=== PATIENT | male | born 1935 | race Caucasian/White ===

== ENCOUNTER 2023-01-04 14:23 | Observation (INO) | payer MEDICARE, SELFPAY ==
[2022-12-30 14:35] VITALS: BMI 26.1
--- NOTE | 2022-12-30 14:56 | PC.NURSE ---
Report to the Outpatient Waiting Room, entrance under the green pavilion located off [facility], at time _8:15AM on date __01/03/23 . Planned Procedure Time: __10:15AM . Time changes happen often and if your time is changed the preop area will call you the afternoon before. - You and your visitor will be asked to self-screen and do not enter if you have any COVID symptoms. - A mask is optional within the hospital at this time. Patients may have clear liquids (water, carbonated beverages, clear teas, apple juice) until 3 hours prior to surgery with a maximum of 20 ounces. - No food from midnight until time of surgery Take the following medications with a SIP of water the morning of surgery: ___AMLODIPINE, LEVETIRACETAM, SERTRALINE, NITROFURANTOIN DO NOT STOP ANY OF YOUR OTHER PRESCRIPTION MEDICATIONS PRIOR TO SURGERY ?EXCEPT THE FOLLOWING Medications to discontinue per physician ___HOLD ASPIRIN & PLAVIX STARTING NOW (12/30/22)PER DR DAWSON/TRICIA. HOLD ALL VITAMINS/SUPPLEMENTS 3 DAYS PRE-OP- LAST DOSE 12/30/22 Please no make-up, nail spanish, hairspray, perfume, deodorant, or body powder the day of surgery. No jewelry (including any body piercings) or valuables the day of surgery, leave them at home. Please take a shower or bath the night before, or the morning of, surgery with an antibacterial soap. Wear comfortable, loose fitting clothing. Children are encouraged to wear pajamas. - Jewelry must be removed prior to entering the operating room. Rings and piercings that are not removed may be cut off. - The hospital will not accept responsibility for valuables. - Please leave all valuables, including medications, at home the day of surgery. If you are going home after surgery, a licensed pack train driver must drive you home. - NO public transportation without another adult if you receive anesthesia. - We recommend that an adult stay with you for 24 hours following discharge. - We also recommend that you do not drive, make important decision, drink alcoholic beverages, or take any drugs that were not prescribed by your health care provider for at least 24 hours after your discharge time. Follow any additional instructions given to you from your surgeon. If you or anyone in your household have experienced Covid symptoms in the past week, please notify your surgeon or the nurse liaison at the phone number below for possible testing. Telephone instructions given to __PT'S (GEENA) and asked if any additional questions and then verbalized understanding. Patient advised to call surgeon office or pre surgery nurse liaison [phone] if any additional questions.
--- NOTE | 2023-01-02 14:29 | WPDANESEPPF ---
Anes - Initial Pre Proc Eval Procedure: Operation Date: 01/03/23 10:15 Proposed Procedures p Cystoscopy, Retrograde Urethrogram, Possible Urethral Dilation, - Ricki Leyva MD s Possible Insertion of Suprapubic Catheter - Ricki Leyva MD Date/Time: 01/02/23 14:29 Surgeon: Ricki Leyva MD Pre Op Diagnosis: gross hematuria abnormal psa Patient Data Age: 87 Gender: M Height: 1.73 m Weight: 78 kg Allergies Allergy/AdvReac Type Severity Reaction Status Date / Time tetanus and diphtheria Allergy Unknown rash Verified 01/03/23 10:09 toxoids Home Medications Medication Instructions Recorded Confirmed Type magnesium oxide 400 mg (241.3 mg 400 mg PO DAILY 02/12/20 12/30/22 History magnesium) tablet (MagOx) aspirin 81 mg tablet,delayed 81 mg PO DAILY 04/13/22 12/30/22 History release (Adult Aspirin Regimen) pantoprazole 40 mg tablet,delayed 40 mg PO QAM #90 tabs 06/08/22 12/30/22 Rx release clopidogrel 75 mg tablet See Rx Instructions .Route 09/13/22 12/30/22 Rx .COMPLEX #90 tabs albuterol sulfate 90 mcg/actuation See Rx Instructions .Route 10/03/22 12/30/22 Rx aerosol inhaler .COMPLEX #9 grams flash glucose scanning reader #1 ea 10/03/22 10/03/22 Rx (FreeStyle Shanae 2 [place]) tamsulosin 0.4 mg capsule (Flomax) 0.4 mg PO DAILY #90 caps 11/01/22 12/30/22 Rx metformin 500 mg tablet 1,000 mg PO BID #360 tabs 12/21/22 12/30/22 Rx amlodipine 10 mg tablet 10 mg PO HS 12/30/22 12/30/22 History atorvastatin 80 mg tablet (Lipitor) 80 mg PO HS 12/30/22 12/30/22 History levetiracetam 750 mg tablet 750 mg PO BID 12/30/22 12/30/22 History nitrofurantoin 100 mg PO BID 12/30/22 12/30/22 History monohydrate/macrocrystals 100 mg capsule sertraline 100 mg tablet 150 mg PO QAM 12/30/22 12/30/22 History sitagliptin phosphate 100 mg 1 mg PO QAM 12/30/22 12/30/22 History tablet (Januvia) Patient hx anesthesia problems: none Family hx anesthesia problems: none Results Review: All pre-operative results and documents have been reviewed as part of the pre-operative evaluation. [facility] Past Medical History Medical History (Updated 12/13/22 @ 10:52 by Ramin Luke MD) Arthritis Bilateral knee pain CAD (coronary artery disease) Diabetes Frequent falls GERD (gastroesophageal reflux disease) Hearing problem Hypertension Parkinson disease Seizure disorder TIA (transient ischemic attack) Surgical History Surgical History S/P TURP Family History Family History Mother Family history of malignant neoplasm Mother Colon cancer Breast cancer Sibling Cancer CAD (coronary artery disease) Hypertension Social History Social History Smoking packs per day: 1 Smoking cigarettes per day: 20.0 Years smoked: 30 Smoking pack-years: 30.00 Smoking status: Former smoker Tobacco type: cigarettes Smoking end date: 01/28/75 Alcohol intake: never Substance use: never Substance use type: does not use Living arrangements: with family Additional living arrangements comments: Occupation/Education: retired Gender identity (if verbalized by the patient): Male Spiritual care concerns: No Agree to blood products: Yes Anes - Eval Final PreProcedure Day of Procedure 01/02/23 14:29 Patient weight: overweight Heart: regular rate and rhythm Lungs: clear to auscultation and normal air movement Airway: Mallampati scale class II Neurological: alert and oriented Last oral intake: >/= 8 hours ASA classification: III Emergent: no Anesthetic plan: proceed Anesthesia type and monitoring: general LMA Results Review: All pre-operative results and documents have been reviewed as part of the pre-operative evaluation. Informed Consent: The patient's anesthetic plan and its att
[2023-01-03] VITALS (21 sets, daily range): BP systolic 132–173; BP diastolic 79–99; PULSE 69–77; RESP 10–19; TEMP 36.2–36.7; O2SAT 96–100
[2023-01-03 09:17] LABS: Glucose Point of Care 187 mg/dl (65-105)
[2023-01-03] MEDS: LACTATED RINGERS 1,000 ML 30 ML IV CONT (10:08)
--- NOTE | 2023-01-03 10:10 | WPDHPUPDATE1 ---
History and Physical Update Update Date/Time: 01/03/23 10:10 History and Physical has been reviewed, including an updated exam of the patient. There are NO changes in the patient's condition. Risks, benefits, and alternatives have been discussed and questions answered. Patient agrees to proceed with procedure. Proceed with retrograde urethrogram, cystoscopy, possible suprapubic tube
[2023-01-03] MEDS: ceFAZolin 2 GM/D5W 50 ML 2 GM/50 ML BAG IVPB (10:27)
[2023-01-03] MEDS: LIDOCAINE HCL 2% GEL UROJET 10 ML PKG MUCOUS MEM (10:43)
--- NOTE | 2023-01-03 11:03 | W.PM.PROC2 ---
Procedure Note - Detailed Date of Procedure 01/03/23 Pre-op Diagnosis gross hematuria abnormal psa , urethral stricture Post-op Diagnosis Same Procedure Performed Retrograde urethrogram, cystoscopy, urethral dilatation, complex Mcclain catheter placement Surgeon Ricki Leyva MD Anesthesia General Description of Procedure Patient is taken the operative suite correctly identified. Once anesthesia was obtained he was placed in the dorsal lithotomy position prepped and draped usual sterile fashion. Nineteen Polish scope inserted into the urethra. Once we got to the prostatic urethra though the pathway into the bladder was not apparent. He has several false passages. This may have been from fusion of the tissue together after his laser TURP many years ago. At this point time a 16 Polish red rubber catheter was inserted in the meatus and retrograde is performed. Contrast did make its way into the bladder. At this point a flexible ureteral scope was then used. I was able to find my way into the bladder the using this manner. A superstiff wire was then inserted into the bladder through the scope. I dilated the urethra using Amplantz dilators up to 22 fr. Nineteen Polish scope was then inserted following the pathway of the guidewire. There was no apparent tumors noted in the bladder. It did appear somewhat capacious in nature. I then placed a [address] Mcclain 20 Polish by incising the end of it and passed over the guidewire. 20 cc were placed in balloon. This was done as there was some oozing from the prostatic urethra. This was connected to the continuous bladder irrigation. Patient is taken recovery stable condition. If his urine clears to be discharged home the Mcclain catheter and have it removed next Monday or Monday for voiding trial. If this becomes a recurring problem he may need a formal transurethral resection of his prostate. This compares to take a lebron please send a copy to my office Drains Yes Packing No Pathology None sent Complications No immediate complications Condition Stable Disposition PACU
[2023-01-03 11:21] LABS: Glucose Point of Care 155 mg/dl (65-105)
--- NOTE | 2023-01-03 12:10 | SUR.PHASEI ---
Dr. Leyva at bedside to assess urine. CBI off for 25 minutes with urine getting darker in color. Dr. Leyva stated to resume CBI for a bit longer and will reassess patient.
--- NOTE | 2023-01-03 13:52 | SUR.PHASEI ---
1352 - MD Leyva notified of pt. catheter showing pink tinged urine output despite CBI. Pt. is to be admitted overnight per MD Leyva.
--- NOTE | 2023-01-03 15:12 | ADMGEN ---
This patient, Fabien Tanner, was admitted to Medical Room 243-01. Patient/family oriented to hospital policies and general routines including ID bracelet, bed and alarms, visiting hours, pain management, procedures, bathroom and other care routines, personal items, smoking policy, room service/diet, and visiting hours. Information on how to activate the Rapid Response Team has been discussed. Patient/Family are encouraged to report perceived risks to care and to ask questions if they do not understand what they are told or what they should do.
[2023-01-03] MEDS: metFORMIN HCL 500 MG TABLET 1000 MG PO (17:13)
[2023-01-03] MEDS: ceFAZolin 1 GM/NS 50 ML 1 GM/50 ML BAG IVPB (17:13)
[2023-01-03] MEDS: DOCUSATE SODIUM 100 MG CAPSULE PO (17:13)
[2023-01-03] MEDS: ATORVASTATIN 40 MG TABLET 80 MG PO (20:01)
[2023-01-03] MEDS: levETIRAcetam 250 MG TABLET 750 MG PO (20:01)
[2023-01-03] MEDS: amLODIPine BESYLATE 5 MG TABLET 10 MG PO (20:01)
[2023-01-03 21:20] LABS: Glucose Point of Care 230 mg/dl (65-105)
--- NOTE | ~2023-01-04 | XR_ITS ---
EXAMINATION: XR urethrocystogram DATE: 01/03/2023 12:05 INDICATION: Urethral stricture. TECHNIQUE: 34 intraoperative fluoroscopic views of the pelvis were obtained. I was not present. Fluor oscopy exposure time was 30 seconds. COMPARISON: None. FINDINGS: There is a stricture of the prosthetic urethra. Images demonstrate a dilator in the urethra . IMPRESSION: 1. 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 Reviewed, dictated and finalized at location A.
[2023-01-04 00:45] VITALS: BP 144/68; PULSE 72; RESP 18; TEMP 36.7; O2SAT 99
[2023-01-04] MEDS: ceFAZolin 1 GM/NS 50 ML 1 GM/50 ML BAG IVPB (01:34)
[2023-01-04 04:45] VITALS: BP 168/85; PULSE 72; RESP 18; TEMP 36.7; O2SAT 98
[2023-01-04 05:13] LABS: Hematocrit 35.8 % (42.0-52.0); Hemoglobin 12.4 g/dL (14.0-18.0)
[2023-01-04 05:22] LABS: Anion Gap 4 mmol/L (8-16); Blood Urea Nitrogen 19 mg/dL (9-20); Calcium 8.8 mg/dL (8.4-10.2); Carbon Dioxide 31 mmol/L (22-30); Chloride 98 mmol/L (98-107); Estimated CRCL calculation 32 ml/min; Estimated Glomerular Filt Rate 48; Glucose 184 mg/dL (65-110); Potassium 4.7 mmol/L (3.4-5.0); Sodium 133 mmol/L (137-145)
[2023-01-04 08:00] VITALS: O2SAT 98
[2023-01-04] MEDS: CEPHALEXIN 500 MG CAPSULE PO ×4 (08:08→20:11)
[2023-01-04] MEDS: metFORMIN HCL 500 MG TABLET 1000 MG PO ×2 (08:08→16:36)
[2023-01-04] MEDS: TAMSULOSIN HCL 0.4 MG CAPSULE PO (08:09)
[2023-01-04] MEDS: DOCUSATE SODIUM 100 MG CAPSULE PO ×2 (08:09→16:36)
[2023-01-04] MEDS: levETIRAcetam 250 MG TABLET 750 MG PO ×2 (08:09→20:10)
[2023-01-04] MEDS: SERTRALINE HCL 50 MG TABLET 150 MG PO (08:09)
[2023-01-04] MEDS: PANTOPRAZOLE 40 MG TABLET PO (08:09)
--- NOTE | 2023-01-04 09:39 | WPDANESPN ---
Anes - Prog Note Post-Op Date/Time: 01/04/23 09:39 Cardiovascular status: normal Respiratory status: normal Airway patency: baseline Mental status: baseline Post-Op hydration status: normal Vital Signs: Last Vital Signs Temp 98.0 F 01/04/23 04:45 Pulse 72 01/04/23 04:45 Resp 18 01/04/23 04:45 BP 168/85 H 01/04/23 04:45 Pulse Ox 98 01/04/23 08:00 O2 Del Method Room Air 01/04/23 08:00 O2 Flow Rate 6 01/03/23 11:25 Pain Score (VAS): 0 I/O: Intake & Output 01/03/23 01/04/23 01/04/23 23:59 07:59 15:59 Intake Total 810 50 360 Output Total 6997 6060 Balance -5715 -6019 360 Laboratory Tests 01/04/23 04:39 01/04/23 04:39 01/03/23 01/03/23 01/04/23 11:18 21:17 04:39 Hgb 12.4 L Hct 35.8 L Sodium 133 L Potassium 4.7 Chloride 98 Carbon Dioxide 31 H Anion Gap 4 L BUN 19 Creatinine 1.40 H Estim Creat Clear Calc 32 Estimated GFR 48 L Glucose 184 H POC Capillary Glucose 155 H 230 H Calcium 8.8 Post-procedural complaints: none Patient Feedback: Patient satisfied with anesthetic care.
[2023-01-04 10:15] VITALS: BP 136/71; PULSE 75; RESP 14; TEMP 36.4; O2SAT 99
--- NOTE | 2023-01-04 14:07 | WPDUROPN2 ---
Progress Note: A&P Assessment and Plan (1) Urethral stricture: Code(s): N35.919 - Unspecified urethral stricture, male, unspecified site Status: Acute Assessment and Plan: Keep overnight on CBI, wean to off in the morning to re-assess. If clear tomorrow of CBI ok to discharge home. Subjective Subjective Date/Time Seen: 01/04/23 14:07 Retrograde Urethrogram, Cystoscopy, Complex Mcclain Cath Urethral Dilation. Patient doing well, tolerating diet and activity well. Urine clear on CBI, but got a little bloody with clots after CBI was weaned off. Patient will stay overnight back on CBI. Post Op day: 1 Review of Systems Cardiovascular: Cardiovascular: Denies chest pain Respiratory: Respiratory: Reports no additional respiratory complaints Gastrointestinal: Gastrointestinal: Denies abdominal pain, Denies nausea and Denies vomiting Genitourinary: Genitourinary: Reports hematuria, Denies flank pain, Denies urinary frequency, Denies urinary hesitancy, Denies urinary incontinence and Denies urinary urgency Exam Const: General: cooperative and comfortable Resp: Effort & Inspection: normal respiratory effort Cardio: Rate: regular rate GI: GI Palp: Yes Soft to palpation and No Tenderness to palpation present (GI) : General: No no CVA tenderness Urinary Catheter: Urinary Catheter: patent and draining and urine clear Objective Data Vital Signs Vital Signs: Vital Signs - 24 hr 01/03/23 14:15 01/03/23 14:30 01/03/23 14:45 Temperature Pulse Rate 69 73 73 Respiratory Rate 16 16 13 Blood Pressure 155/96 H 152/82 H 149/90 H Pulse Oximetry 100 100 100 Oxygen Delivery Room Air Room Air Room Air 01/03/23 15:30 01/03/23 15:00 01/03/23 15:15 Temperature 97.5 F L 97.5 F L Pulse Rate 69 73 Respiratory Rate 14 16 Blood Pressure 173/79 H 154/87 H Pulse Oximetry 98 100 Oxygen Delivery Room Air 01/03/23 15:45 01/03/23 16:45 01/03/23 19:57 Temperature 97.7 F 97.6 F 98.1 F Pulse Rate 73 77 72 Respiratory Rate 14 16 18 Blood Pressure 157/79 H 153/82 H 132/80 Pulse Oximetry 99 100 99 Oxygen Delivery 01/04/23 00:45 01/04/23 04:45 01/04/23 08:00 Temperature 98.0 F 98.0 F Pulse Rate 72 72 Respiratory Rate 18 18 Blood Pressure 144/68 H 168/85 H Pulse Oximetry 99 98 98 Oxygen Delivery Room Air 01/04/23 10:15 Temperature 97.5 F L Pulse Rate 75 Respiratory Rate 14 Blood Pressure 136/71 Pulse Oximetry 99 Oxygen Delivery Intake/Output Intake/Output: Intake & Output 01/01/23 01/02/23 01/03/23 01/04/23 23:59 23:59 23:59 23:59 Intake Total 3860 650 Output Total 60457 1683 [facility] -[id number] -8698 Meds/Results Medications: Active Medications Generic Name Dose Route Start Last Admin Trade Name Freq PRN Reason Stop Dose Admin Hydrocodone Bitart/Acetaminophen 1 tab 01/03/23 14:49 Hydrocodone/Acetaminophen (*Crx) 5-325 Mg Tablet PO Q4H PRN Pain Rated 1-6 Albuterol 2 puff 01/03/23 14:49 Albuterol Sulfate (*Sp) Aerosol 1 Puff INHALATION Q4H PRN SOB OR WHEEZING Amlodipine Besylate 10 mg 01/03/23 21:00 01/03/23 20:01 Amlodipine Besylate 5 Mg Tablet PO 10 mg HS PETE Administration Atorvastatin Calcium 80 mg 01/03/23 21:00 01/03/23 20:01 Atorvastatin 40 Mg Tablet PO 80 mg HS PETE Administration Cephalexin HCl 500 mg 01/04/23 09:00 01/04/23 12:25 Cephalexin 500 Mg Capsule PO 500 mg QID PETE Administration Docusate Sodium 100 mg 01/03/23 17:00 01/04/23 08:09 Docusate Sodium 100 Mg Capsule PO 100 mg BID PETE Administration Hyoscyamine 0.125 mg 01/03/23 14:49 Hyoscyamine Sulfate 0.125 Mg Tablet SUBLINGUAL Q6H PRN Bladder Spasm Levetiracetam 750 mg 01/03/23 21:00 01/04/23 08:09 Levetiracetam 250 Mg Tablet PO 750 mg Q12HR PETE Administration Metformin HCl 1,000 mg 01/03/23 17:00 01/04/23 08:08 Metformin Hcl 500 Mg Tablet PO 1,000 mg BIDWM PETE Admi
[2023-01-04 14:35] VITALS: BP 123/61; PULSE 79; RESP 16; TEMP 36.7; O2SAT 99
[2023-01-04 16:45] LABS: Glucose Point of Care 203 mg/dl (65-105)
[2023-01-04 19:54] VITALS: BP 154/80; PULSE 78; RESP 18; TEMP 36.7; O2SAT 99
[2023-01-04] MEDS: ATORVASTATIN 40 MG TABLET 80 MG PO (20:11)
[2023-01-04] MEDS: amLODIPine BESYLATE 5 MG TABLET 10 MG PO (20:11)
[2023-01-04 20:20] LABS: Glucose Point of Care 284 mg/dl (65-105)
[2023-01-05 06:00] VITALS: BP 147/72; PULSE 85; RESP 18; TEMP 36.4; O2SAT 100
[2023-01-05] MEDS: DOCUSATE SODIUM 100 MG CAPSULE PO (07:59)
[2023-01-05] MEDS: levETIRAcetam 250 MG TABLET 750 MG PO (07:59)
[2023-01-05] MEDS: CEPHALEXIN 500 MG CAPSULE PO (07:59)
[2023-01-05] MEDS: metFORMIN HCL 500 MG TABLET 1000 MG PO (07:59)
[2023-01-05 08:00] VITALS: O2SAT 100
[2023-01-05] MEDS: PANTOPRAZOLE 40 MG TABLET PO (08:00)
[2023-01-05] MEDS: TAMSULOSIN HCL 0.4 MG CAPSULE PO (08:00)
[2023-01-05] MEDS: SERTRALINE HCL 50 MG TABLET 150 MG PO (08:00)
[2023-01-05 08:08] LABS: Glucose Point of Care 251 mg/dl (65-105)
--- NOTE | 2023-01-05 08:52 | WPDUROPN2 ---
Progress Note: A&P Assessment and Plan (1) Urethral stricture: Code(s): N35.919 - Unspecified urethral stricture, male, unspecified site Status: Acute Assessment and Plan: Ok to discharge home with catheter. Subjective Subjective Date/Time Seen: 01/05/23 08:52 POD #2 Retrograde Urethrogram, Cystoscopy, Urethral dilation, Complex Mcclain Cath Placement Patient doing very well today, tolerating diet and pain. Urine is light pink off CBI with activity. Post Op day: 2 Review of Systems Cardiovascular: Cardiovascular: Reports no additional cardiovascular complaints Respiratory: Respiratory: Reports no additional respiratory complaints Gastrointestinal: Gastrointestinal: Denies abdominal pain, Denies nausea and Denies vomiting Genitourinary: Genitourinary: Reports no additional male genitourinary complaints, Reports hematuria, Denies flank pain and Denies scrotal swelling Exam Const: General: cooperative and comfortable Resp: Effort & Inspection: normal respiratory effort Cardio: Rate: regular rate GI: GI Palp: Yes Soft to palpation and No Tenderness to palpation present (GI) : General: Yes no CVA tenderness Urinary Catheter: Urinary Catheter: patent and draining, urine clear and urine pink Extrem: Right lower extremity: no edema Left lower extremity: no edema Objective Data Vital Signs Vital Signs: Vital Signs - 24 hr 01/04/23 10:15 01/04/23 14:35 01/04/23 19:54 Temperature 97.5 F L 98.1 F 98.0 F Pulse Rate 75 79 78 Respiratory Rate 14 16 18 Blood Pressure 136/71 123/61 154/80 H Pulse Oximetry 99 99 99 Oxygen Delivery 01/04/23 20:00 01/05/23 06:00 01/05/23 08:00 Temperature 97.6 F Pulse Rate 85 Respiratory Rate 18 Blood Pressure 147/72 H Pulse Oximetry 100 100 Oxygen Delivery Room Air Room Air Intake/Output Intake/Output: Intake & Output 01/02/23 01/03/23 01/04/23 01/05/23 23:59 23:59 23:59 23:59 Intake Total 3860 1020 240 Output Total 87840 8876 [id number] [facility] -7065 -5870 -5560 Meds/Results Medications: Active Medications Generic Name Dose Route Start Last Admin Trade Name Freq PRN Reason Stop Dose Admin Hydrocodone Bitart/Acetaminophen 1 tab 01/03/23 14:49 Hydrocodone/Acetaminophen (*Crx) 5-325 Mg Tablet PO Q4H PRN Pain Rated 1-6 Albuterol 2 puff 01/03/23 14:49 Albuterol Sulfate (*Sp) Aerosol 1 Puff INHALATION Q4H PRN SOB OR WHEEZING Amlodipine Besylate 10 mg 01/03/23 21:00 01/04/23 20:11 Amlodipine Besylate 5 Mg Tablet PO 10 mg HS PETE Administration Atorvastatin Calcium 80 mg 01/03/23 21:00 01/04/23 20:11 Atorvastatin 40 Mg Tablet PO 80 mg HS PETE Administration Cephalexin HCl 500 mg 01/04/23 09:00 01/05/23 07:59 Cephalexin 500 Mg Capsule PO 500 mg QID PETE Administration Docusate Sodium 100 mg 01/03/23 17:00 01/05/23 07:59 Docusate Sodium 100 Mg Capsule PO 100 mg BID PETE Administration Hyoscyamine 0.125 mg 01/03/23 14:49 Hyoscyamine Sulfate 0.125 Mg Tablet SUBLINGUAL Q6H PRN Bladder Spasm Levetiracetam 750 mg 01/03/23 21:00 01/05/23 07:59 Levetiracetam 250 Mg Tablet PO 750 mg Q12HR PETE Administration Metformin HCl 1,000 mg 01/03/23 17:00 01/05/23 07:59 Metformin Hcl 500 Mg Tablet PO 1,000 mg BIDWM PETE Administration Morphine Sulfate 2 mg 01/03/23 14:49 Morphine Sulfate (*Crx) 2 Mg/Ml Inj IV PUSH Q2H PRN Pain Rated 7-10 Naloxone HCl 0.1 mg 01/03/23 14:49 Naloxone Hcl 0.4 Mg/Ml Vial IV PUSH Q2M PRN Opiate Reversal Ondansetron HCl 4 mg 01/03/23 14:49 Ondansetron Inj 4 Mg/2 Ml Vial IV PUSH Q12H PRN Nausea And Vomiting Pantoprazole Sodium 40 mg 01/04/23 09:00 01/05/23 08:00 Pantoprazole 40 Mg Tablet PO 40 mg QAM PETE Administration Sertraline HCl 150 mg 01/04/23 09:00 01/05/23 08:00 Sertraline Hcl 50 Mg Tablet PO 150 mg QAM PETE Administration
--- NOTE | 2023-01-05 09:02 | PM.DS ---
DS: Admitting Diagnosis Discharge Date 01/05/23 Admitting Diagnosis Urethral Stricture DS: Discharge Diagnosis Discharge Diagnosis Plan Urethral Stricture DS: Summary Hospital Course Hospital Course: The patient underwent a Retrograde Urethrogram, Cystoscopy, Urethral dilation, Complex Mcclain Cath Placement with Dr. Leyva on 01/03/23. He tolerated his procedure well and went to recovery in stable condition then to the floor for further observation. He tolerated diet, activity and pain well. His urine become bloody off CBI with activity, therefore we kept him overnight. His urine is now clear this morning off CBI with activity and he is doing well. He will go home on a diabetic diet, activity as tolerated with catheter to be removed Monday in the office. Time spent discussing smoking cessation with patient: more than 10 minutes Status at Discharge Functional status at discharge: independent ambulation Time Spent with Patient Time attestation: Total time spent providing and/or coordinating discharge services: Time spent: Less than 30 minutes Exam Const: General: cooperative and comfortable Resp: Effort & Inspection: normal respiratory effort Cardio: Rate: regular rate GI: GI Palp: Yes Soft to palpation and No Tenderness to palpation present (GI) : General: Yes no CVA tenderness Urinary Catheter: Urinary Catheter: patent and draining, urine clear and urine pink Extrem: Right lower extremity: no edema Left lower extremity: no edema DS: Data Data Completed and Pending Labs on day of discharge: Labs from last 24 hours 01/05/23 01/04/23 01/04/23 08:05 20:16 16:33 POC Capillary Glucose 251 H 284 H 203 H Discharge Plan Discharge Attending physician on discharge: Ricki Leyva Discharging Clinician: Mervat Casillas Anticipated Discharge Date/Time: 01/05/23 08:57 Patient Disposition: Home Health Service Activity: may shower, no straining and as tolerated Diet: diabetic Discharge Instructions: Per Care Coordination, pt will utilize RN, PT/OT. [facility] can be reached at [phone]. [facility] will contact you to set up visits. RN, please fax discharge instructions to [phone] once complete. thank you. Patient to have Mcclain catheter removed on Monday at 11:15am in the office next week for voiding trial. Call the office or go to the ER if you develop a fever, grossly bloody urine, symptoms of a urinary tract infection, or a catheter that is no longer draining. Patient Instructions: Antibiotic Form Stand Alone Forms: General Discharge Information, General Discharge Instructions Follow-up/Referrals: Ricki Leyva MD [Physician] - Discharge Medications: New docusate sodium 100 mg Capsule 100 mg PO BID Qty: 14 0RF sulfamethoxazole-trimethoprim [Bactrim DS] 800-160 mg tablet 1 tablet PO Q12H Qty: 10 0RF Continued magnesium oxide [MagOx] 400 mg (241.3 mg magnesium) tablet 400 mg PO DAILY albuterol sulfate 90 mcg/actuation HFA aerosol inhaler See Rx Instructions .ROUTE .COMPLEX Qty: 9 1RF Dose Instruction: INHALE 2 PUFFS BY MOUTH EVERY 4 HOURS NEEDED FOR SHORTNESS OF BREATH FOR WHEEZING Rx Instructions: INHALE 2 PUFFS BY MOUTH EVERY 4 HOURS NEEDED FOR SHORTNESS OF BREATH FOR WHEEZING atorvastatin [Lipitor] 80 mg tablet 80 mg PO HS sertraline 100 mg tablet 150 mg PO QAM Rx Instructions: TAKE 1 & 1/2 (ONE & ONE-HALF) TABLETS BY MOUTH ONCE DAILY amlodipine 10 mg tablet 10 mg PO HS levetiracetam 750 mg tablet 750 mg PO BID Rx Instructions: TAKE 1 TABLET BY MOUTH EVERY 12 HOURS nitrofurantoin monohyd/m-cryst 100 mg capsule 100 mg PO BID pantoprazole 40 mg tablet,delayed release (DR/EC) 40 mg PO QAM Qty: 90 1RF tamsulosin [Flomax] 0.4 mg capsule 0.4 mg PO DAILY Qty: 90 0RF metformin 500 mg tablet 1,000 mg PO BI
== END 2023-01-05 11:50 | disposition home or self-care (01) ==
LOC: ANHSURGERY 14:37 → ANH2MED 14:37
PROVIDERS: Admitting Provider Urology; PCP Family Medicine; Visit Provider Urology
PROC: (CPT 52352; principal; 2023-01-03 10:15)
PROC: 0T9B30Z Drainage of Bladder with Drainage Device, Percutaneous Approach (ICD-10-PCS; CPT 51102; 2023-01-03 10:15)
DX: N35.919 Unspecified urethral stricture, male, unspecified site (principal); R31.0 Gross hematuria; R97.20 Elevated prostate specific antigen [PSA]; I25.10 Atherosclerotic heart disease of native coronary artery without angina pectoris; I10 Essential (primary) hypertension; G20 Parkinson's disease; E66.3 Overweight; G40.909 Epilepsy, unspecified, not intractable, without status epilepticus; Z68.24 Body mass index [BMI] 24.0-24.9, adult; Z87.891 Personal history of nicotine dependence; Z86.73 Personal history of transient ischemic attack (TIA), and cerebral infarction without residual deficits; Z79.82 Long term (current) use of aspirin; Z79.02 Long term (current) use of antithrombotics/antiplatelets; Z79.51 Long term (current) use of inhaled steroids; Z79.84 Long term (current) use of oral hypoglycemic drugs; Z79.899 Other long term (current) drug therapy; Z82.49 Family history of ischemic heart disease and other diseases of the circulatory system
CPT/HCPCS: 52001; 36415; 51610; 74450; 80048; 82948; 85014; 85018; A9270; C1726; C1769; G0378; J0690; J2405; J2704; J3010; J7120

== ENCOUNTER 2024-03-20 18:13 | Observation (INO) | payer MEDICARE, SELFPAY ==
--- NOTE | 2024-03-20 17:20 | ADMGEN ---
This patient, Fabien Tanner, was admitted to Medical Room 344-01. Patient/family oriented to hospital policies and general routines including ID bracelet, bed and alarms, visiting hours, pain management, procedures, bathroom and other care routines, personal items, smoking policy, room service/diet, and visiting hours. Information on how to activate the Rapid Response Team has been discussed. Patient/Family are encouraged to report perceived risks to care and to ask questions if they do not understand what they are told or what they should do.
[2024-03-20 17:29] VITALS: BP 136/72; PULSE 66; RESP 20; TEMP 36.1; O2SAT 100
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
[2024-03-20 20:00] VITALS: PULSE 73
[2024-03-20 20:21] LABS: Hematocrit 25.4 % (42.0-52.0); Hemoglobin 8.9 g/dL (14.0-18.0); Mean Corpuscular Hemoglobin 32.6 pg (26-34); Mean Platelet Volume 9.3 fl (7.4-10.4); Platelet Count Result 157 k/mm3 (150-375); Red Blood Count 2.73 M/mm3 (4.6-6.20); Red Cell Distribution Width 13.7 % (11.5-14.5); White Blood Count 6.5 K/mm3 (4.5-10.0)
[2024-03-20 20:26] LABS: Glucose Point of Care 326 mg/dl (65-105)
[2024-03-20] MEDS: AMPICILLIN 1 GM/NS 50 ML 1 GM/50 ML BAG IVPB (20:36)
[2024-03-20] MEDS: ATORVASTATIN 40 MG TABLET 80 MG PO (20:37)
[2024-03-20] MEDS: levETIRAcetam 250 MG TABLET 750 MG PO (20:37)
[2024-03-20] MEDS: amLODIPine BESYLATE 10 MG TABLET PO (20:37)
[2024-03-20] MEDS: INSULIN ASPART (*BKC) 100 UNITS/ML SUB-Q (20:44)
[2024-03-20 21:38] VITALS: BP 144/60; PULSE 70; RESP 20; TEMP 36.6; O2SAT 100
[2024-03-21] VITALS (15 sets, daily range): BP systolic 135–161; BP diastolic 60–90; PULSE 65–81; RESP 14–23; TEMP 36.3–37.1; O2SAT 98–100; BMI 25.0
[2024-03-21] MEDS: AMPICILLIN 1 GM/NS 50 ML 1 GM/50 ML BAG IVPB ×4 (01:33→20:04)
[2024-03-21 05:54] LABS: Basophils Percent Auto 0.6 % (0.2-1.2); Eosinophils Absolute Auto 0.3 K/mm3 (0-0.3); Eosinophils Percent Auto 5.1 % (0-4.4); Hematocrit 25.2 % (42.0-52.0); Hemoglobin 8.9 g/dL (14.0-18.0); Immature Granulocyte Absolute 0.02 K/mm3 (0.00-0.031); Immature Granulocyte Percent A 0.4 % (0-0.5); Lymphocytes Absolute Auto 0.76 K/mm3 (0.9-3.2); Lymphocytes Percent Auto 14.9 % (18.3-44.2); Mean Corpuscular HGB Conc 35.3 g/dl (32-36); Mean Corpuscular Volume 93.3 fl (80-100); Mean Platelet Volume 9.2 fl (7.4-10.4); Monocytes Absolute Auto 0.5 K/mm3 (0.1-0.6); Monocytes Percent Auto 9.2 % (2.6-8.5); Neutrophils Absolute Auto 3.6 K/mm3 (1.3-6.7); Neutrophils Percent Auto 69.8 % (45.5-73.1); Platelet Count Result 148 k/mm3 (150-375); Red Cell Distribution Width 13.5 % (11.5-14.5); White Blood Count 5.1 K/mm3 (4.5-10.0)
[2024-03-21 06:13] LABS: INR 1.1; Prothrombin Time 14.9 Seconds (11.1-14.7)
[2024-03-21 06:20] LABS: Alanine Aminotransferase 11 U/L (6-50); Alkaline Phosphatase 77 U/L (38-126); Anion Gap 6 mmol/L (4-12); Aspartate Amino Transferase 16 U/L (17-59); Bilirubin,Total 0.4 mg/dL (0.2-1.3); Blood Urea Nitrogen 20 mg/dL (9-20); Calcium 8.5 mg/dL (8.4-10.2); Carbon Dioxide 23 mmol/L (22-30); Chloride 105 mmol/L (98-107); Estimated Glomerular Filt Rate 41; Glucose 138 mg/dL (65-110); Sodium 134 mmol/L (137-145)
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
--- NOTE | 2024-03-21 06:41 | WPDHPUPDATE1 ---
History and Physical Update Update Date/Time: 03/21/24 06:41 History and Physical has been reviewed, including an updated exam of the patient. There are NO changes in the patient's condition. Risks, benefits, and alternatives have been discussed and questions answered. Patient agrees to proceed with procedure.
[2024-03-21 07:09] LABS: Hemoglobin A1C 7.5 % (<5.7)
[2024-03-21] MEDS: levETIRAcetam 250 MG TABLET 750 MG PO ×2 (08:20→20:05)
[2024-03-21] MEDS: SERTRALINE HCL 50 MG TABLET 150 MG PO (08:20)
[2024-03-21 08:30] LABS: Glucose Point of Care 136 mg/dl (65-105)
--- NOTE | 2024-03-21 11:32 | WPDPN ---
Progress Note: A&P Assessment and Plan (1) Anemia: Qualifiers: Anemia type: other cause Other causes of anemia: acute posthemorrhagic Qualified Code(s): D62 - Acute posthemorrhagic anemia Code(s): D64.9 - Anemia, unspecified Status: Acute (2) Hematuria: Qualifiers: Hematuria type: gross Qualified Code(s): R31.0 - Gross hematuria Code(s): R31.9 - Hematuria, unspecified Status: Acute (3) Encounter for screening for malignant neoplasm of prostate: Code(s): Z12.5 - Encounter for screening for malignant neoplasm of prostate Status: Acute Plan patient is an elderly man poor historian, with hematuria, found to have a blood clot in his bladder, seen by his urologist patient will have cystoscopy and evacuate the clot. patient is clinically stable, will monitor. will have PT/OT evaluate the patient. Subjective Date/time seen: 03/21/24 11:32 Interval history: Hematuria H&Y-IMO-Bvnxzyitw: 88 y/o M presents here with hematuria with PMH of Parkinson's, seizures, hyperlipidemia, hypertension, CVA, COPD, gastric ulcer, BPH, and diabetes. The patient initially presented to [facility] for further evaluation of hematuria that started on 03/16 or 03/17. Patient was then admitted on 03/17. Patient had recurrence of hematuria yesterday and was started on CBI shortly thereafter. Hematuria has resolved with CBI. However CT at OSH was concerning for hemorrhage/large clot in the bladder. Ada PLUMMER (Urology) reviewed the imaging and recommended patient be transferred for cystoscopy tomorrow (03/21). While admitted, patient was started on Rocephin on 03/18. Initial urine culture was contaminated, OSH obtaining another sample for culture however they noted this may be difficult due to CBI. Per review of OSH labs, since admission hemoglobin has dropped from 14.8 -> 8.7. Plavix has been held. Patient is currently reporting chills. Denying dizziness, abdominal pain, or worsening fatigue. patient is an elderly man poor historian, with hematuria, found to have a blood clot in his bladder, seen by his urologist patient will have cystoscopy and evacuate the clot. patient is clinically stable, will monitor. will have PT/OT evaluate the patient. Review of Systems Cardiovascular: Cardiovascular: Denies chest pain, Denies lightheadedness, Denies palpitations and Denies dyspnea Respiratory: Respiratory: Denies dyspnea Gastrointestinal: Gastrointestinal: Denies diarrhea, Denies nausea and Denies vomiting Genitourinary: Genitourinary: Denies hematuria and Denies dysuria Endocrine: Endocrine: Denies palpitations Exam Narrative: Elderly frail Patient is comfortable, NAD HEENT: eyes are clear and none icteric LUNGS:CTA HEART: RR S1S2 ABD: BS+, Soft and nontender Lower extremities: no edema SKIN: nonjaundiced Neuro: grossly intact. Objective Data Vital Signs Vital Signs: Vital Signs - 24 hr 03/20/24 17:29 03/20/24 18:00 03/20/24 20:00 Temperature 36.1 C L Pulse Rate 66 Respiratory Rate 20 Blood Pressure 136/72 Pulse Oximetry 100 Oxygen Delivery Room Air Room Air 03/20/24 21:38 03/20/24 20:00 03/21/24 00:00 Temperature 36.6 C Pulse Rate 70 73 68 Respiratory Rate 20 Blood Pressure 144/60 H Pulse Oximetry 100 Oxygen Delivery 03/21/24 04:00 03/21/24 06:00 03/21/24 08:24 Temperature 36.3 C L Pulse Rate 69 65 Respiratory Rate 20 Blood Pressure 156/71 H Pulse Oximetry 99 Oxygen Delivery Room Air Intake/Output Intake/Output: Intake & Output 03/18/24 03/19/24 03/20/24 03/21/24 23:59 23:59 23:59 23:59 Intake Total 290 350 Output Total 3700 Balance 290 -3350 Meds/Results Medications: Active Medications Generic Name Dose Route Start Last Admin Trade Name Freq PRN Reason Stop Dose Admin Albuterol 2 puff 03/20/24 18:40 Albuterol Sulfate (*Sp) Aerosol 1 Puff INHALATI
[2024-03-21] MEDS: ALBUTEROL SULFATE (*SP) AEROSOL 1 PUFF 2 PUFF INHALATION (11:59)
[2024-03-21 12:28] LABS: Glucose Point of Care 127 mg/dl (65-105)
[2024-03-21 13:15] LABS: Glucose Point of Care 146 mg/dl (65-105)
--- NOTE | 2024-03-21 13:27 | WPDANESEPPF ---
Anes - Initial Pre Proc Eval Procedure: Operation Date: 03/21/24 13:45 Proposed Procedures p Cystoscopy, Evacuation Bladder Clots - Raza Caballero MD Date/Time: 03/21/24 13:27 Surgeon: Soha Meeks MD Pre Op Diagnosis: Anemia/Hematuria Patient Data Age: 88 Gender: M Height: Weight: Last Vital Signs Temp 98.6 F 03/21/24 13:00 Pulse 74 03/21/24 13:00 Resp 14 03/21/24 13:00 BP 136/64 03/21/24 13:00 Pulse Ox 100 03/21/24 13:00 O2 Del Method Room Air 03/21/24 13:00 Allergies Allergy/AdvReac Type Severity Reaction Status Date / Time tetanus and diphtheria Allergy Unknown rash Verified 09/06/23 08:49 toxoids Home Medications Medication Instructions Recorded Confirmed Type magnesium oxide 400 mg (241.3 mg 400 mg PO QPM 02/12/20 03/21/24 History magnesium) tablet (MagOx) amlodipine 10 mg tablet 10 mg PO HS #90 tabs 07/26/23 03/20/24 Rx pantoprazole 40 mg tablet,delayed See Rx Instructions .Route 07/26/23 03/20/24 Rx release .COMPLEX #90 tabs tamsulosin 0.4 mg capsule See Rx Instructions .Route 09/22/23 03/20/24 Rx .COMPLEX #90 caps clopidogrel 75 mg tablet See Rx Instructions .Route 12/01/23 03/20/24 Rx .COMPLEX #90 tabs levetiracetam 750 mg tablet See Rx Instructions .Route 12/01/23 03/20/24 Rx .COMPLEX #180 tabs metformin 500 mg tablet 1,000 mg PO BID #360 tabs 01/15/24 03/20/24 Rx sitagliptin phosphate 100 mg See Rx Instructions .Route 02/07/24 03/20/24 Rx tablet (Januvia) .COMPLEX #90 tabs empagliflozin 25 mg tablet 25 mg PO DAILY #90 tabs 03/08/24 03/20/24 Rx (Jardiance) albuterol sulfate 90 mcg/actuation 2 puff inhalation Q4H PRN sob 03/20/24 03/20/24 History aerosol inhaler ascorbic acid (vitamin C) 500 mg 500 mg PO DAILY 03/20/24 03/20/24 History tablet atorvastatin 80 mg tablet (Lipitor) 40 mg PO HS 03/20/24 03/21/24 History ondansetron 4 mg disintegrating 4 mg PO Q6H PRN Nausea 03/20/24 03/20/24 History tablet sertraline 100 mg tablet 150 mg PO DAILY 03/20/24 03/20/24 History carbidopa 25 mg-levodopa 100 mg 1 tablet PO TID 03/21/24 03/21/24 History tablet primidone 50 mg tablet 25 mg PO HS 03/21/24 03/21/24 History Laboratory Tests 03/20/24 03/20/24 03/21/24 20:16 20:24 05:39 WBC 6.5 K/mm3 5.1 K/mm3 (4.5-10.0) (4.5-10.0) RBC 2.73 L M/mm3 2.70 L M/mm3 (4.6-6.20) (4.6-6.20) Hgb 8.9 L D g/dL 8.9 L g/dL (14.0-18.0) (14.0-18.0) Hct 25.4 L % 25.2 L % (42.0-52.0) (42.0-52.0) MCV 93.0 fl 93.3 fl (80-100) (80-100) MCH 32.6 pg 33.0 pg (26-34) (26-34) MCHC 35.0 g/dl 35.3 g/dl (32-36) (32-36) RDW 13.7 % 13.5 % (11.5-14.5) (11.5-14.5) Plt Count 157 k/mm3 148 L k/mm3 (150-375) (150-375) MPV 9.3 fl 9.2 fl (7.4-10.4) (7.4-10.4) Immature Gran % (Auto) 0.4 % (0-0.5) Neut % (Auto) 69.8 % (45.5-73.1) Lymph % (Auto) 14.9 L % (18.3-44.2) [place] % (Auto) 9.2 H % (2.6-8.5) Eos % (Auto) 5.1 H % (0-4.4) Baso % (Auto) 0.6 % (0.2-1.2) Lymph # (Auto) 0.76 L K/mm3 (0.9-3.2) [place] # (Auto) 0.5 K/mm3 (0.1-0.6) Eos # (Auto) 0.3 K/mm3 (0-0.3) Baso # (Auto) 0.0 K/mm3 (0.0-0.1) Abs Immat Gran (auto) 0.02 K/mm3 (0.00-0.031) Absolute Neuts (auto) 3.6 K/mm3 (1.3-6.7) Absolute Nucleated RBC 0.000 K/mm3 (0.0-0.012) Nucleated RBC % 0.0 % (0.0-0.2) PT 14.9 H Seconds (11.1-14.7) INR 1.1 APTT 27.0 Seconds (22.3-36.8) Sodium 134 L mmol/L (137-145) Potassium 4.0 mmol/L (3.4-5.0) Chloride 105 mmol/L (98-107) Carbon Dioxide 23 mmol/L (22-30) Anion Gap 6 mmol/L (4-12) BUN 20 mg/dL (9-20) Creatinine 1.60 H mg/dL (0.7-1.3) Estim Creat Clear Calc Not Reportable
[2024-03-21] MEDS: LIDOCAINE HCL 2% GEL UROJET 10 ML PKG MUCOUS MEM (14:00)
--- NOTE | 2024-03-21 14:23 | W.PM.PROC2 ---
Procedure Note - Detailed Date of Procedure 03/21/24 Pre-op Diagnosis Anemia/Hematuria Post-op Diagnosis Same Procedure Performed Cystoscopy, bladder / prostate cauterization Surgeon Raza Caballero MD Anesthesia MAC and Local Description of Procedure Patient is brought to the operative suite was prepped draped in routine sterile fashion while in dorsal lithotomy position. 2% xylocaine jelly was introduced intraurethrally and systemic sedation is administered per the anesthesia department. Cystoscopy was undertaken first with a 19 F rigid cystoscope and then a 24F resectoscope. He has no urethral stricture but marked lateral lobe hyperplasia of the prostate. He has a somewhat high median bar without audi median lobe. Bladder shows dense trabeculation. There was some catheter cystitis in the posterior bladder wall. There is no sizable clot in his bladder as had been identified on CT scan in the recent past at an outside facility. There was ongoing oozing from the lateral lobes of his prostate. Using a rollerball I cauterized that in the area in the posterior bladder wall likely resulting from catheter cystitis. There was no additional areas of hyperemia in the bladder were areas of audi neoplasm. Ureteral orifices were in a normal position bilaterally. The resectoscope was removed and a [address] catheter was placed to continuous irrigation Urine Output 3,700 Drains Yes Packing No Pathology None sent Complications No immediate complications Condition Stable Disposition PACU
[2024-03-21] MEDS: LACTATED RINGERS 1,000 ML 30 ML IV CONT (14:31)
--- NOTE | 2024-03-21 15:15 | PC.NURSE ---
Patient returned from OR per bed.
[2024-03-21] MEDS: TAMSULOSIN HCL 0.4 MG CAPSULE PO (15:19)
[2024-03-21] MEDS: ASCORBIC ACID 500 MG TABLET PO (15:19)
[2024-03-21] MEDS: PANTOPRAZOLE 40 MG TABLET PO (15:19)
[2024-03-21] MEDS: SITagliptin PHOSPHATE 100 MG TABLET PO (15:19)
[2024-03-21 17:23] LABS: Glucose Point of Care 166 mg/dl (65-105)
[2024-03-21] MEDS: CARBIDOPA/LEVODOPA 25/100 MG TABLET 1 TABLET PO ×2 (17:40→20:05)
[2024-03-21] MEDS: MAGNESIUM OXIDE 400 MG TABLET PO (17:40)
[2024-03-21] MEDS: amLODIPine BESYLATE 10 MG TABLET PO (20:05)
[2024-03-21] MEDS: ATORVASTATIN 40 MG TABLET PO (20:05)
[2024-03-21] MEDS: PRIMIDONE 25 MG TABLET PO (20:05)
[2024-03-21 20:29] LABS: Glucose Point of Care 256 mg/dl (65-105)
[2024-03-22] VITALS (7 sets, daily range): BP systolic 117–149; BP diastolic 59–72; PULSE 68–74; RESP 16–20; TEMP 36.1–36.9; O2SAT 99–100
[2024-03-22] MEDS: AMPICILLIN 1 GM/NS 50 ML 1 GM/50 ML BAG IVPB ×4 (00:58→20:24)
[2024-03-22 06:19] LABS: Hematocrit 27.7 % (42.0-52.0); Hemoglobin 9.5 g/dL (14.0-18.0); Mean Corpuscular HGB Conc 34.3 g/dl (32-36); Mean Corpuscular Hemoglobin 32.4 pg (26-34); Mean Corpuscular Volume 94.5 fl (80-100); Mean Platelet Volume 9.5 fl (7.4-10.4); Platelet Count Result 184 k/mm3 (150-375); Red Blood Count 2.93 M/mm3 (4.6-6.20); Red Cell Distribution Width 13.5 % (11.5-14.5); White Blood Count 7.4 K/mm3 (4.5-10.0)
[2024-03-22 06:39] LABS: Anion Gap 7 mmol/L (4-12); Blood Urea Nitrogen 21 mg/dL (9-20); Calcium 8.5 mg/dL (8.4-10.2); Carbon Dioxide 28 mmol/L (22-30); Chloride 97 mmol/L (98-107); Estimated CRCL calculation 32 ml/min; Estimated Glomerular Filt Rate 48; Glucose 227 mg/dL (65-110); Magnesium 1.9 mg/dL (1.6-2.3); Potassium 4.5 mmol/L (3.4-5.0); Sodium 132 mmol/L (137-145)
--- NOTE | 2024-03-22 07:14 | WPDUROPN2 ---
Progress Note: A&P Assessment and Plan (1) Anemia: Qualifiers: Anemia type: other cause Other causes of anemia: acute posthemorrhagic Qualified Code(s): D62 - Acute posthemorrhagic anemia Code(s): D64.9 - Anemia, unspecified Status: Acute (2) Hematuria: Qualifiers: Hematuria type: gross Qualified Code(s): R31.0 - Gross hematuria Code(s): R31.9 - Hematuria, unspecified Status: Acute Assessment and Plan: Hematuria d/t BPH -> urine clear today. Will stop CBI. Catheter out and discharge Monday if urine remains clear off CBI. Subjective Subjective Date/Time Seen: 03/22/24 07:14 Interval history: Comfortable, no complaints Urine clear Review of Systems Cardiovascular: Cardiovascular: Denies chest pain, Denies lightheadedness, Denies palpitations and Denies dyspnea Respiratory: Respiratory: Denies dyspnea Gastrointestinal: Gastrointestinal: Denies diarrhea, Denies nausea and Denies vomiting Genitourinary: Genitourinary: Denies hematuria and Denies dysuria Endocrine: Endocrine: Denies palpitations Exam Const: General: no acute distress Resp: Effort & Inspection: normal respiratory effort GI: Inspection: non-distended GI Palp: No abdominal tenderness and No Guarding due to palpation present (GI) Auscultation: normal bowel sounds Objective Data Vital Signs Vital Signs: Vital Signs - 24 hr 03/21/24 08:24 03/21/24 13:00 03/21/24 08:04 Temperature 98.6 F Pulse Rate 74 66 Respiratory Rate 14 Blood Pressure 136/64 Pulse Oximetry 100 Oxygen Delivery Room Air Room Air Oxygen Flow Rate 03/21/24 12:05 03/21/24 14:31 03/21/24 14:45 Temperature 97.4 F L Pulse Rate 71 74 67 Respiratory Rate 23 H 14 Blood Pressure 151/90 H 161/72 H Pulse Oximetry 100 100 Oxygen Delivery Simple Face Mask Simple Face Mask Oxygen Flow Rate 8 8 03/21/24 15:00 03/21/24 15:23 03/21/24 15:36 Temperature 97.9 F 98.1 F Pulse Rate 72 67 68 Respiratory Rate 16 19 20 Blood Pressure 146/65 H 135/65 148/81 H Pulse Oximetry 98 98 100 Oxygen Delivery Room Air Oxygen Flow Rate 03/21/24 16:04 03/21/24 17:24 03/21/24 20:00 Temperature 98.8 F Pulse Rate 75 81 Respiratory Rate 18 Blood Pressure 143/67 H Pulse Oximetry 100 Oxygen Delivery Room Air Oxygen Flow Rate 03/21/24 21:54 03/21/24 20:00 03/22/24 00:00 Temperature 97.7 F Pulse Rate 72 76 73 Respiratory Rate 20 Blood Pressure 137/60 Pulse Oximetry 100 Oxygen Delivery Oxygen Flow Rate 03/22/24 04:00 03/22/24 06:37 Temperature 97.4 F L Pulse Rate 73 74 Respiratory Rate 16 Blood Pressure 149/72 H Pulse Oximetry 99 Oxygen Delivery Oxygen Flow Rate Intake/Output Intake/Output: Intake & Output 03/19/24 03/20/24 03/21/24 03/22/24 23:59 23:59 23:59 23:59 Intake Total 290 1740 800 Output Total 9400 Balance 290 -7660 800 Meds/Results Medications: Active Medications Generic Name Dose Route Start Last Admin Trade Name Freq PRN Reason Stop Dose Admin Albuterol 2 puff 03/20/24 18:40 Albuterol Sulfate (*Sp) Aerosol 1 Puff INHALATION Q4HRT PRN SOB/WHEEZING Amlodipine Besylate 10 mg 03/20/24 21:00 03/21/24 20:05 Amlodipine Besylate 10 Mg Tablet PO 10 mg HS PETE Administration Ascorbic Acid 500 mg 03/21/24 09:00 03/21/24 15:19 Ascorbic Acid 500 Mg Tablet PO 500 mg DAILY PETE Administration Atorvastatin Calcium 40 mg 03/21/24 21:00 03/21/24 20:05 Atorvastatin 40 Mg Tablet PO 40 mg HS PETE Administration Carbidopa/Levodopa 1 tablet 03/21/24 17:00 03/21/24 20:05 Carbidopa/Levodopa 25/100 Mg Tablet PO 1 tablet TID@0900,1700,2100 PETE Administration Dextrose 12.5 gm 03/20/24 18:15 Dextrose 50% 25 Gm/50 Ml Syringe IV PUSH PRN PRN Hypoglycemia Protocol Glucagon 1 mg 03/20/24 18:15 Glucagon For Inj 1 Mg Vial IM PRN PRN Hyp
--- NOTE | 2024-03-22 07:55 | WPDANESPN ---
Anes - Prog Note Post-Op Date/Time: 03/22/24 07:55 Vital Signs: Last Vital Signs Temp 36.3 C L 03/22/24 06:37 Pulse 74 03/22/24 06:37 Resp 16 03/22/24 06:37 BP 149/72 H 03/22/24 06:37 Pulse Ox 99 03/22/24 06:37 O2 Del Method Room Air 03/21/24 20:00 O2 Flow Rate 8 03/21/24 14:45 Pain Score (VAS): 0 I/O: Intake & Output 03/21/24 03/21/24 03/22/24 15:59 23:59 07:59 Intake Total 950 490 800 Output Total 5500 200 Balance -4550 290 800 Laboratory Tests 03/22/24 05:47 03/22/24 05:47 03/21/24 03/21/24 03/21/24 08:29 12:23 13:11 WBC RBC Hgb Hct MCV MCH MCHC RDW Plt Count MPV Sodium Potassium Chloride Carbon Dioxide Anion Gap BUN Creatinine Estim Creat Clear Calc Estimated GFR Glucose POC Capillary Glucose 136 H 127 H 146 H Calcium Magnesium 03/21/24 03/21/24 03/22/24 17:20 20:09 05:47 WBC 7.4 RBC 2.93 L Hgb 9.5 L Hct 27.7 L MCV 94.5 MCH 32.4 MCHC 34.3 RDW 13.5 Plt Count 184 MPV 9.5 Sodium 132 L Potassium 4.5 Chloride 97 L Carbon Dioxide 28 Anion Gap 7 BUN 21 H Creatinine 1.40 H Estim Creat Clear Calc 32 Estimated GFR 48 L Glucose 227 H POC Capillary Glucose 166 H 256 H Calcium 8.5 Magnesium 1.9 Patient Feedback: Patient satisfied with anesthetic care.
[2024-03-22] MEDS: TAMSULOSIN HCL 0.4 MG CAPSULE PO (08:04)
[2024-03-22] MEDS: SITagliptin PHOSPHATE 100 MG TABLET PO (08:04)
[2024-03-22] MEDS: ASCORBIC ACID 500 MG TABLET PO (08:04)
[2024-03-22] MEDS: levETIRAcetam 250 MG TABLET 750 MG PO ×2 (08:04→20:24)
[2024-03-22] MEDS: CARBIDOPA/LEVODOPA 25/100 MG TABLET 1 TABLET PO ×3 (08:04→20:24)
[2024-03-22] MEDS: SERTRALINE HCL 50 MG TABLET 150 MG PO (08:04)
[2024-03-22] MEDS: PANTOPRAZOLE 40 MG TABLET PO (08:04)
[2024-03-22 08:45] LABS: Glucose Point of Care 201 mg/dl (65-105)
[2024-03-22] MEDS: INSULIN ASPART (*BKC) 100 UNITS/ML SUB-Q ×4 (09:06→21:34)
[2024-03-22 12:20] LABS: Glucose Point of Care 282 mg/dl (65-105)
--- NOTE | 2024-03-22 14:28 | WPDPN ---
Progress Note: A&P Assessment and Plan (1) Anemia: Qualifiers: Anemia type: other cause Other causes of anemia: acute posthemorrhagic Qualified Code(s): D62 - Acute posthemorrhagic anemia Code(s): D64.9 - Anemia, unspecified Status: Acute (2) Hematuria: Qualifiers: Hematuria type: gross Qualified Code(s): R31.0 - Gross hematuria Code(s): R31.9 - Hematuria, unspecified Status: Acute (3) Encounter for screening for malignant neoplasm of prostate: Code(s): Z12.5 - Encounter for screening for malignant neoplasm of prostate Status: Acute Plan patient is an elderly man poor historian, and blind, with hematuria, found to have a blood clot in his bladder, was seen by his urologist patient will have cystoscopy, no clot was found in the bladder as described in the Ct scan, however there was bleeding from prostate which was cauterized, today patient was seen by his urologist, CBI is stopped, will monitor once urine is clear will discharge patient home. patient is clinically stable, will monitor. will have PT/OT evaluate the patient. Subjective Date/time seen: 03/22/24 14:28 Interval history: Hematuria H&P-CYB-Xpjotxhcl: 88 y/o M presents here with hematuria with PMH of Parkinson's, seizures, hyperlipidemia, hypertension, CVA, COPD, gastric ulcer, BPH, and diabetes. The patient initially presented to [facility] for further evaluation of hematuria that started on 03/16 or 03/17. Patient was then admitted on 03/17. Patient had recurrence of hematuria yesterday and was started on CBI shortly thereafter. Hematuria has resolved with CBI. However CT at OSH was concerning for hemorrhage/large clot in the bladder. Ada PLUMMER (Urology) reviewed the imaging and recommended patient be transferred for cystoscopy tomorrow (03/21). While admitted, patient was started on Rocephin on 03/18. Initial urine culture was contaminated, OSH obtaining another sample for culture however they noted this may be difficult due to CBI. Per review of OSH labs, since admission hemoglobin has dropped from 14.8 -> 8.7. Plavix has been held. Patient is currently reporting chills. Denying dizziness, abdominal pain, or worsening fatigue. patient is an elderly man poor historian, and blind, with hematuria, found to have a blood clot in his bladder, was seen by his urologist patient will have cystoscopy, no clot was found in the bladder as described in the Ct scan, however there was bleeding from prostate which was cauterized, today patient was seen by his urologist, CBI is stopped, will monitor once urine is clear will discharge patient home. patient is clinically stable, will monitor. will have PT/OT evaluate the patient. Review of Systems Review of Systems: All systems reviewed & are unremarkable except as noted in HPI and below Exam Narrative: Elderly frail Patient is comfortable, NAD HEENT: eyes are clear and none icteric LUNGS:CTA HEART: RR S1S2 ABD: BS+, Soft and nontender Lower extremities: no edema SKIN: nonjaundiced Neuro: grossly intact. Objective Data Vital Signs Vital Signs: Vital Signs - 24 hr 03/21/24 14:31 03/21/24 14:45 03/21/24 15:00 Temperature 36.3 C L Pulse Rate 74 67 72 Respiratory Rate 23 H 14 16 Blood Pressure 151/90 H 161/72 H 146/65 H Pulse Oximetry 100 100 98 Oxygen Delivery Simple Face Mask Simple Face Mask Room Air Oxygen Flow Rate 8 8 03/21/24 15:23 03/21/24 15:36 03/21/24 16:04 Temperature 36.6 C 36.7 C Pulse Rate 67 68 75 Respiratory Rate 19 20 Blood Pressure 135/65 148/81 H Pulse Oximetry 98 100 Oxygen Delivery Oxygen Flow Rate 03/21/24 17:24 03/21/24 20:00 03/21/24 21:54 Temperature 37.1 C 36.5 C Pulse Rate 81 72 Respiratory Rate 18 20 Blood Pressure 143/67 H 137/60 Pulse Oximetry 100 100 Oxygen Delivery Room Air Oxygen Flow Rate 03/21/24 20:00 03/22/24 00:00 03/22/24 04:00 Temp
--- NOTE | 2024-03-22 15:59 | PCPTNOTE ---
On 03/22/24, the student, [Jo Sloan], provided care and completed [facility] documentation on this patient. I have reviewed the student's documentation and agree with the findings.
[2024-03-22 17:10] LABS: Glucose Point of Care 330 mg/dl (65-105)
[2024-03-22] MEDS: MAGNESIUM OXIDE 400 MG TABLET PO (17:22)
[2024-03-22] MEDS: PRIMIDONE 25 MG TABLET PO (20:24)
[2024-03-22] MEDS: amLODIPine BESYLATE 10 MG TABLET PO (20:24)
[2024-03-22] MEDS: ATORVASTATIN 40 MG TABLET PO (20:24)
[2024-03-23] MEDS: AMPICILLIN 1 GM/NS 50 ML 1 GM/50 ML BAG IVPB ×4 (01:39→20:40)
[2024-03-23 04:23] LABS: Glucose Point of Care 314 mg/dl (65-105)
[2024-03-23 06:00] VITALS: BP 137/72; PULSE 71; RESP 20; TEMP 36.5; O2SAT 100
[2024-03-23 06:05] LABS: Hematocrit 25.9 % (42.0-52.0); Hemoglobin 8.9 g/dL (14.0-18.0); Mean Corpuscular HGB Conc 34.4 g/dl (32-36); Mean Corpuscular Hemoglobin 32.2 pg (26-34); Mean Corpuscular Volume 93.8 fl (80-100); Mean Platelet Volume 9.5 fl (7.4-10.4); Platelet Count Result 178 k/mm3 (150-375); Red Blood Count 2.76 M/mm3 (4.6-6.20); Red Cell Distribution Width 13.7 % (11.5-14.5); White Blood Count 5.9 K/mm3 (4.5-10.0)
[2024-03-23 06:14] LABS: Anion Gap 5 mmol/L (4-12); Blood Urea Nitrogen 21 mg/dL (9-20); Calcium 8.4 mg/dL (8.4-10.2); Carbon Dioxide 28 mmol/L (22-30); Chloride 101 mmol/L (98-107); Estimated CRCL calculation 28 ml/min; Estimated Glomerular Filt Rate 41; Glucose 223 mg/dL (65-110); Potassium 4.2 mmol/L (3.4-5.0); Sodium 134 mmol/L (137-145)
--- NOTE | 2024-03-23 06:55 | ECG_ITS ---
Test Date: 2024-03-23 07:03:49 Measurements Intervals [place] Rate: 66 P: 3 TN: 204 QRS: 2 QRSD: 118 T: 58 QT: 418 QTc: 441 Interpretive Statements SINUS RHYTHM MODERATE INTRAVENTRICULAR CONDUCTION DELAY [110+ ms QRS DURATION] No previous ECG available for comparison Electronically Signed On 03-23-2024 10:36:34 CDT by Violette Bowie M.D.
[2024-03-23 08:49] LABS: Glucose Point of Care 183 mg/dl (65-105)
[2024-03-23] MEDS: PANTOPRAZOLE 40 MG TABLET PO (08:54)
[2024-03-23] MEDS: SERTRALINE HCL 50 MG TABLET 150 MG PO (08:54)
[2024-03-23] MEDS: SITagliptin PHOSPHATE 100 MG TABLET PO (08:54)
[2024-03-23] MEDS: levETIRAcetam 250 MG TABLET 750 MG PO ×2 (08:54→20:40)
[2024-03-23] MEDS: ASCORBIC ACID 500 MG TABLET PO (08:54)
[2024-03-23] MEDS: TAMSULOSIN HCL 0.4 MG CAPSULE PO (08:54)
[2024-03-23] MEDS: CARBIDOPA/LEVODOPA 25/100 MG TABLET 1 TABLET PO ×3 (08:54→20:40)
--- NOTE | 2024-03-23 10:42 | PC.NURSE ---
RN gave update to jonh via telephone on patient status.
[2024-03-23 12:27] LABS: Glucose Point of Care 291 mg/dl (65-105)
[2024-03-23] MEDS: INSULIN ASPART (*BKC) 100 UNITS/ML SUB-Q ×2 (12:35→17:19)
--- NOTE | 2024-03-23 12:37 | WPDPN ---
Progress Note: A&P Assessment and Plan (1) Anemia: Qualifiers: Anemia type: other cause Other causes of anemia: acute posthemorrhagic Qualified Code(s): D62 - Acute posthemorrhagic anemia Code(s): D64.9 - Anemia, unspecified Status: Acute (2) Hematuria: Qualifiers: Hematuria type: gross Qualified Code(s): R31.0 - Gross hematuria Code(s): R31.9 - Hematuria, unspecified Status: Acute (3) Encounter for screening for malignant neoplasm of prostate: Code(s): Z12.5 - Encounter for screening for malignant neoplasm of prostate Status: Acute Plan patient is an elderly man poor historian, and blind, with hematuria, was found to have a blood clot in his bladder, was seen by his urologist patient had cystoscopy, no clot was found in the bladder as described in the Ct scan, however there was bleeding from prostate which was cauterized, on 03/22 patient was seen by his urologist, CBI was stopped, patient urine is clear, plan was to discharge patient today however patient does not wish return home, wish to go to SNF, critical care unit nurse with working with the patient. patient is clinically stable, will monitor. will have PT/OT evaluate the patient. Subjective Date/time seen: 03/23/24 12:37 Interval history: Hematuria H&J-GKV-Oiislgflr: 88 y/o M presents here with hematuria with PMH of Parkinson's, seizures, hyperlipidemia, hypertension, CVA, COPD, gastric ulcer, BPH, and diabetes. The patient initially presented to [facility] for further evaluation of hematuria that started on 03/16 or 03/17. Patient was then admitted on 03/17. Patient had recurrence of hematuria yesterday and was started on CBI shortly thereafter. Hematuria has resolved with CBI. However CT at OSH was concerning for hemorrhage/large clot in the bladder. Ada PLUMMER (Urology) reviewed the imaging and recommended patient be transferred for cystoscopy tomorrow (03/21). While admitted, patient was started on Rocephin on 03/18. Initial urine culture was contaminated, OSH obtaining another sample for culture however they noted this may be difficult due to CBI. Per review of OSH labs, since admission hemoglobin has dropped from 14.8 -> 8.7. Plavix has been held. Patient is currently reporting chills. Denying dizziness, abdominal pain, or worsening fatigue. patient is an elderly man poor historian, and blind, with hematuria, was found to have a blood clot in his bladder, was seen by his urologist patient had cystoscopy, no clot was found in the bladder as described in the Ct scan, however there was bleeding from prostate which was cauterized, on 03/22 patient was seen by his urologist, CBI was stopped, patient urine is clear, plan was to discharge patient today however patient does not wish return home, wish to go to SNF, critical care unit nurse with working with the patient. patient is clinically stable, will monitor. will have PT/OT evaluate the patient. Review of Systems Review of Systems: All systems reviewed & are unremarkable except as noted in HPI and below Exam Narrative: Elderly frail Patient is comfortable, NAD HEENT: eyes are clear and none icteric LUNGS:CTA HEART: RR S1S2 ABD: BS+, Soft and nontender Lower extremities: no edema SKIN: nonjaundiced Neuro: grossly intact. Objective Data Vital Signs Vital Signs: Vital Signs - 24 hr 03/22/24 15:11 03/22/24 14:00 03/22/24 21:34 Temperature 36.1 C L 36.9 C Pulse Rate 72 68 Respiratory Rate 18 20 Blood Pressure 125/59 L 117/61 Pulse Oximetry 100 100 Oxygen Delivery Room Air 03/22/24 20:00 03/23/24 06:00 03/23/24 08:50 Temperature 36.5 C Pulse Rate 68 71 Respiratory Rate 20 20 Blood Pressure 137/72 Pulse Oximetry 100 100 Oxygen Delivery Room Air Room Air Intake/Output Intake/Output: Intake & Output 03/20/24 03/21/24 03/22/24 03/23/24 23:59 23:59 23:59 23:59 Intake Total 290 4650 0520 890 Out
[2024-03-23] MEDS: MAGNESIUM OXIDE 400 MG TABLET PO (17:01)
[2024-03-23 17:18] LABS: Glucose Point of Care 235 mg/dl (65-105)
[2024-03-23 18:52] VITALS: BP 99/54; PULSE 70; RESP 18; TEMP 36.2; O2SAT 99
[2024-03-23 20:00] VITALS: BP 122/56; PULSE 64; RESP 18; TEMP 36.5; O2SAT 100
[2024-03-23] MEDS: ATORVASTATIN 40 MG TABLET PO (20:40)
[2024-03-23] MEDS: PRIMIDONE 25 MG TABLET PO (20:40)
[2024-03-23] MEDS: amLODIPine BESYLATE 10 MG TABLET PO (20:40)
[2024-03-23 21:07] LABS: Glucose Point of Care 234 mg/dl (65-105)
[2024-03-24] MEDS: AMPICILLIN 1 GM/NS 50 ML 1 GM/50 ML BAG IVPB ×4 (02:08→20:34)
[2024-03-24 04:00] VITALS: BP 144/72; PULSE 63; RESP 16; TEMP 36.6; O2SAT 100
[2024-03-24 06:00] LABS: Hemoglobin 9.4 g/dL (14.0-18.0); Mean Corpuscular HGB Conc 34.8 g/dl (32-36); Mean Corpuscular Hemoglobin 32.6 pg (26-34); Mean Corpuscular Volume 93.8 fl (80-100); Mean Platelet Volume 9.5 fl (7.4-10.4); Platelet Count Result 197 k/mm3 (150-375); Red Blood Count 2.88 M/mm3 (4.6-6.20); Red Cell Distribution Width 13.5 % (11.5-14.5)
[2024-03-24 06:10] LABS: Anion Gap 7 mmol/L (4-12); Blood Urea Nitrogen 27 mg/dL (9-20); Calcium 8.4 mg/dL (8.4-10.2); Carbon Dioxide 28 mmol/L (22-30); Chloride 98 mmol/L (98-107); Estimated CRCL calculation 32 ml/min; Estimated Glomerular Filt Rate 48; Glucose 205 mg/dL (65-110); Potassium 4.4 mmol/L (3.4-5.0); Sodium 133 mmol/L (137-145)
[2024-03-24 08:11] LABS: Glucose Point of Care 246 mg/dl (65-105)
[2024-03-24] MEDS: SITagliptin PHOSPHATE 100 MG TABLET PO (08:53)
[2024-03-24] MEDS: ASCORBIC ACID 500 MG TABLET PO (08:53)
[2024-03-24] MEDS: CARBIDOPA/LEVODOPA 25/100 MG TABLET 1 TABLET PO ×3 (08:53→20:35)
[2024-03-24] MEDS: PANTOPRAZOLE 40 MG TABLET PO (08:53)
[2024-03-24] MEDS: levETIRAcetam 250 MG TABLET 750 MG PO ×2 (08:53→20:35)
[2024-03-24] MEDS: TAMSULOSIN HCL 0.4 MG CAPSULE PO (08:53)
[2024-03-24] MEDS: SERTRALINE HCL 50 MG TABLET 150 MG PO (08:53)
[2024-03-24] MEDS: INSULIN ASPART (*BKC) 100 UNITS/ML SUB-Q ×3 (09:16→17:17)
[2024-03-24 12:48] LABS: Glucose Point of Care 321 mg/dl (65-105)
[2024-03-24] MEDS: ACETAMINOPHEN 325 MG TABLET 650 MG PO (13:08)
[2024-03-24 14:00] VITALS: BP 117/63; PULSE 67; RESP 18; TEMP 36.6; O2SAT 99
--- NOTE | 2024-03-24 15:10 | WPDPN ---
Progress Note: A&P Assessment and Plan (1) Anemia: Qualifiers: Anemia type: other cause Other causes of anemia: acute posthemorrhagic Qualified Code(s): D62 - Acute posthemorrhagic anemia Code(s): D64.9 - Anemia, unspecified Status: Acute (2) Hematuria: Qualifiers: Hematuria type: gross Qualified Code(s): R31.0 - Gross hematuria Code(s): R31.9 - Hematuria, unspecified Status: Acute (3) Encounter for screening for malignant neoplasm of prostate: Code(s): Z12.5 - Encounter for screening for malignant neoplasm of prostate Status: Acute Plan patient is an elderly man poor historian, and blind, with hematuria, was found to have a blood clot in his bladder, was seen by his urologist patient had cystoscopy, no clot was found in the bladder as described in the Ct scan, however there was bleeding from prostate which was cauterized, on 03/22 patient was seen by his urologist, CBI was stopped, patient urine is clear, plan was to discharge patient, on 03/23 however patient does not wish return home, wish to go to SNF, critical care unit manager with working with the patient. patient is clinically stable, will monitor. will have PT/OT evaluate the patient. Subjective Date/time seen: 03/24/24 15:10 Interval history: Hematuria H&T-SRF-Nbbzashcz: 88 y/o M presents here with hematuria with PMH of Parkinson's, seizures, hyperlipidemia, hypertension, CVA, COPD, gastric ulcer, BPH, and diabetes. The patient initially presented to [facility] for further evaluation of hematuria that started on 03/16 or 03/17. Patient was then admitted on 03/17. Patient had recurrence of hematuria yesterday and was started on CBI shortly thereafter. Hematuria has resolved with CBI. However CT at OSH was concerning for hemorrhage/large clot in the bladder. Ada PLUMMER (Urology) reviewed the imaging and recommended patient be transferred for cystoscopy tomorrow (03/21). While admitted, patient was started on Rocephin on 03/18. Initial urine culture was contaminated, OSH obtaining another sample for culture however they noted this may be difficult due to CBI. Per review of OSH labs, since admission hemoglobin has dropped from 14.8 -> 8.7. Plavix has been held. Patient is currently reporting chills. Denying dizziness, abdominal pain, or worsening fatigue. patient is an elderly man poor historian, and blind, with hematuria, was found to have a blood clot in his bladder, was seen by his urologist patient had cystoscopy, no clot was found in the bladder as described in the Ct scan, however there was bleeding from prostate which was cauterized, on 03/22 patient was seen by his urologist, CBI was stopped, patient urine is clear, plan was to discharge patient, on 03/23 however patient does not wish return home, wish to go to SNF, critical care unit manager with working with the patient. patient is clinically stable, will monitor. will have PT/OT evaluate the patient. Review of Systems Review of Systems: All systems reviewed & are unremarkable except as noted in HPI and below Exam Narrative: Elderly frail Patient is comfortable, NAD HEENT: eyes are clear and none icteric LUNGS:CTA HEART: RR S1S2 ABD: BS+, Soft and nontender Lower extremities: no edema SKIN: nonjaundiced Neuro: grossly intact. Objective Data Vital Signs Vital Signs: Vital Signs - 24 hr 03/23/24 18:52 03/23/24 20:00 03/23/24 20:00 Temperature 36.2 C L 36.5 C Pulse Rate 70 64 64 Respiratory Rate 18 18 18 Blood Pressure 99/54 L 122/56 L Pulse Oximetry 99 100 100 Oxygen Delivery Room Air 03/24/24 04:00 03/24/24 08:00 03/24/24 14:00 Temperature 36.6 C 36.6 C Pulse Rate 63 67 Respiratory Rate 16 18 Blood Pressure 144/72 H 117/63 Pulse Oximetry 100 99 Oxygen Delivery Room Air Intake/Output Intake/Output: Intake & Output 03/21/24 03/22/24 03/23/24 03/24/24 23:59 23:59 23:59 23:59 Intake Total
[2024-03-24 16:50] LABS: Glucose Point of Care 266 mg/dl (65-105)
[2024-03-24] MEDS: MAGNESIUM OXIDE 400 MG TABLET PO (17:16)
[2024-03-24 20:00] VITALS: PULSE 62; RESP 16; O2SAT 100
[2024-03-24 20:14] VITALS: BP 143/68; PULSE 62; RESP 16; TEMP 36.6; O2SAT 100
[2024-03-24] MEDS: amLODIPine BESYLATE 10 MG TABLET PO (20:35)
[2024-03-24] MEDS: PRIMIDONE 25 MG TABLET PO (20:35)
[2024-03-24] MEDS: ATORVASTATIN 40 MG TABLET PO (20:35)
[2024-03-24 22:55] LABS: Glucose Point of Care 190 mg/dl (65-105)
[2024-03-25] MEDS: AMPICILLIN 1 GM/NS 50 ML 1 GM/50 ML BAG IVPB ×2 (01:19→08:27)
[2024-03-25 04:28] VITALS: BP 141/61; PULSE 65; RESP 16; TEMP 36.7; O2SAT 100
[2024-03-25 07:04] LABS: Hematocrit 26.9 % (42.0-52.0); Hemoglobin 9.2 g/dL (14.0-18.0); Mean Corpuscular HGB Conc 34.2 g/dl (32-36); Mean Corpuscular Hemoglobin 32.3 pg (26-34); Mean Corpuscular Volume 94.4 fl (80-100); Mean Platelet Volume 9.6 fl (7.4-10.4); Platelet Count Result 205 k/mm3 (150-375); Red Blood Count 2.85 M/mm3 (4.6-6.20); Red Cell Distribution Width 13.5 % (11.5-14.5); White Blood Count 5.7 K/mm3 (4.5-10.0)
[2024-03-25 07:25] LABS: Anion Gap 7 mmol/L (4-12); Blood Urea Nitrogen 21 mg/dL (9-20); Calcium 8.5 mg/dL (8.4-10.2); Carbon Dioxide 26 mmol/L (22-30); Chloride 100 mmol/L (98-107); Estimated CRCL calculation 30 ml/min; Estimated Glomerular Filt Rate 44; Glucose 238 mg/dL (65-110); Potassium 4.3 mmol/L (3.4-5.0); Sodium 133 mmol/L (137-145)
[2024-03-25 08:18] LABS: Glucose Point of Care 291 mg/dl (65-105)
[2024-03-25] MEDS: SITagliptin PHOSPHATE 100 MG TABLET PO (08:27)
[2024-03-25] MEDS: SERTRALINE HCL 50 MG TABLET 150 MG PO (08:27)
[2024-03-25] MEDS: CARBIDOPA/LEVODOPA 25/100 MG TABLET 1 TABLET PO (08:27)
[2024-03-25] MEDS: levETIRAcetam 250 MG TABLET 750 MG PO (08:27)
[2024-03-25] MEDS: TAMSULOSIN HCL 0.4 MG CAPSULE PO (08:27)
[2024-03-25] MEDS: ASCORBIC ACID 500 MG TABLET PO (08:27)
[2024-03-25] MEDS: PANTOPRAZOLE 40 MG TABLET PO (08:27)
[2024-03-25] MEDS: INSULIN ASPART (*BKC) 100 UNITS/ML SUB-Q ×2 (08:28→12:45)
[2024-03-25 12:18] LABS: Glucose Point of Care 271 mg/dl (65-105)
--- NOTE | 2024-03-25 13:31 | PM.DS ---
DS: Admitting Diagnosis Discharge Date 03/24/2024 Admitting Diagnosis hematuria DS: Discharge Diagnosis Discharge Diagnosis (1) Hematuria: Qualifiers: Hematuria type: gross Qualified Code(s): R31.0 - Gross hematuria Code(s): R31.9 - Hematuria, unspecified Status: Acute (2) Anemia: Qualifiers: Anemia type: other cause Other causes of anemia: acute posthemorrhagic Qualified Code(s): D62 - Acute posthemorrhagic anemia Code(s): D64.9 - Anemia, unspecified Status: Acute DS: Summary Hospital Course Hospital Course: patient is an elderly man poor historian, and blind, with hematuria, was found to have a blood clot in his bladder, was seen by his urologist patient had cystoscopy, no clot was found in the bladder as described in the Ct scan, however there was bleeding from prostate which was cauterized, on 03/22 patient was seen by his urologist, CBI was stopped, patient urine is clear, plan was to discharge patient however patient does not wish return home, wish to go to SNF, resident care manager with working with the patient. patient is clinically stable, will monitor. will have PT/OT evaluate the patient. today patient is present in the room and patient has agreed to go home, adult protective service will visit patient home and monitor. Time Spent with Patient Time attestation: Total time spent providing and/or coordinating discharge services: Exam Narrative: Elderly frail Patient is comfortable, NAD HEENT: eyes are clear and none icteric LUNGS:CTA HEART: RR S1S2 ABD: BS+, Soft and nontender Lower extremities: no edema SKIN: nonjaundiced Neuro: grossly intact. DS: Data Data Completed and Pending Labs on day of discharge: Labs from last 24 hours 03/25/24 03/25/24 03/25/24 12:11 08:12 06:33 WBC 5.7 RBC 2.85 L Hgb 9.2 L Hct 26.9 L MCV 94.4 MCH 32.3 MCHC 34.2 RDW 13.5 Plt Count 205 MPV 9.6 Sodium 133 L Potassium 4.3 Chloride 100 Carbon Dioxide 26 Anion Gap 7 BUN 21 H Creatinine 1.50 H Estim Creat Clear Calc 30 Estimated GFR 44 L Glucose 238 H POC Capillary Glucose 271 H 291 H Calcium 8.5 Magnesium 2.0 03/24/24 03/24/24 20:19 16:47 WBC RBC Hgb Hct MCV MCH MCHC RDW Plt Count MPV Sodium Potassium Chloride Carbon Dioxide Anion Gap BUN Creatinine Estim Creat Clear Calc Estimated GFR Glucose POC Capillary Glucose 190 H 266 H Calcium Magnesium Discharge Plan Discharge Attending physician on discharge: Soha Meeks Consulting providers: Raza Caballero; Brittnee Davis; Jethro Rivera; Rachel Mantilla; Violette Bowie Discharging Clinician: Soha Meeks Patient Disposition: Home Health Service Activity: as tolerated Diet: heart healthy Discharge Instructions: patient to follow discharge care instruction form his urologist and follow up as scheduled, patient to follow up with his primary care provider as soon as possible, patient is instructed if any symptoms worsen to go to nearest ER. Per Care Coordination Patient is current with [facility], please resume Home Health at discharge. [phone] RN please fax completed discharge instructions to [phone] Patient Instructions: Antibiotic Form Stand Alone Forms: General Discharge Information Follow-up/Referrals: Anne Diaz APN-C [Primary Care Provider] - Raza Caballero MD [Physician] - Discharge Medications: New albuterol sulfate [Proventil HFA] 90 mcg/actuation Hfa Aerosol Inhaler 2 puff inhalation Q4HRT PRN (Reason: SOB/WHEEZING) Qty: 6.7 0RF sertraline [Zoloft] 50 mg Tablet 150 mg PO DAILY Qty: 30 0RF amoxicillin-pot clavulanate [Augmentin] 500-125 mg tablet 1 tablet PO Q8H Qty: 15 0RF Continued magnesium oxide [MagOx] 400 mg (241.3 mg magnesium) table
== END 2024-03-25 14:18 | disposition home health service (06) ==
PROVIDERS: Student in an Organized Health Care Education/Training Program; Urology; Admitting Provider Family Medicine; PCP Nurse Practitioner Family; Visit Provider Family Medicine
PROC: 0TCB8ZZ Extirpation of Matter from Bladder, Via Natural or Artificial Opening Endoscopic (ICD-10-PCS; CPT 52001; principal; 2024-03-21 13:45)
DX: R31.0 Gross hematuria (principal); D62 Acute posthemorrhagic anemia; N32.89 Other specified disorders of bladder; G20.A1 Parkinson's disease without dyskinesia, without mention of fluctuations; R56.9 Unspecified convulsions; E78.5 Hyperlipidemia, unspecified; I10 Essential (primary) hypertension; J44.9 Chronic obstructive pulmonary disease, unspecified; N40.0 Benign prostatic hyperplasia without lower urinary tract symptoms; I25.10 Atherosclerotic heart disease of native coronary artery without angina pectoris; K21.9 Gastro-esophageal reflux disease without esophagitis; Z87.891 Personal history of nicotine dependence; E11.40 Type 2 diabetes mellitus with diabetic neuropathy, unspecified
CPT/HCPCS: 52214; 36415; 80048; 80053; 82948; 83036; 83735; 85025; 85027; 85610; 85730; 87086; 93005; 94640; 97161; 97165; A9270; G0378; J0290; J0696; J1815; J2405; J2704; J7120

== ENCOUNTER 2024-07-04 12:54 | Inpatient (IN) | payer MEDICARE, SELFPAY ==
[2024-07-04] VITALS (9 sets, daily range): BP systolic 135–149; BP diastolic 57–70; PULSE 66–90; RESP 11–19; TEMP 36.3–36.6; O2SAT 99–100; BMI 23.6
--- NOTE | ~2024-07-04 | XR_ITS ---
EXAMINATION: XR chest 1V DATE: 07/06/2024 09:31 INDICATION: Abdominal pain. Weakness. TECHNIQUE: A single frontal view of the chest was obtained. COMPARISON: CT abdomen and pelvis 07/04/2024 FINDINGS: Skinfolds overlie left chest. A calcified right lung nodule is consistent with old granulom atous disease. No pneumonia, pleural effusion, or pneumothorax. The heart size is normal. IMPRESSION: 1. No acute cardiopulmonary disease. Reviewed, dictated and finalized at location A. TEAM MEMBER
--- NOTE | ~2024-07-04 | CT_ITS ---
EXAMINATION: CT abdomen pelvis wo con DATE: 07/04/2024 14:21 INDICATION: Left lower quadrant abdominal pain. TECHNIQUE: Computed tomography (CT) of the abdomen and pelvis was performed without intravenous contr ast. Automated exposure control and iterative reconstruction technique were employed. The dose-length product was 307.43 mGy-cm. COMPARISON: CT abdomen 04/26/2010 FINDINGS: The visualized portions of the lung bases demonstrate mild atelectasis. A calcified left makayla ng nodule is consistent with old granulomatous disease. No pleural effusion. The heart size is normal . There are coronary artery calcifications. No pericardial effusion. There is a small sliding hiatal hernia. Calcifications in the liver and spleen are consistent with old granulomatous disease. The gal lbladder is normal in size. There are calcifications in the pancreas, consistent with chronic pancrea titis. There is a 19 mm cystic lesion in the tail of the pancreas, consistent with a pseudocyst. The adrenal glands are normal. There are cysts in the kidneys measuring up to 3.4 cm on the left. The pro state is severely enlarged. There is diffuse bladder wall thickening, likely secondary to chronic out let obstruction. There are bilateral inguinal hernias containing fat. There are no dilated loops of b owel. The appendix is normal. There is no free intraperitoneal fluid. Calcified pelvic lymph nodes ar e consistent with old granulomatous disease. There is calcified atherosclerosis of the aorta and many of the other arteries. There is severe stenosis of left common femoral artery. There is a chronic co mpression fracture of T12. There is mild thoracic spondylosis and severe lower lumbar spondylosis. IMPRESSION: 1. Bilateral inguinal hernias containing fat. Reviewed, dictated and finalized at location A. ING INSPECTOR
--- NOTE | ~2024-07-04 | MR_ITS ---
EXAMINATION: MR MRCP wo con/w 3D wo ind pp DATE: 07/06/2024 11:04 INDICATION: Pancreatitis. TECHNIQUE: Magnetic resonance imaging (MRI) of the abdomen was performed without intravenous contrast . Sequences included coronal T2-weighted FS FSE, coronal T2-weighted FSE, axial T1-weighted LAVA, cor onal FS FIESTA, axial dual-echo T1-weighted SPGR, coronal lava-FLEX, sagittal T2-weighted FSE, axial T2-weighted FSE, and axial DWI. Thick-slab T2-weighted FSE images were obtained for magnetic resonanc e cholangiopancreatography (MRCP). Maximum intensity projection 3-D reconstructions of the volumetric data were created by the technologist. COMPARISON: CT abdomen and pelvis 07/04/2024 FINDINGS: ABDOMEN MRI: There are trace pleural effusions. The liver is normal. The gallbladder is normal in siz e. The spleen is normal. There is edema around the pancreas, consistent with acute pancreatitis. Ther e are 3 cystic lesions in the pancreas measuring up to 2.3 cm, consistent with pseudocysts. There is wall thickening of the proximal duodenum, consistent with inflammation. The adrenal glands are normal . There are cysts in the kidneys measuring up to 3.8 cm on the left. There are no dilated loops of martin wel. ABDOMEN MRCP: The common duct is normal and measures 5 mm. No choledocholithiasis. IMPRESSION: 1. Worsened acute on chronic pancreatitis. 2. No choledocholithiasis. Reviewed, dictated and finalized at location A. TAL MEDIA PRODUCER
[2024-07-04 13:28] LABS: Basophils Percent Auto 0.2 % (0.2-1.2); Hematocrit 42.6 % (42.0-52.0); Hemoglobin 13.1 g/dL (14.0-18.0); Immature Granulocyte Absolute 0.14 K/mm3 (0.00-0.031); Immature Granulocyte Percent A 1.2 % (0-0.5); Lymphocytes Absolute Auto 0.47 K/mm3 (0.9-3.2); Mean Corpuscular HGB Conc 30.8 g/dl (32-36); Mean Corpuscular Hemoglobin 25.4 pg (26-34); Mean Corpuscular Volume 82.7 fl (80-100); Mean Platelet Volume 9.1 fl (7.4-10.4); Monocytes Absolute Auto 0.9 K/mm3 (0.1-0.6); Monocytes Percent Auto 7.2 % (2.6-8.5); Neutrophils Absolute Auto 10.4 K/mm3 (1.3-6.7); Neutrophils Percent Auto 87.4 % (45.5-73.1); Platelet Count Result 373 k/mm3 (150-375); Red Blood Count 5.15 M/mm3 (4.6-6.20); Red Cell Distribution Width 15.3 % (11.5-14.5); White Blood Count 11.8 K/mm3 (4.5-10.0)
[2024-07-04 13:55] LABS: Platelet Estimate Adequate (Adequate)
[2024-07-04 13:57] LABS: Crenated RBC 1+
[2024-07-04 13:58] LABS: Lactic Acid Reflex 0.7 mmol/L (0.7-2.0); Schistocytes None Seen
[2024-07-04 13:59] LABS: Alanine Aminotransferase 14 U/L (6-50); Albumin Level 4.6 g/dL (3.5-5.1); Alkaline Phosphatase 144 U/L (38-126); Anion Gap 30 mmol/L (4-12); Aspartate Amino Transferase 34 U/L (17-59); Bilirubin,Total 0.5 mg/dL (0.2-1.3); Blood Urea Nitrogen 38 mg/dL (9-20); Calcium 9.1 mg/dL (8.4-10.2); Carbon Dioxide 7 mmol/L (22-30); Chloride 98 mmol/L (98-107); Estimated CRCL calculation 21 ml/min; Estimated Glomerular Filt Rate 28; Glucose 177 mg/dL (65-110); Lipase 1874 U/L (23-300); Sodium 135 mmol/L (137-145)
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
[2024-07-04] MEDS: SODIUM CHLORIDE 0.9% IV 500 ML 999 ML IV CONT (14:43)
[2024-07-04 15:28] LABS: Add Urine Microscopic? YES; Appearance Urine Cloudy (Clear); Bacteria Urine 4+ /hpf; Bilirubin Urine Negative (Negative); Blood Urine 3+ (Negative); Color Urine Yellow (Yellow); Glucose Urine UA 3+ mg/dL (Negative); Ketones Urine 3+ mg/dL (Negative); Leukocyte Esterase Ur 1+ LEU/UL (Negative); Nitrate Urine Negative (Negative); Protein Urine 2+ mg/dL (Negative); RBC Urine >100 /hpf (0-2); Specific Grav Ur 1.016 (1.001-1.035); Squamous Epithelial Cell Urine Occasional /hpf (Few)
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
[2024-07-04 15:46] LABS: Fractional Inspired Oxygen 21 %; HCO3 VBG 7.5 mEq/l (24.0-30.0); PO2 VBG 60.7 mmHg (35.0-45.0)
[2024-07-04 15:49] LABS: pH VBG 7.081 (7.300-7.400)
[2024-07-04 15:50] LABS: Device ROOM AIR; PCO2 VBG 25.8 mmHg (42.0-48.0)
[2024-07-04 16:16] LABS: Acetaminophen < 10 ug/mL (10-30); Salicylate < 1.0 mg/dL (2-20)
[2024-07-04] MEDS: INSULIN HUMAN REGULAR (*BKC) 100 UNITS/ML IV PUSH (16:27)
[2024-07-04] MEDS: CEFEPIME 1 GM/NS 50 ML 1 GM/50 ML BAG IVPB (17:00)
[2024-07-04] MEDS: INSULIN HUMAN REGULAR (*BKC) 100 UNITS in SODIUM CHLORIDE 0.9% IV 99 ML 7.22 UNITS IV CONT (17:00)
[2024-07-04 17:20] LABS: Anion Gap 29 mmol/L (4-12); Blood Urea Nitrogen 41 mg/dL (9-20); Calcium 9.2 mg/dL (8.4-10.2); Carbon Dioxide 7 mmol/L (22-30); Chloride 99 mmol/L (98-107); Estimated CRCL calculation 21 ml/min; Estimated Glomerular Filt Rate 28; Glucose 138 mg/dL (65-110); Magnesium 2.2 mg/dL (1.6-2.3); Phosphorus 7.5 mg/dL (2.5-4.5); Potassium 4.1 mmol/L (3.4-5.0); Sodium 135 mmol/L (137-145)
[2024-07-04 17:24] LABS: Hemoglobin A1C 7.7 % (<5.7)
[2024-07-04 17:25] LABS: Magnesium 2.2 mg/dL (1.6-2.3)
--- NOTE | 2024-07-04 18:00 | PC.NURSE ---
This patient, Fabien Tanner, was admitted to Intensive Care Unit-7. Patient/family oriented to hospital policies and general routines including ID bracelet, bed and alarms, visiting hours, pain management, procedures, bathroom and other care routines, personal items, smoking policy, room service/diet, and visiting hours. Information on how to activate the Rapid Response Team has been discussed. Patient/Family are encouraged to report perceived risks to care and to ask questions if they do not understand what they are told or what they should do.
[2024-07-04] MEDS: DEXTROSE 50% 25 GM/50 ML SYRINGE IV PUSH (18:16)
[2024-07-04] MEDS: KCL 20 MEQ/D5/0.45% SOD CHL 1,000 ML 150 ML IV CONT (18:16)
[2024-07-04 18:20] LABS: Glucose Point of Care 62 mg/dl (65-105)
[2024-07-04 18:44] LABS: Glucose Point of Care 120 mg/dl (65-105)
[2024-07-04 20:06] LABS: MRSA (PCR) DETECTED (NOT DETECTE)
[2024-07-04 20:11] LABS: Anion Gap 24 mmol/L (4-12); Blood Urea Nitrogen 42 mg/dL (9-20); Carbon Dioxide 8 mmol/L (22-30); Chloride 102 mmol/L (98-107); Estimated CRCL calculation 21 ml/min; Estimated Glomerular Filt Rate 28; Glucose 99 mg/dL (65-110); Potassium 4.1 mmol/L (3.4-5.0); Sodium 134 mmol/L (137-145)
[2024-07-04 20:14] LABS: Glucose Point of Care 109 mg/dl (65-105)
[2024-07-04] MEDS: levETIRAcetam IV 750 MG in DEXTROSE 5% 100 ML 430 MG IVPB (20:21)
[2024-07-04] MEDS: HEPARIN SODIUM 5,000 UNITS/ML VIAL 5000 UNITS SUB-Q (20:31)
[2024-07-04 21:27] LABS: Glucose Point of Care 164 mg/dl (65-105)
[2024-07-04] MEDS: INSULIN HUMAN REGULAR (*BKC) 100 UNITS in SODIUM CHLORIDE 0.9% IV 99 ML 7 UNITS IV CONT (22:00)
[2024-07-04] MEDS: SODIUM CHLORIDE IV CONT (22:20)
[2024-07-04] MEDS: POTASSIUM CHLORIDE IV CONT (22:20)
[2024-07-04] MEDS: [UNRECOGNIZED DRUG - OTHER] IV CONT (22:20)
[2024-07-04 22:51] LABS: Glucose Point of Care 175 mg/dl (65-105)
[2024-07-05] VITALS (21 sets, daily range): BP systolic 134–178; BP diastolic 69–98; PULSE 69–101; RESP 11–18; TEMP 36.3–36.9; O2SAT 97–100; BMI 23.5
[2024-07-05 00:23] LABS: Glucose Point of Care 164 mg/dl (65-105)
[2024-07-05 01:46] LABS: Anion Gap 18 mmol/L (4-12); Blood Urea Nitrogen 42 mg/dL (9-20); Calcium 8.4 mg/dL (8.4-10.2); Carbon Dioxide 11 mmol/L (22-30); Chloride 102 mmol/L (98-107); Estimated CRCL calculation 22 ml/min; Estimated Glomerular Filt Rate 32; Glucose 157 mg/dL (65-110); Potassium 4.3 mmol/L (3.4-5.0); Sodium 131 mmol/L (137-145)
[2024-07-05 02:30] LABS: Glucose Point of Care 172 mg/dl (65-105)
[2024-07-05 03:43] LABS: Glucose Point of Care 186 mg/dl (65-105)
[2024-07-05] MEDS: [UNRECOGNIZED DRUG - OTHER] IV CONT (04:37)
[2024-07-05] MEDS: SODIUM CHLORIDE IV CONT (04:37)
[2024-07-05] MEDS: POTASSIUM CHLORIDE IV CONT (04:37)
[2024-07-05 05:27] LABS: Basophils Percent Auto 0.1 % (0.2-1.2); Hematocrit 34.7 % (42.0-52.0); Hemoglobin 11.4 g/dL (14.0-18.0); Immature Granulocyte Absolute 0.07 K/mm3 (0.00-0.031); Immature Granulocyte Percent A 0.8 % (0-0.5); Lymphocytes Absolute Auto 0.39 K/mm3 (0.9-3.2); Lymphocytes Percent Auto 4.7 % (18.3-44.2); Mean Corpuscular HGB Conc 32.9 g/dl (32-36); Mean Corpuscular Hemoglobin 25.8 pg (26-34); Mean Corpuscular Volume 78.5 fl (80-100); Mean Platelet Volume 8.7 fl (7.4-10.4); Monocytes Absolute Auto 0.7 K/mm3 (0.1-0.6); Monocytes Percent Auto 8.4 % (2.6-8.5); Neutrophils Absolute Auto 7.2 K/mm3 (1.3-6.7); Platelet Count Result 228 k/mm3 (150-375); Red Blood Count 4.42 M/mm3 (4.6-6.20); Red Cell Distribution Width 15.4 % (11.5-14.5); White Blood Count 8.3 K/mm3 (4.5-10.0)
[2024-07-05 05:42] LABS: Alanine Aminotransferase 14 U/L (6-50); Albumin Level 3.6 g/dL (3.5-5.1); Alkaline Phosphatase 104 U/L (38-126); Anion Gap 11 mmol/L (4-12); Aspartate Amino Transferase 24 U/L (17-59); Bilirubin,Total 0.5 mg/dL (0.2-1.3); Blood Urea Nitrogen 41 mg/dL (9-20); Calcium 8.5 mg/dL (8.4-10.2); Carbon Dioxide 18 mmol/L (22-30); Chloride 104 mmol/L (98-107); Estimated CRCL calculation 22 ml/min; Estimated Glomerular Filt Rate 32; Glucose 205 mg/dL (65-110); Lipase 1229 U/L (23-300); Potassium 4.6 mmol/L (3.4-5.0); Sodium 133 mmol/L (137-145)
[2024-07-05 05:44] LABS: Anisocytosis 1+; Burr Cells 1+; Ovalocytes 1+; Platelet Estimate Adequate (Adequate)
[2024-07-05 05:45] LABS: Schistocytes None Seen
[2024-07-05 06:18] LABS: Glucose Point of Care 222 mg/dl (65-105)
[2024-07-05 07:32] LABS: Glucose Point of Care 266 mg/dl (65-105)
[2024-07-05] MEDS: levETIRAcetam IV 750 MG in DEXTROSE 5% 100 ML 430 MG IVPB ×2 (08:36→20:38)
[2024-07-05] MEDS: PANTOPRAZOLE SODIUM IV 40 MG VIAL IV PUSH (08:36)
[2024-07-05] MEDS: HEPARIN SODIUM 5,000 UNITS/ML VIAL 5000 UNITS SUB-Q (08:36)
[2024-07-05 08:46] LABS: Glucose Point of Care 242 mg/dl (65-105)
[2024-07-05] MEDS: INSULIN GLARGINE (*BKC) 100 UNITS/ML 10 UNITS SUB-Q (09:08)
[2024-07-05 09:31] LABS: Glucose Point of Care 275 mg/dl (65-105)
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
[2024-07-05] MEDS: LACTATED RINGERS 1,000 ML 75 ML IV CONT ×2 (09:53→23:43)
[2024-07-05] MEDS: CARBIDOPA/LEVODOPA 25/100 MG TABLET 1 TABLET PO ×3 (09:53→20:39)
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
[2024-07-05 10:10] LABS: Anion Gap 5 mmol/L (4-12); Blood Urea Nitrogen 38 mg/dL (9-20); Calcium 8.4 mg/dL (8.4-10.2); Carbon Dioxide 21 mmol/L (22-30); Chloride 106 mmol/L (98-107); Estimated CRCL calculation 26 ml/min; Estimated Glomerular Filt Rate 38; Glucose 251 mg/dL (65-110); Potassium 4.1 mmol/L (3.4-5.0); Sodium 132 mmol/L (137-145)
--- NOTE | 2024-07-05 11:07 | PCSTNOTE ---
Please refer to the Bedside Swallow Evaluation in the EMR. Please note, silent aspiration cannot be ruled out at bedside. The above pt, admitted with a dx of DKA and nausea and vomiting, was seen for a swallow evaluation at bedside. Medical history includes a CVA and Parkinson's. Re swallowing: pt denied difficulty with swallowing and stated he can chew without dentition. Pt was able to dry swallow on command but struggled slightly felt r/t to dry oral mucosa; he exhibited a clear vocal quality prior to oral trials. Oral mucosa is dry; pt is edentulous and stated he does not have dentures and can masticate solids. Oral peripheral exam revealed lingual and labial structures to be functional; slightly weak. Pt was positioned upright in the bed for an optimal feeding position. He was tested with thin liquids, pudding, applesauce, and a small piece of cracker in controlled amounts; thin liquids were also tested in uncontrolled amounts via a cup and a straw. The oral stages appeared WFL with all trials but the solid trial was masticated very slowly. No oral leakage or pocketing was noted. During the pharyngeal stage, swallow reflex appeared prompt & laryngeal elevation adequate. First trial, questionable laryngeal elevation but eventually improved through trials. No overt s/s of aspiration were exhibited; however, silent aspiration cannot be ruled out at bedside. If any overt s/s of aspiration are observed, not oral intake and refer back to ST for a Modified Barium Swallow. General impression: appears to exhibit functional swallow ability. Recommendation: level 5 minced and moist diet; and thin liquids. Thank you for this referral.
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
[2024-07-05 11:51] LABS: Glucose Point of Care 195 mg/dl (65-105)
[2024-07-05] MEDS: CEFEPIME 0.5 GM in SODIUM CHLORIDE 0.9% IV 50 ML IVPB (12:11)
--- NOTE | 2024-07-05 15:52 | PCCDE ---
~11:45 am Spoke with RN, patient with reduced cognition. Not appropriate for education. N/A. (home) Staff without DM needs. FJ
[2024-07-05 16:00] LABS: Glucose Point of Care 154 mg/dl (65-105)
[2024-07-05] MEDS: hydrALAZINE HCL 20 MG/ML VIAL 10 MG IV PUSH (16:04)
[2024-07-05 18:42] LABS: Anion Gap 10 mmol/L (4-12); Blood Urea Nitrogen 32 mg/dL (9-20); Carbon Dioxide 18 mmol/L (22-30); Chloride 106 mmol/L (98-107); Estimated CRCL calculation 30 ml/min; Estimated Glomerular Filt Rate 44; Glucose 158 mg/dL (65-110); Potassium 4.3 mmol/L (3.4-5.0); Sodium 134 mmol/L (137-145)
[2024-07-05 19:54] LABS: Glucose Point of Care 168 mg/dl (65-105)
[2024-07-05] MEDS: PRIMIDONE 25 MG TABLET PO (20:39)
[2024-07-05] MEDS: amLODIPine BESYLATE 5 MG TABLET PO (20:39)
[2024-07-06] VITALS (17 sets, daily range): BP systolic 135–170; BP diastolic 69–94; PULSE 70–85; RESP 18; TEMP 36.6–36.8; O2SAT 97
[2024-07-06 06:23] LABS: Basophils Percent Auto 0.2 % (0.2-1.2); Eosinophils Percent Auto 0.2 % (0-4.4); Hematocrit 32.9 % (42.0-52.0); Hemoglobin 10.9 g/dL (14.0-18.0); Immature Granulocyte Absolute 0.03 K/mm3 (0.00-0.031); Immature Granulocyte Percent A 0.5 % (0-0.5); Lymphocytes Absolute Auto 0.52 K/mm3 (0.9-3.2); Mean Corpuscular HGB Conc 33.1 g/dl (32-36); Mean Corpuscular Hemoglobin 25.6 pg (26-34); Mean Corpuscular Volume 77.4 fl (80-100); Monocytes Absolute Auto 0.6 K/mm3 (0.1-0.6); Monocytes Percent Auto 8.7 % (2.6-8.5); Neutrophils Absolute Auto 5.3 K/mm3 (1.3-6.7); Neutrophils Percent Auto 82.4 % (45.5-73.1); Platelet Count Result 209 k/mm3 (150-375); Red Blood Count 4.25 M/mm3 (4.6-6.20); Red Cell Distribution Width 15.8 % (11.5-14.5); White Blood Count 6.5 K/mm3 (4.5-10.0)
[2024-07-06 06:32] LABS: Albumin Level 3.2 g/dL (3.5-5.1); Alkaline Phosphatase 104 U/L (38-126); Anion Gap 6 mmol/L (4-12); Aspartate Amino Transferase 19 U/L (17-59); Bilirubin,Total 0.4 mg/dL (0.2-1.3); Blood Urea Nitrogen 25 mg/dL (9-20); Calcium 8.6 mg/dL (8.4-10.2); Carbon Dioxide 21 mmol/L (22-30); Chloride 106 mmol/L (98-107); Estimated CRCL calculation 34 ml/min; Estimated Glomerular Filt Rate 52; Glucose 137 mg/dL (65-110); Lipase 855 U/L (23-300); Potassium 3.7 mmol/L (3.4-5.0); Sodium 133 mmol/L (137-145)
[2024-07-06 06:36] LABS: Alanine Aminotransferase < 6 U/L (6-50)
[2024-07-06 08:17] LABS: Glucose Point of Care 131 mg/dl (65-105)
--- NOTE | 2024-07-06 09:15 | P.PNNP_ITS ---
Progress Note: A&P Assessment and Plan (1) SCARLETT (acute kidney injury): Code(s): N17.9 - Acute kidney failure, unspecified Status: Resolved Assessment and Plan: * resolved * as noted on admission with a creatinine of 2.2mg/dl * given history, likely due to volume depletion/dehydration in the context of DKA * renal function/creatinine has already improve with supportive therapy * no critical electrolytes and making good urine output * hold off on further testing given noted improvement in renal function * follow trend of repeat labs and UOP (2) Chronic kidney disease, stage 3: Code(s): N18.30 - Chronic kidney disease, stage 3 unspecified Status: Acute Assessment and Plan: * baseline creatinine runs around 1.4 - 1.6mg/dl * this causes him to fluctuate between CKD stage 3A and stage 3B * presumably secondary to hypertension, diabetes, significant vascular disease (coronary artery disease, CVA/TIAs, and hyperlipidemia) in association with his known history of urethral strictures and chronic outlet obstruction as well as age-related change (3) DKA (diabetic ketoacidosis): Qualifiers: Diabetes mellitus complication detail: without coma Diabetes mellitus type: type 2 Qualified Code(s): E11.10 - Type 2 diabetes mellitus with ketoacidosis without coma Code(s): E11.10 - Type 2 diabetes mellitus with ketoacidosis without coma Status: Acute Assessment and Plan: * resolved * as noted on admission * s/p IVFs and insulin gtt * transition ot SQ insulin once off insulin gtt * wean of IVFs given #1 has improved * advance diet as tolerated (4) Acute on chronic pancreatitis: Code(s): K85.90 - Acute pancreatitis without necrosis or infection, unspecified; K86.1 - Other chronic pancreatitis Status: Acute Assessment and Plan: * as noted by admission imaging and history * previous MRCP has shown multiple cystic lesions in the pancreas * GI consulted with recommendations noted (5) UTI (urinary tract infection): Code(s): N39.0 - Urinary tract infection, site not specified Status: Acute Assessment and Plan: * admission UA suggestive * on antibiotics * follow culture data - negative to date (6) COPD (chronic obstructive pulmonary disease): Code(s): J44.9 - Chronic obstructive pulmonary disease, unspecified Status: Chronic Assessment and Plan: * chronic issue * no evidence of exacerbation * continue bronchodilators PRN (7) BPH (benign prostatic hyperplasia): Code(s): N40.0 - Benign prostatic hyperplasia without lower urinary tract symptoms Status: Acute Assessment and Plan: * as noted by history and imaging * s/p rodriguez catheter placement * complicated by hematuria -- due to trauma(?) * resumed on tamsulosin (8) Parkinson disease: Qualifiers: Dyskinesia presence: unspecified whether dyskinesia Fluctuating manifestations: unspecified whether manifestations fluctuate Qualified Code(s): G20.A1 - Parkinson's disease without dyskinesia, without mention of fluctuations Code(s): G20 - Parkinson's disease Status: Acute Assessment and Plan: * continue Sinemet and primidone Not much else to add -- will continue to follow from a distance. Subjective Date/time seen: 07/06/24 09:15 Interval history: Follow-up for acute kidney injury/acute renal failure on chronic kidney disease. Transferred out of ICU after successful treatment with of DKA with insulin gtt and supportive therapy; renal function/creatinine has improved back to baseline if not better; no acute issues/events overnight or earlier this morning. Exam Narrative: General: elderly and frail male in NAD Heart: normal S1 and S2; no rub Lungs: clear to auscultation Abdomen: soft, nontender, nondistended, positive bowel sounds Extremities: no cyanosis or clubbing; no edema Skin: warm and dry Objective Data Vital Signs Vital Signs: Vital Signs Temp Pulse Resp BP Pulse Ox O2 Del Method 07/06/24 08:25 77 07/06/24 08:25 77 97 Room Air 07/06/24 07:40 97.8 F 72 18 170/94 H 97 07/06/24 06:00 78 07/06/24 04:00 79 07/06/24 03:53 97.8 F 82 18 165/81 H 97 07/06/24 02:00 82 07/06/24 00:00 82 07/05/24 23:31 97.8 F 81 18 148/98 H 100 07/05/24 22:00 82 07/05/24 20:00 77 07/05/24 22:42 155/87 H 07/05/24 20:15 97.7 F 74 18 162/77 H 99 07/05/24 17:56 97.3 F L 72 18 178/81 H 98 07/05/24 17:38 74 07/05/24 16:17 98.3 F 74 13 147/76 H 98 07/05/24 16:00 71 07/05/24 16:00 98.2 F 73 13 177/92 H 99 07/05/24 15:07 79 11 L 99 Room Air 07/05/24 14:00 74 07/05/24 14:00 98.4 F 72 14 157/79 H 99 07/05/24 14:05 100 Room Air Intake/Output Intake/Output: Intake & Output 07/03/24 07/04/24 07/05/24 07/06/24 23:59 23:59 23:59 23:59 Intake Total 1233.3 3013.7 1410.0 Output Total 2650 1700 Balance 1233.3 363.7 -290.0 Meds/Results Medications: Active Medications Generic Name Dose Route Start Last Admin Trade Name Freq PRN Reason Stop Dose Admin Acetaminophen 650 mg 07/04/24 15:46 Acetaminophen 325 Mg Tablet PO Q4H PRN Mild Pain (1-3) or Fever Hydrocodone Bitart/Acetaminophen 1 tab 07/04/24 15:46 Hydrocodone/Acetaminophen (*Crx) 5-325 Mg Tablet PO Q4H PRN Moderate Pain (4-6) Albuterol/Ipratropium 3 ml 07/05/24 09:53 Ipratropium 0.5 Mg/Albuterol Sulfate 2.5 Mg Ampul.Neb 3 Ml INHALATION Q6HRT PRN Shortness of breath or wheezing Amlodipine Besylate 5 mg 07/05/24 21:00 07/06/24 09:37 Amlodipine Besylate 5 Mg Tablet PO 5 mg DAILY PETE Administration Carbidopa/Levodopa 1 tablet 07/05/24 09:00 07/06/24 09:37 Carbidopa/Levodopa 25/100 Mg Tablet PO 1 tablet TID@0900,1700,2100 PETE Administration Clopidogrel Bisulfate 75 mg 07/06/24 09:00 07/06/24 09:37 Clopidogrel Bisulfate 75 Mg Tablet PO 75 mg DAILY PETE Administration Dextrose 12.5 gm 07/04/24 16:08 07/04/24 18:16 Dextrose 50% 25 Gm/50 Ml Syringe IV PUSH 12.5 gm PRN PRN Administration Hypoglycemia Protocol Glucagon 1 mg 07/04/24 16:08 Glucagon For Inj 1 Mg Vial IM PRN PRN Hypoglycemia Protocol Glucose 15 gm 07/04/24 16:08 Glucose Oral Gel 15 Gm Of Glucse In 37.5 Gm Tube PO PRN PRN Hypoglycemia Protocol Heparin Sodium (Porcine) 5,000 units 07/04/24 21:00 07/05/24 08:36 Heparin Sodium 5,000 Units/Ml Vial SUB-Q 5,000 units Q12HR PETE Administration Hydralazine HCl 10 mg 07/04/24 16:40 07/06/24 11:17 Hydralazine Hcl 20 Mg/Ml Vial IV PUSH 10 mg Q8H PRN Administration Blood Pressure - High Hydromorphone HCl 0.5 mg 07/04/24 16:44 Hydromorphone Hcl Inj (*Crx) 1 Mg/Ml Syr IV PUSH Q6HR PRN Pain Rated 7-10 Dextrose 1,000 mls @ 100 mls/hr 07/04/24 16:08 Dextrose 5% 1,000 Ml IVPB PRN PRN Hypoglycemia Protocol Levetiracetam 750 mg/ Dextrose 107.5 mls @ 430 mls/hr 07/04/24 21:00 07/06/24 10:10 IVPB Infused Q12HR PETE Infusion Cefepime HCl 0.5 gm/ Sodium 50 mls @ 100 mls/hr 07/05/24 13:00 07/06/24 12:42 Chloride IVPB 100 mls/hr Q24H PETE Administration Lactated Ringer's 1,000 mls @ 75 mls/hr 07/05/24 10:00 07/06/24 12:41 Lr - Lactated Ringers Iv IV CONT 75 mls/hr .[id number] PETE Administration Insulin Aspart 1 - 2 units 07/05/24 21:00 07/05/24 20:39 Insulin Aspart (*Bkc) 100 Units/Ml SUB-Q Not Given HS PETE Protocol Insulin Aspart 2 - 5 units 07/05/24 17:00 07/06/24 12:04 Insulin Aspart (*Bkc) 100 Units/Ml SUB-Q Not Given TIDWM PETE Protocol Insulin Glargine 10 units 07/05/24 08:50 07/06/24 09:38 Insulin Glargine (*Bkc) 100 Units/Ml SUB-Q 10 units QAM PETE Administration Ondansetron HCl 4 mg 07/04/24 15:46 Ondansetron Inj 4 Mg/2 Ml Vial IV PUSH Q6H PRN Nausea And Vomiting Pantoprazole Sodium 40 mg 07/05/24 09:00 07/06/24 09:36 Pantoprazole Sodium Iv 40 Mg Vial IV PUSH 40 mg DAILY PETE Administration Primidone 25 mg 07/05/24 21:00 07/05/24 20:39 Primidone 25 Mg Tablet PO 25 mg HS PETE Administration Tamsulosin HCl 0.4 mg 07/06/24 09:00 07/06/24 09:37 Tamsulosin Hcl 0.4 Mg Capsule PO 0.4 mg DAILY PETE Administration Radiology Results: ITS Impressions Abdomen/Pelvis CT 07/04/24 14:33 IMPRESSION: 1. Bilateral inguinal hernias containing fat. Labs Labs: Laboratory Tests 07/06/24 06:07 07/06/24 06:07 Calcium 8.6 Total Bilirubin 0.4 AST 19 ALT < 6 L Alkaline Phosphatase 104 Total Protein 5.0 L Albumin 3.2 L Lipase 855 H Microbiology 07/04/24 15:08 Urine Catheterized Urine Culture - Final 07/04/24 16:52 Blood Blood Culture - Preliminary 07/04/24 16:52 Blood Blood Culture - Preliminary
[2024-07-06] MEDS: PANTOPRAZOLE SODIUM IV 40 MG VIAL IV PUSH (09:36)
[2024-07-06] MEDS: TAMSULOSIN HCL 0.4 MG CAPSULE PO (09:37)
[2024-07-06] MEDS: CARBIDOPA/LEVODOPA 25/100 MG TABLET 1 TABLET PO ×3 (09:37→20:29)
[2024-07-06] MEDS: CLOPIDOGREL BISULFATE 75 MG TABLET PO (09:37)
[2024-07-06] MEDS: amLODIPine BESYLATE 5 MG TABLET PO (09:37)
[2024-07-06] MEDS: INSULIN GLARGINE (*BKC) 100 UNITS/ML 10 UNITS SUB-Q (09:38)
[2024-07-06] MEDS: levETIRAcetam IV 750 MG in DEXTROSE 5% 100 ML 430 MG IVPB (09:41)
[2024-07-06] MEDS: hydrALAZINE HCL 20 MG/ML VIAL 10 MG IV PUSH (11:17)
[2024-07-06 11:50] LABS: Glucose Point of Care 157 mg/dl (65-105)
[2024-07-06] MEDS: LACTATED RINGERS 1,000 ML 75 ML IV CONT (12:41)
[2024-07-06] MEDS: CEFEPIME 0.5 GM in SODIUM CHLORIDE 0.9% IV 50 ML IVPB (12:42)
--- NOTE | 2024-07-06 15:46 | PM.IMPN ---
Progress Note: A&P Assessment and Plan (1) DKA (diabetic ketoacidosis): Qualifiers: Diabetes mellitus complication detail: without coma Diabetes mellitus type: type 2 Qualified Code(s): E11.10 - Type 2 diabetes mellitus with ketoacidosis without coma Code(s): E11.10 - Type 2 diabetes mellitus with ketoacidosis without coma Status: Acute Assessment and Plan: Patient presents with nausea and found to have DKA. Glucose was 177 but serum bicarb 7, AG 30 and BHOB 11. He had SCARLETT. Pt was given IVF bolus and started on Insulin infusion through the DKA protocol. Serial labs performed and his anion gap closed. He was transitioned to subcutaneous insulin and weaned off insulin drip and IV fluids breastfeeding educator and dietitian were consulted ST with bedside evaluation recommended minced and moist Level 5 with thin liquids. Diet started. Continue Lantus. Stop IV fluids (2) Acute on chronic pancreatitis: Code(s): K85.90 - Acute pancreatitis without necrosis or infection, unspecified; K86.1 - Other chronic pancreatitis Status: Acute Assessment and Plan: Patient has acute on chronic pancreatitis. He has been evaluated in the past and his MRCP that has shown multiple cystic lesions in the pancreas. His lipase was elevated at 1874 but he denies any abdominal pain. CT scan of the abdomen shows cystic pancreatic lesions and calcifications suggestive of chronic pancreatitis GI consulted Lipase trending down. Tolerating oral intake (3) SCARLETT (acute kidney injury): Code(s): N17.9 - Acute kidney failure, unspecified Status: Resolved Assessment and Plan: Patient has CKD with baseline Cr 1.4-1.5. Cr on admission was 2.2 likely secondary to DKA, hypovolemia and dehydration Treated with IV fluids as mentioned above. CT Abd showing renal cysts, severely enlarged prostate with diffuse bladder wall thickening. No evidence of stones. Mcclain placed. Cr trending down to baseline. Cr 1.3 today. Nephrology consulted and appreciate their input. Good urine output. Continue Flomax. Add proscar. Stop IV fluids (4) UTI (urinary tract infection): Code(s): N39.0 - Urinary tract infection, site not specified Status: Acute Assessment and Plan: UA is consistent with UTI. UCx collected. Abx started. UCx mixed genital rajani. BCx NGTD. CXR clear and CT A/P showing no acute findings. No indiction for abx so will stop UTI ruled out (5) Seizure disorder: Code(s): G40.909 - Epilepsy, unspecified, not intractable, without status epilepticus Status: Acute Assessment and Plan: Stable. Continue Keppra and change to oral route (6) COPD (chronic obstructive pulmonary disease): Code(s): J44.9 - Chronic obstructive pulmonary disease, unspecified Status: Chronic Assessment and Plan: Lungs clear. No COPD exacerbation. P.r.n. bronchodilators. (7) BPH (benign prostatic hyperplasia): Code(s): N40.0 - Benign prostatic hyperplasia without lower urinary tract symptoms Status: Acute Assessment and Plan: Patient had a Mcclain placed due to urinary retention. He has some hematuria felt to be traumatic Tamsulosin resumed Mcclain trial in 1-2 days but may need to be home with Mcclain (8) Parkinson disease: Qualifiers: Dyskinesia presence: unspecified whether dyskinesia Fluctuating manifestations: unspecified whether manifestations fluctuate Qualified Code(s): G20.A1 - Parkinson's disease without dyskinesia, without mention of fluctuations Code(s): G20 - Parkinson's disease Status: Acute Assessment and Plan: Stable. Sinemet and primidone resumed Order PT/OT (9) CAD (coronary artery disease): Code(s): I25.10 - Atherosclerotic heart disease of [place] coronary artery without angina pectoris Status: Acute Assessment and Plan: Patient with hx of CAD. Not on statin,ASA or beta-servando. Plavix resumed Plan DVT prophylaxis - Heparin Code Status - patient is DNR Subjective Date/time seen: 07/06/24 15:46 Interval history: 88yo male with TIAs, asthma, blindness, DM and Parkinson's, brought in by EMS from home for nausea and vomiting for the past 2 days. Assuming care. Chart reviewed. Patient slept well but feels tired. No n/v. No abd pain. No CP. Exam Narrative: AF 97.8 135/69 76 18 97% ra Gen - NARD Chest - lungs clear anteriorly, nml RR CV - RRR S1/S2. Tele showing PVCs Abd - Soft, NT/ND, Positive BS - Mcclain secured draining clear yellow urine Ext - No pedal edema Neuro - Alert and oriented x4. Psych - speech/cognition is slow but clear. Skin - Warm and dry Objective Data Vital Signs Vital Signs: Vital Signs - 24 hr 07/05/24 16:00 07/05/24 16:00 07/05/24 16:17 Temperature 98.2 F 98.3 F Pulse Rate 73 71 74 Respiratory Rate 13 13 Blood Pressure 177/92 H 147/76 H Pulse Oximetry 99 98 Oxygen Delivery 07/05/24 17:38 07/05/24 17:56 07/05/24 20:15 Temperature 97.3 F L 97.7 F Pulse Rate 74 72 74 Respiratory Rate 18 18 Blood Pressure 178/81 H 162/77 H Pulse Oximetry 98 99 Oxygen Delivery 07/05/24 22:42 07/05/24 20:00 07/05/24 22:00 Temperature Pulse Rate 77 82 Respiratory Rate Blood Pressure 155/87 H Pulse Oximetry Oxygen Delivery 07/05/24 23:31 07/06/24 00:00 07/06/24 02:00 Temperature 97.8 F Pulse Rate 81 82 82 Respiratory Rate 18 Blood Pressure 148/98 H Pulse Oximetry 100 Oxygen Delivery 07/06/24 03:53 07/06/24 04:00 07/06/24 06:00 Temperature 97.8 F Pulse Rate 82 79 78 Respiratory Rate 18 Blood Pressure 165/81 H Pulse Oximetry 97 Oxygen Delivery 07/06/24 07:40 07/06/24 08:25 07/06/24 08:25 Temperature 97.8 F Pulse Rate 72 77 77 Respiratory Rate 18 Blood Pressure 170/94 H Pulse Oximetry 97 97 Oxygen Delivery Room Air 07/06/24 10:00 07/06/24 11:23 07/06/24 12:36 Temperature 97.8 F Pulse Rate 70 76 76 Respiratory Rate 18 Blood Pressure 167/86 H 135/69 Pulse Oximetry 97 Oxygen Delivery 07/06/24 12:00 07/06/24 12:00 Temperature Pulse Rate 76 76 Respiratory Rate Blood Pressure Pulse Oximetry 97 Oxygen Delivery Room Air Intake/Output Intake/Output: Intake & Output 07/03/24 07/04/24 07/05/24 07/06/24 23:59 23:59 23:59 23:59 Intake Total 1233.3 3013.7 1410.0 Output Total 2650 1700 Balance 1233.3 363.7 -290.0 Meds/Results Medications: Active Medications Generic Name Dose Route Start Last Admin Trade Name Freq PRN Reason Stop Dose Admin Acetaminophen 650 mg 07/04/24 15:46 Acetaminophen 325 Mg Tablet PO Q4H PRN Mild Pain (1-3) or Fever Hydrocodone Bitart/Acetaminophen 1 tab 07/04/24 15:46 Hydrocodone/Acetaminophen (*Crx) 5-325 Mg Tablet PO Q4H PRN Moderate Pain (4-6) Albuterol/Ipratropium 3 ml 07/05/24 09:53 Ipratropium 0.5 Mg/Albuterol Sulfate 2.5 Mg Ampul.Neb 3 Ml INHALATION Q6HRT PRN Shortness of breath or wheezing Amlodipine Besylate 5 mg 07/05/24 21:00 07/06/24 09:37 Amlodipine Besylate 5 Mg Tablet PO 5 mg DAILY PETE Administration Carbidopa/Levodopa 1 tablet 07/05/24 09:00 07/06/24 09:37 Carbidopa/Levodopa 25/100 Mg Tablet PO 1 tablet TID@0900,1700,2100 PETE Administration Clopidogrel Bisulfate 75 mg 07/06/24 09:00 07/06/24 09:37 Clopidogrel Bisulfate 75 Mg Tablet PO 75 mg DAILY PETE Administration Dextrose 12.5 gm 07/04/24 16:08 07/04/24 18:16 Dextrose 50% 25 Gm/50 Ml Syringe IV PUSH 12.5 gm PRN PRN Administration Hypoglycemia Protocol Glucagon 1 mg 07/04/24 16:08 Glucagon For Inj 1 Mg Vial IM PRN PRN Hypoglycemia Protocol Glucose 15 gm 07/04/24 16:08 Glucose Oral Gel 15 Gm Of Glucse In 37.5 Gm Tube PO PRN PRN Hypoglycemia Protocol Heparin Sodium (Porcine) 5,000 units 07/04/24 21:00 07/05/24 08:36 Heparin Sodium 5,000 Units/Ml Vial SUB-Q 5,000 units Q12HR PETE Administration Hydralazine HCl 10 mg 07/04/24 16:40 07/06/24 11:17 Hydralazine Hcl 20 Mg/Ml Vial IV PUSH 10 mg Q8H PRN Administration Blood Pressure - High Hydromorphone HCl 0.5 mg 07/04/24 16:44 Hydromorphone Hcl Inj (*Crx) 1 Mg/Ml Syr IV PUSH Q6HR PRN Pain Rated 7-10 Dextrose 1,000 mls @ 100 mls/hr 07/04/24 16:08 Dextrose 5% 1,000 Ml IVPB PRN PRN Hypoglycemia Protocol Levetiracetam 750 mg/ Dextrose 107.5 mls @ 430 mls/hr 07/04/24 21:00 07/06/24 10:10 IVPB Infused Q12HR PETE Infusion Cefepime HCl 0.5 gm/ Sodium 50 mls @ 100 mls/hr 07/05/24 13:00 07/06/24 12:42 Chloride IVPB 100 mls/hr Q24H PETE Administration Insulin Aspart 1 - 2 units 07/05/24 21:00 07/05/24 20:39 Insulin Aspart (*Bkc) 100 Units/Ml SUB-Q Not Given HS PETE Protocol Insulin Aspart 2 - 5 units 07/05/24 17:00 07/06/24 12:04 Insulin Aspart (*Bkc) 100 Units/Ml SUB-Q Not Given TIDWM [facility] Protocol Insulin Glargine 10 units 07/05/24 08:50 07/06/24 09:38 Insulin Glargine (*Bkc) 100 Units/Ml SUB-Q 10 units QAM PETE Administration Ondansetron HCl 4 mg 07/04/24 15:46 Ondansetron Inj 4 Mg/2 Ml Vial IV PUSH Q6H PRN Nausea And Vomiting Pantoprazole Sodium 40 mg 07/05/24 09:00 07/06/24 09:36 Pantoprazole Sodium Iv 40 Mg Vial IV PUSH 40 mg DAILY PETE Administration Primidone 25 mg 07/05/24 21:00 07/05/24 20:39 Primidone 25 Mg Tablet PO 25 mg HS PETE Administration Tamsulosin HCl 0.4 mg 07/06/24 09:00 07/06/24 09:37 Tamsulosin Hcl 0.4 Mg Capsule PO 0.4 mg DAILY PETE Administration Radiology Results: ITS Impressions Abdomen/Pelvis CT 07/04/24 14:33 IMPRESSION: 1. Bilateral inguinal hernias containing fat. Chest X-Ray 07/06/24 09:40 IMPRESSION: 1. No acute cardiopulmonary disease. MRCP 07/06/24 11:23 IMPRESSION: 1. Worsened acute on chronic pancreatitis. 2. No choledocholithiasis. Labs Labs: Laboratory Results - last 24 hr 07/05/24 07/05/24 07/05/24 15:58 18:17 19:43 WBC RBC Hgb Hct MCV MCH MCHC RDW Plt Count MPV Immature Gran % (Auto) Neut % (Auto) Lymph % (Auto) [place] % (Auto) Eos % (Auto) Baso % (Auto) Lymph # (Auto) [place] # (Auto) Eos # (Auto) Baso # (Auto) Abs Immat Gran (auto) Absolute Neuts (auto) Absolute Nucleated RBC Nucleated RBC % Sodium 134 L Potassium 4.3 Chloride 106 Carbon Dioxide 18 L Anion Gap 10 BUN 32 H Creatinine 1.50 H Estim Creat Clear Calc 30 Estimated GFR 44 L Glucose 158 H POC Capillary Glucose 154 H 168 H Calcium 9.0 Total Bilirubin AST ALT Alkaline Phosphatase Total Protein Albumin Lipase 07/06/24 07/06/24 07/06/24 06:07 07:27 11:04 WBC 6.5 RBC 4.25 L Hgb 10.9 L Hct 32.9 L MCV 77.4 L MCH 25.6 L MCHC 33.1 RDW 15.8 H Plt Count 209 MPV 9.0 Immature Gran % (Auto) 0.5 Neut % (Auto) 82.4 H Lymph % (Auto) 8.0 L [place] % (Auto) 8.7 H Eos % (Auto) 0.2 Baso % (Auto) 0.2 Lymph # (Auto) 0.52 L [place] # (Auto) 0.6 Eos # (Auto) 0.0 Baso # (Auto) 0.0 Abs Immat Gran (auto) 0.03 Absolute Neuts (auto) 5.3 Absolute Nucleated RBC 0.000 Nucleated RBC % 0.0 Sodium 133 L Potassium 3.7 Chloride 106 Carbon Dioxide 21 L Anion Gap 6 BUN 25 H Creatinine 1.30 Estim Creat Clear Calc 34 Estimated GFR 52 L Glucose 137 H POC Capillary Glucose 131 H 157 H Calcium 8.6 Total Bilirubin 0.4 AST 19 ALT < 6 L Alkaline Phosphatase 104 Total Protein 5.0 L Albumin 3.2 L Lipase 855 H
[2024-07-06 16:03] LABS: Glucose Point of Care 157 mg/dl (65-105)
[2024-07-06] MEDS: PRIMIDONE 25 MG TABLET PO (20:29)
[2024-07-06] MEDS: levETIRAcetam Tablet 250 MG, levETIRAcetam Tablet 500 MG 750 MG PO (20:29)
[2024-07-06] MEDS: HEPARIN SODIUM 5,000 UNITS/ML VIAL 5000 UNITS SUB-Q (20:30)
[2024-07-06 21:37] LABS: Glucose Point of Care 181 mg/dl (65-105)
[2024-07-07] VITALS (14 sets, daily range): BP systolic 130–152; BP diastolic 68–113; PULSE 70–88; RESP 16–19; TEMP 36.4–37.3; O2SAT 97–100
[2024-07-07 04:55] LABS: Basophils Percent Auto 0.3 % (0.2-1.2); Eosinophils Absolute Auto 0.1 K/mm3 (0-0.3); Eosinophils Percent Auto 1.2 % (0-4.4); Hematocrit 33.6 % (42.0-52.0); Hemoglobin 10.9 g/dL (14.0-18.0); Immature Granulocyte Absolute 0.01 K/mm3 (0.00-0.031); Immature Granulocyte Percent A 0.2 % (0-0.5); Lymphocytes Absolute Auto 0.74 K/mm3 (0.9-3.2); Lymphocytes Percent Auto 12.8 % (18.3-44.2); Mean Corpuscular HGB Conc 32.4 g/dl (32-36); Mean Corpuscular Hemoglobin 25.4 pg (26-34); Mean Corpuscular Volume 78.3 fl (80-100); Mean Platelet Volume 8.7 fl (7.4-10.4); Monocytes Absolute Auto 0.5 K/mm3 (0.1-0.6); Neutrophils Absolute Auto 4.4 K/mm3 (1.3-6.7); Neutrophils Percent Auto 76.5 % (45.5-73.1); Platelet Count Result 179 k/mm3 (150-375); Red Blood Count 4.29 M/mm3 (4.6-6.20); White Blood Count 5.8 K/mm3 (4.5-10.0)
[2024-07-07 05:08] LABS: Albumin Level 3.1 g/dL (3.5-5.1); Alkaline Phosphatase 98 U/L (38-126); Anion Gap 4 mmol/L (4-12); Aspartate Amino Transferase 18 U/L (17-59); Bilirubin,Total 0.5 mg/dL (0.2-1.3); Blood Urea Nitrogen 20 mg/dL (9-20); Calcium 8.8 mg/dL (8.4-10.2); Carbon Dioxide 24 mmol/L (22-30); Chloride 105 mmol/L (98-107); Estimated CRCL calculation 40 ml/min; Estimated Glomerular Filt Rate > 60; Glucose 113 mg/dL (65-110); Lipase 716 U/L (23-300); Magnesium 1.9 mg/dL (1.6-2.3); Phosphorus 3.1 mg/dL (2.5-4.5); Potassium 3.4 mmol/L (3.4-5.0); Sodium 133 mmol/L (137-145)
[2024-07-07 05:09] LABS: Alanine Aminotransferase < 6 U/L (6-50)
[2024-07-07 06:57] LABS: Glucose Point of Care 111 mg/dl (65-105)
[2024-07-07] MEDS: amLODIPine BESYLATE 5 MG TABLET PO (09:16)
[2024-07-07] MEDS: CARBIDOPA/LEVODOPA 25/100 MG TABLET 1 TABLET PO ×3 (09:16→20:43)
[2024-07-07] MEDS: levETIRAcetam Tablet 250 MG, levETIRAcetam Tablet 500 MG 750 MG PO ×2 (09:16→20:43)
[2024-07-07] MEDS: FINASTERIDE 5 MG TABLET PO (09:17)
[2024-07-07] MEDS: TAMSULOSIN HCL 0.4 MG CAPSULE PO (09:17)
[2024-07-07] MEDS: CLOPIDOGREL BISULFATE 75 MG TABLET PO (09:17)
[2024-07-07] MEDS: INSULIN GLARGINE (*BKC) 100 UNITS/ML 10 UNITS SUB-Q (09:17)
[2024-07-07] MEDS: PANTOPRAZOLE 40 MG TABLET PO (09:17)
[2024-07-07] MEDS: HEPARIN SODIUM 5,000 UNITS/ML VIAL 5000 UNITS SUB-Q ×2 (09:17→20:47)
--- NOTE | 2024-07-07 11:29 | PM.IMPN ---
Progress Note: A&P Assessment and Plan (1) DKA (diabetic ketoacidosis): Qualifiers: Diabetes mellitus complication detail: without coma Diabetes mellitus type: type 2 Qualified Code(s): E11.10 - Type 2 diabetes mellitus with ketoacidosis without coma Code(s): E11.10 - Type 2 diabetes mellitus with ketoacidosis without coma Status: Acute Assessment and Plan: Patient presents with nausea and found to have DKA. Glucose was 177 but serum bicarb 7, AG 30 and BHOB 11. He had SCARLETT. Pt was given IVF bolus and started on Insulin infusion through the DKA protocol. Serial labs performed and his anion gap closed. He was transitioned to subcutaneous insulin and weaned off insulin drip and IV fluids refrigeration plant cork insulator and dietitian were consulted ST with bedside evaluation recommended minced and moist Level 5 with thin liquids. Diet started. Continue Lantus. Continue to hold empagliflozin and sitagliptin. (2) Acute on chronic pancreatitis: Code(s): K85.90 - Acute pancreatitis without necrosis or infection, unspecified; K86.1 - Other chronic pancreatitis Status: Acute Assessment and Plan: Patient has acute on chronic pancreatitis. He has been evaluated in the past and his MRCP that has shown multiple cystic lesions in the pancreas. His lipase was elevated at 1874 but he denies any abdominal pain. CT scan of the abdomen shows cystic pancreatic lesions and calcifications suggestive of chronic pancreatitis MRCP showing worsened acute on chronic pancreatitis. No choledocholithiasis. GI consulted Lipase trending down. Tolerating oral intake. Follow (3) SCARLETT (acute kidney injury): Code(s): N17.9 - Acute kidney failure, unspecified Status: Resolved Assessment and Plan: Patient has CKD with baseline Cr 1.4-1.5. Cr on admission was 2.2 likely secondary to DKA, hypovolemia and dehydration Treated with IV fluids CT Abd showing renal cysts, severely enlarged prostate with diffuse bladder wall thickening. No evidence of stones. Mcclain placed. Cr trending down to baseline. Cr 1.1 today. Nephrology consulted and appreciate their input. Good urine output. Continue Flomax. Proscar added. Off IV fluids now (4) Seizure disorder: Code(s): G40.909 - Epilepsy, unspecified, not intractable, without status epilepticus Status: Acute Assessment and Plan: Stable. Continue Keppra and change to oral route (5) COPD (chronic obstructive pulmonary disease): Code(s): J44.9 - Chronic obstructive pulmonary disease, unspecified Status: Chronic Assessment and Plan: Lungs clear. No COPD exacerbation. Continue bronchodilators prn. (6) BPH (benign prostatic hyperplasia): Code(s): N40.0 - Benign prostatic hyperplasia without lower urinary tract symptoms Status: Acute Assessment and Plan: Patient had a Mcclain placed due to urinary retention. He has some hematuria felt to be traumatic Tamsulosin resumed and Proscar added Mcclain trial in 1-2 days but may need to be home with Mcclain. (7) Parkinson disease: Qualifiers: Dyskinesia presence: unspecified whether dyskinesia Fluctuating manifestations: unspecified whether manifestations fluctuate Qualified Code(s): G20.A1 - Parkinson's disease without dyskinesia, without mention of fluctuations Code(s): G20 - Parkinson's disease Status: Acute Assessment and Plan: Stable. Sinemet and primidone resumed PT/OT ordered (8) CAD (coronary artery disease): Code(s): I25.10 - Atherosclerotic heart disease of [place] coronary artery without angina pectoris Status: Acute Assessment and Plan: Patient with hx of CAD. Not on statin, ASA or beta-servando. Plavix resumed (9) Diabetes: Qualifiers: Diabetes mellitus type: type 2 Diabetes mellitus watermelon inspector insulin use: without fci use Diabetes mellitus complication status: with neurologic complications Diabetes mellitus complication detail: with unspecified neuropathy Qualified Code(s): E11.40 - Type 2 diabetes mellitus with diabetic neuropathy, unspecified Code(s): E11.9 - Type 2 diabetes mellitus without complications Status: Acute Assessment and Plan: As above (10) UTI (urinary tract infection): Code(s): N39.0 - Urinary tract infection, site not specified Status: Acute Assessment and Plan: UA is consistent with UTI. UCx collected. Abx started. UCx mixed genital rajani. BCx NGTD. CXR clear and CT A/P showing no acute findings. No indiction for abx so will stop UTI ruled out Plan DVT prophylaxis - Heparin Code Status - patient is DNR Subjective Date/time seen: 07/07/24 11:29 Interval history: 88yo male with TIAs, asthma, blindness, DM and Parkinson's, brought in by EMS from home for nausea and vomiting for the past 2 days. Feeling better. No abd pain. No n/v. No CP. No SOB. Exam Narrative: AF 98.1 132/72 70 18 98% ra Gen - NARD Chest - few biabsilar crackles. CV - RRR S1/S2. Tele showing PACs Abd - Soft, NT/ND, Positive BS - Mcclian secured draining dark yellow urine Ext - No pedal edema Neuro - Alert and oriented x4. Psych - normal mood and affect Skin - Warm and dry. dried round raised eschars noted tip on nose, top of head and bilateral pre-auricular area. Left forearm bruising Objective Data Vital Signs Vital Signs: Vital Signs - 24 hr 07/06/24 12:36 07/06/24 12:00 07/06/24 12:00 Temperature Pulse Rate 76 76 76 Respiratory Rate Blood Pressure 135/69 Pulse Oximetry 97 Oxygen Delivery Room Air 07/06/24 16:02 07/06/24 14:00 07/06/24 16:00 Temperature 97.8 F Pulse Rate 74 85 82 Respiratory Rate 18 Blood Pressure 158/88 H Pulse Oximetry 97 Oxygen Delivery 07/06/24 16:00 07/06/24 18:54 07/06/24 20:00 Temperature 98.2 F Pulse Rate 82 83 Respiratory Rate 18 Blood Pressure 148/82 H Pulse Oximetry 97 Oxygen Delivery Room Air 07/06/24 22:00 07/06/24 20:30 07/07/24 00:00 Temperature 98.1 F Pulse Rate 84 79 Respiratory Rate 19 Blood Pressure 136/76 Pulse Oximetry 97 Oxygen Delivery Room Air 07/07/24 00:00 07/07/24 02:00 07/07/24 00:00 Temperature Pulse Rate 79 76 Respiratory Rate Blood Pressure Pulse Oximetry Oxygen Delivery Room Air 07/07/24 04:05 07/07/24 04:00 07/07/24 06:21 Temperature 98.1 F Pulse Rate 73 74 Respiratory Rate 18 Blood Pressure 130/74 Pulse Oximetry 98 Oxygen Delivery Room Air 07/07/24 07:30 07/07/24 08:00 07/07/24 09:52 Temperature 98.1 F Pulse Rate 71 74 70 Respiratory Rate 18 Blood Pressure 132/72 Pulse Oximetry 98 Oxygen Delivery Intake/Output Intake/Output: Intake & Output 07/04/24 07/05/24 07/06/24 07/07/24 23:59 23:59 23:59 23:59 Intake Total 1233.3 3013.7 1680.0 100 Output Total 2650 2100 1100 Balance 1233.3 363.7 -420.0 -1000 Meds/Results Medications: Active Medications Generic Name Dose Route Start Last Admin Trade Name Freq PRN Reason Stop Dose Admin Acetaminophen 650 mg 07/04/24 15:46 Acetaminophen 325 Mg Tablet PO Q4H PRN Mild Pain (1-3) or Fever Hydrocodone Bitart/Acetaminophen 1 tab 07/04/24 15:46 Hydrocodone/Acetaminophen (*Crx) 5-325 Mg Tablet PO Q4H PRN Moderate Pain (4-6) Albuterol/Ipratropium 3 ml 07/05/24 09:53 Ipratropium 0.5 Mg/Albuterol Sulfate 2.5 Mg Ampul.Neb 3 Ml INHALATION Q6HRT PRN Shortness of breath or wheezing Amlodipine Besylate 5 mg 07/05/24 21:00 07/07/24 09:16 Amlodipine Besylate 5 Mg Tablet PO 5 mg DAILY PETE Administration Carbidopa/Levodopa 1 tablet 07/05/24 09:00 07/07/24 09:16 Carbidopa/Levodopa 25/100 Mg Tablet PO 1 tablet TID@0900,1700,2100 PETE Administration Clopidogrel Bisulfate 75 mg 07/06/24 09:00 07/07/24 09:17 Clopidogrel Bisulfate 75 Mg Tablet PO 75 mg DAILY PETE Administration Dextrose 12.5 gm 07/04/24 16:08 07/04/24 18:16 Dextrose 50% 25 Gm/50 Ml Syringe IV PUSH 12.5 gm PRN PRN Administration Hypoglycemia Protocol Finasteride 5 mg 07/07/24 09:00 07/07/24 09:17 Finasteride 5 Mg Tablet PO 5 mg QAM PETE Administration Glucagon 1 mg 07/04/24 16:08 Glucagon For Inj 1 Mg Vial IM PRN PRN Hypoglycemia Protocol Glucose 15 gm 07/04/24 16:08 Glucose Oral Gel 15 Gm Of Glucse In 37.5 Gm Tube PO PRN PRN Hypoglycemia Protocol Heparin Sodium (Porcine) 5,000 units 07/04/24 21:00 07/07/24 09:17 Heparin Sodium 5,000 Units/Ml Vial SUB-Q 5,000 units Q12HR PETE Administration Hydralazine HCl 10 mg 07/04/24 16:40 07/06/24 11:17 Hydralazine Hcl 20 Mg/Ml Vial IV PUSH 10 mg Q8H PRN Administration Blood Pressure - High Hydromorphone HCl 0.5 mg 07/04/24 16:44 Hydromorphone Hcl Inj (*Crx) 1 Mg/Ml Syr IV PUSH Q6HR PRN Pain Rated 7-10 Dextrose 1,000 mls @ 100 mls/hr 07/04/24 16:08 Dextrose 5% 1,000 Ml IVPB PRN PRN Hypoglycemia Protocol Insulin Aspart 1 - 2 units 07/05/24 21:00 07/06/24 21:39 Insulin Aspart (*Bkc) 100 Units/Ml SUB-Q Not Given HS PETE Protocol Insulin Aspart 2 - 5 units 07/05/24 17:00 07/07/24 08:45 Insulin Aspart (*Bkc) 100 Units/Ml SUB-Q Not Given TIDWM PETE Protocol Insulin Glargine 10 units 07/05/24 08:50 07/07/24 09:17 Insulin Glargine (*Bkc) 100 Units/Ml SUB-Q 10 units QAM PETE Administration Levetiracetam 250 mg/ 750 mg 07/06/24 21:00 07/07/24 09:16 Levetiracetam 500 mg PO 750 mg Q12HR PETE Administration Ondansetron HCl 4 mg 07/04/24 15:46 Ondansetron Inj 4 Mg/2 Ml Vial IV PUSH Q6H PRN Nausea And Vomiting Pantoprazole Sodium 40 mg 07/07/24 09:00 07/07/24 09:17 Pantoprazole 40 Mg Tablet PO 40 mg QAM PETE Administration Primidone 25 mg 07/05/24 21:00 07/06/24 20:29 Primidone 25 Mg Tablet PO 25 mg HS PETE Administration Tamsulosin HCl 0.4 mg 07/06/24 09:00 07/07/24 09:17 Tamsulosin Hcl 0.4 Mg Capsule PO 0.4 mg DAILY PETE Administration Radiology Results: ITS Impressions Abdomen/Pelvis CT 07/04/24 14:33 IMPRESSION: 1. Bilateral inguinal hernias containing fat. Chest X-Ray 07/06/24 09:40 IMPRESSION: 1. No acute cardiopulmonary disease. MRCP 07/06/24 11:23 IMPRESSION: 1. Worsened acute on chronic pancreatitis. 2. No choledocholithiasis. Labs Labs: Laboratory Results - last 24 hr 07/06/24 07/06/24 07/06/24 11:04 16:00 21:15 WBC RBC Hgb Hct MCV MCH MCHC RDW Plt Count MPV Immature Gran % (Auto) Neut % (Auto) Lymph % (Auto) [place] % (Auto) Eos % (Auto) Baso % (Auto) Lymph # (Auto) [place] # (Auto) Eos # (Auto) Baso # (Auto) Abs Immat Gran (auto) Absolute Neuts (auto) Absolute Nucleated RBC Nucleated RBC % Sodium Potassium Chloride Carbon Dioxide Anion Gap BUN Creatinine Estim Creat Clear Calc Estimated GFR Glucose POC Capillary Glucose 157 H 157 H 181 H Calcium Phosphorus Magnesium Total Bilirubin AST ALT Alkaline Phosphatase Total Protein Albumin Lipase 07/07/24 07/07/24 04:50 06:55 WBC 5.8 RBC 4.29 L Hgb 10.9 L Hct 33.6 L MCV 78.3 L MCH 25.4 L MCHC 32.4 RDW 16.0 H Plt Count 179 MPV 8.7 Immature Gran % (Auto) 0.2 Neut % (Auto) 76.5 H Lymph % (Auto) 12.8 L [place] % (Auto) 9.0 H Eos % (Auto) 1.2 Baso % (Auto) 0.3 Lymph # (Auto) 0.74 L [place] # (Auto) 0.5 Eos # (Auto) 0.1 Baso # (Auto) 0.0 Abs Immat Gran (auto) 0.01 Absolute Neuts (auto) 4.4 Absolute Nucleated RBC 0.000 Nucleated RBC % 0.0 Sodium 133 L Potassium 3.4 Chloride 105 Carbon Dioxide 24 Anion Gap 4 BUN 20 Creatinine 1.10 Estim Creat Clear Calc 40 Estimated GFR > 60 Glucose 113 H POC Capillary Glucose 111 H Calcium 8.8 Phosphorus 3.1 Magnesium 1.9 Total Bilirubin 0.5 AST 18 ALT < 6 L Alkaline Phosphatase 98 Total Protein 6.0 L Albumin 3.1 L Lipase 716 H
[2024-07-07 11:33] LABS: Glucose Point of Care 143 mg/dl (65-105)
[2024-07-07] MEDS: POTASSIUM CHLORIDE 20 MEQ PACKET (FOR LIQUID) PO (11:53)
--- NOTE | 2024-07-07 15:34 | WPDGIPROGNO ---
Progress Note: A&P Assessment and Plan (1) Acute on chronic pancreatitis: Code(s): K85.90 - Acute pancreatitis without necrosis or infection, unspecified; K86.1 - Other chronic pancreatitis Status: Acute Assessment and Plan: symptomatically better, still poor appetite (2) DKA (diabetic ketoacidosis): Code(s): E11.10 - Type 2 diabetes mellitus with ketoacidosis without coma Status: Acute Assessment and Plan: AG closed, on medical treatment (3) Chronic kidney disease, stage 3: Code(s): N18.30 - Chronic kidney disease, stage 3 unspecified Status: Acute (4) Abdominal pain: Code(s): R10.9 - Unspecified abdominal pain Status: Acute Assessment and Plan: improved Subjective Date/time seen: 07/07/24 15:34 Interval history: no changes Review of Systems Review of Systems: All systems reviewed & are unremarkable except as noted in HPI and below Exam Narrative: Gen - NARD neck supple Chest - lungs clear anteriorly, nml RR CV - RRR S1/S2. Tele showing PVCs Abd - Soft, NT/ND, Positive BS - Mcclain secured draining clear yellow urine Ext - No pedal edema Neuro - Alert and oriented. Psych - speech/cognition is slow but clear. Skin - Warm and dry Objective Data Vital Signs Vital Signs: Vital Signs - 24 hr 07/06/24 16:02 07/06/24 16:00 07/06/24 16:00 Temperature 97.8 F Pulse Rate 74 82 Respiratory Rate 18 Blood Pressure 158/88 H Pulse Oximetry 97 Oxygen Delivery Room Air 07/06/24 18:54 07/06/24 20:00 07/06/24 22:00 Temperature 98.2 F Pulse Rate 82 83 84 Respiratory Rate 18 Blood Pressure 148/82 H Pulse Oximetry 97 Oxygen Delivery 07/06/24 20:30 07/07/24 00:00 07/07/24 00:00 Temperature 98.1 F Pulse Rate 79 79 Respiratory Rate 19 Blood Pressure 136/76 Pulse Oximetry 97 Oxygen Delivery Room Air 07/07/24 02:00 07/07/24 00:00 07/07/24 04:05 Temperature Pulse Rate 76 Respiratory Rate Blood Pressure Pulse Oximetry Oxygen Delivery Room Air Room Air 07/07/24 04:00 07/07/24 06:21 07/07/24 07:30 Temperature 98.1 F 98.1 F Pulse Rate 73 74 71 Respiratory Rate 18 18 Blood Pressure 130/74 132/72 Pulse Oximetry 98 98 Oxygen Delivery 07/07/24 08:00 07/07/24 09:52 07/07/24 12:00 Temperature 98.2 F Pulse Rate 74 70 88 Respiratory Rate 16 Blood Pressure 152/113 H Pulse Oximetry 100 Oxygen Delivery 07/07/24 13:21 07/07/24 12:00 07/07/24 13:02 Temperature Pulse Rate 77 Respiratory Rate Blood Pressure Pulse Oximetry Oxygen Delivery Room Air Room Air Intake/Output Intake/Output: Intake & Output 07/04/24 07/05/24 07/06/24 07/07/24 23:59 23:59 23:59 23:59 Intake Total 1233.3 3013.7 1680.0 460 Output Total 2650 2100 1100 Balance 1233.3 363.7 -420.0 -640 Meds/Results Medications: Active Medications Generic Name Dose Route Start Last Admin Trade Name Freq PRN Reason Stop Dose Admin Acetaminophen 650 mg 07/04/24 15:46 Acetaminophen 325 Mg Tablet PO Q4H PRN Mild Pain (1-3) or Fever Hydrocodone Bitart/Acetaminophen 1 tab 07/04/24 15:46 Hydrocodone/Acetaminophen (*Crx) 5-325 Mg Tablet PO Q4H PRN Moderate Pain (4-6) Albuterol/Ipratropium 3 ml 07/05/24 09:53 Ipratropium 0.5 Mg/Albuterol Sulfate 2.5 Mg Ampul.Neb 3 Ml INHALATION Q6HRT PRN Shortness of breath or wheezing Amlodipine Besylate 5 mg 07/05/24 21:00 07/07/24 09:16 Amlodipine Besylate 5 Mg Tablet PO 5 mg DAILY PETE Administration Carbidopa/Levodopa 1 tablet 07/05/24 09:00 07/07/24 09:16 Carbidopa/Levodopa 25/100 Mg Tablet PO 1 tablet TID@0900,1700,2100 PETE Administration Clopidogrel Bisulfate 75 mg 07/06/24 09:00 07/07/24 09:17 Clopidogrel Bisulfate 75 Mg Tablet PO 75 mg DAILY PETE Administration Dextrose 12.5 gm 07/04/24 16:08 07/04/24 18:16 Dextrose 50% 25 Gm/50 Ml Syringe IV PUSH 12.5 gm PRN PRN Administration Hypoglycemia Protocol Finasteride 5 mg 07/07/24 09:00 07/07/24 09:17 Finasteride 5 Mg Tablet PO 5 mg QAM PETE Administration Glucagon 1 mg 07/04/24 16:08 Glucagon For Inj 1 Mg Vial IM PRN PRN Hypoglycemia Protocol Glucose 15 gm 07/04/24 16:08 Glucose Oral Gel 15 Gm Of Glucse In 37.5 Gm Tube PO PRN PRN Hypoglycemia Protocol Heparin Sodium (Porcine) 5,000 units 07/04/24 21:00 07/07/24 09:17 Heparin Sodium 5,000 Units/Ml Vial SUB-Q 5,000 units Q12HR PETE Administration Hydralazine HCl 10 mg 07/04/24 16:40 07/06/24 11:17 Hydralazine Hcl 20 Mg/Ml Vial IV PUSH 10 mg Q8H PRN Administration Blood Pressure - High Hydromorphone HCl 0.5 mg 07/04/24 16:44 Hydromorphone Hcl Inj (*Crx) 1 Mg/Ml Syr IV PUSH Q6HR PRN Pain Rated 7-10 Dextrose 1,000 mls @ 100 mls/hr 07/04/24 16:08 Dextrose 5% 1,000 Ml IVPB PRN PRN Hypoglycemia Protocol Insulin Aspart 1 - 2 units 07/05/24 21:00 07/06/24 21:39 Insulin Aspart (*Bkc) 100 Units/Ml SUB-Q Not Given HS PETE Protocol Insulin Aspart 2 - 5 units 07/05/24 17:00 07/07/24 11:36 Insulin Aspart (*Bkc) 100 Units/Ml SUB-Q Not Given TIDWM [facility] Protocol Insulin Glargine 10 units 07/05/24 08:50 07/07/24 09:17 Insulin Glargine (*Bkc) 100 Units/Ml SUB-Q 10 units QAM PETE Administration Levetiracetam 250 mg/ 750 mg 07/06/24 21:00 07/07/24 09:16 Levetiracetam 500 mg PO 750 mg Q12HR PETE Administration Ondansetron HCl 4 mg 07/04/24 15:46 Ondansetron Inj 4 Mg/2 Ml Vial IV PUSH Q6H PRN Nausea And Vomiting Pantoprazole Sodium 40 mg 07/07/24 09:00 07/07/24 09:17 Pantoprazole 40 Mg Tablet PO 40 mg QAM PETE Administration Primidone 25 mg 07/05/24 21:00 07/06/24 20:29 Primidone 25 Mg Tablet PO 25 mg HS PETE Administration Tamsulosin HCl 0.4 mg 07/06/24 09:00 07/07/24 09:17 Tamsulosin Hcl 0.4 Mg Capsule PO 0.4 mg DAILY PETE Administration Radiology Results: ITS Impressions Abdomen/Pelvis CT 07/04/24 14:33 IMPRESSION: 1. Bilateral inguinal hernias containing fat. Chest X-Ray 07/06/24 09:40 IMPRESSION: 1. No acute cardiopulmonary disease. MRCP 07/06/24 11:23 IMPRESSION: 1. Worsened acute on chronic pancreatitis. 2. No choledocholithiasis. Labs Labs: Laboratory Results - last 24 hr 07/06/24 07/06/24 07/07/24 16:00 21:15 04:50 WBC 5.8 RBC 4.29 L Hgb 10.9 L Hct 33.6 L MCV 78.3 L MCH 25.4 L MCHC 32.4 RDW 16.0 H Plt Count 179 MPV 8.7 Immature Gran % (Auto) 0.2 Neut % (Auto) 76.5 H Lymph % (Auto) 12.8 L [place] % (Auto) 9.0 H Eos % (Auto) 1.2 Baso % (Auto) 0.3 Lymph # (Auto) 0.74 L [place] # (Auto) 0.5 Eos # (Auto) 0.1 Baso # (Auto) 0.0 Abs Immat Gran (auto) 0.01 Absolute Neuts (auto) 4.4 Absolute Nucleated RBC 0.000 Nucleated RBC % 0.0 Sodium 133 L Potassium 3.4 Chloride 105 Carbon Dioxide 24 Anion Gap 4 BUN 20 Creatinine 1.10 Estim Creat Clear Calc 40 Estimated GFR > 60 Glucose 113 H POC Capillary Glucose 157 H 181 H Calcium 8.8 Phosphorus 3.1 Magnesium 1.9 Total Bilirubin 0.5 AST 18 ALT < 6 L Alkaline Phosphatase 98 Total Protein 6.0 L Albumin 3.1 L Lipase 716 H 07/07/24 07/07/24 06:55 11:17 WBC RBC Hgb Hct MCV MCH MCHC RDW Plt Count MPV Immature Gran % (Auto) Neut % (Auto) Lymph % (Auto) [place] % (Auto) Eos % (Auto) Baso % (Auto) Lymph # (Auto) [place] # (Auto) Eos # (Auto) Baso # (Auto) Abs Immat Gran (auto) Absolute Neuts (auto) Absolute Nucleated RBC Nucleated RBC % Sodium Potassium Chloride Carbon Dioxide Anion Gap BUN Creatinine Estim Creat Clear Calc Estimated GFR Glucose POC Capillary Glucose 111 H 143 H Calcium Phosphorus Magnesium Total Bilirubin AST ALT Alkaline Phosphatase Total Protein Albumin Lipase
--- NOTE | 2024-07-07 15:37 | P.PNGI_ITS ---
Progress Note: A&P Assessment and Plan (1) Acute on chronic pancreatitis: Code(s): K85.90 - Acute pancreatitis without necrosis or infection, unspecified; K86.1 - Other chronic pancreatitis Status: Acute Assessment and Plan: liquid diet, will advance as tolerated still poor appetite family member at bedside (2) DKA (diabetic ketoacidosis): Code(s): E11.10 - Type 2 diabetes mellitus with ketoacidosis without coma Status: Acute Assessment and Plan: on insulin, resolved (3) Chronic kidney disease, stage 3: Code(s): N18.30 - Chronic kidney disease, stage 3 unspecified Status: Acute (4) Abdominal pain: Code(s): R10.9 - Unspecified abdominal pain Status: Acute Assessment and Plan: improved Subjective Date/time seen: 07/06/24 11:28 Interval history: moved from icu to floor (this note should be from 07/06/24) Review of Systems Review of Systems: All systems reviewed & are unremarkable except as noted in HPI and below Exam Narrative: Gen - NARD neck supple Chest - lungs clear anteriorly, nml RR CV - RRR S1/S2. Tele showing PVCs Abd - Soft, NT/ND, Positive BS - Mcclain secured draining clear yellow urine Ext - No pedal edema Neuro - Alert and oriented. Psych - speech/cognition is slow but clear. Skin - Warm and dry Objective Data Vital Signs Vital Signs: Vital Signs - 24 hr 07/06/24 16:02 07/06/24 16:00 07/06/24 16:00 Temperature 97.8 F Pulse Rate 74 82 Respiratory Rate 18 Blood Pressure 158/88 H Pulse Oximetry 97 Oxygen Delivery Room Air 07/06/24 18:54 07/06/24 20:00 07/06/24 22:00 Temperature 98.2 F Pulse Rate 82 83 84 Respiratory Rate 18 Blood Pressure 148/82 H Pulse Oximetry 97 Oxygen Delivery 07/06/24 20:30 07/07/24 00:00 07/07/24 00:00 Temperature 98.1 F Pulse Rate 79 79 Respiratory Rate 19 Blood Pressure 136/76 Pulse Oximetry 97 Oxygen Delivery Room Air 07/07/24 02:00 07/07/24 00:00 07/07/24 04:05 Temperature Pulse Rate 76 Respiratory Rate Blood Pressure Pulse Oximetry Oxygen Delivery Room Air Room Air 07/07/24 04:00 07/07/24 06:21 07/07/24 07:30 Temperature 98.1 F 98.1 F Pulse Rate 73 74 71 Respiratory Rate 18 18 Blood Pressure 130/74 132/72 Pulse Oximetry 98 98 Oxygen Delivery 07/07/24 08:00 07/07/24 09:52 07/07/24 12:00 Temperature 98.2 F Pulse Rate 74 70 88 Respiratory Rate 16 Blood Pressure 152/113 H Pulse Oximetry 100 Oxygen Delivery 07/07/24 13:21 07/07/24 12:00 07/07/24 13:02 Temperature Pulse Rate 77 Respiratory Rate Blood Pressure Pulse Oximetry Oxygen Delivery Room Air Room Air Intake/Output Intake/Output: Intake & Output 07/04/24 07/05/24 07/06/24 07/07/24 23:59 23:59 23:59 23:59 Intake Total 1233.3 3013.7 1680.0 460 Output Total 2650 2100 1100 Balance 1233.3 363.7 -420.0 -640 Meds/Results Medications: Active Medications Generic Name Dose Route Start Last Admin Trade Name Freq PRN Reason Stop Dose Admin Acetaminophen 650 mg 07/04/24 15:46 Acetaminophen 325 Mg Tablet PO Q4H PRN Mild Pain (1-3) or Fever Hydrocodone Bitart/Acetaminophen 1 tab 07/04/24 15:46 Hydrocodone/Acetaminophen (*Crx) 5-325 Mg Tablet PO Q4H PRN Moderate Pain (4-6) Albuterol/Ipratropium 3 ml 07/05/24 09:53 Ipratropium 0.5 Mg/Albuterol Sulfate 2.5 Mg Ampul.Neb 3 Ml INHALATION Q6HRT PRN Shortness of breath or wheezing Amlodipine Besylate 5 mg 07/05/24 21:00 07/07/24 09:16 Amlodipine Besylate 5 Mg Tablet PO 5 mg DAILY PETE Administration Carbidopa/Levodopa 1 tablet 07/05/24 09:00 07/07/24 09:16 Carbidopa/Levodopa 25/100 Mg Tablet PO 1 tablet TID@0900,1700,2100 PETE Administration Clopidogrel Bisulfate 75 mg 07/06/24 09:00 07/07/24 09:17 Clopidogrel Bisulfate 75 Mg Tablet PO 75 mg DAILY PETE Administration Dextrose 12.5 gm 07/04/24 16:08 07/04/24 18:16 Dextrose 50% 25 Gm/50 Ml Syringe IV PUSH 12.5 gm PRN PRN Administration Hypoglycemia Protocol Finasteride 5 mg 07/07/24 09:00 07/07/24 09:17 Finasteride 5 Mg Tablet PO 5 mg QAM PETE Administration Glucagon 1 mg 07/04/24 16:08 Glucagon For Inj 1 Mg Vial IM PRN PRN Hypoglycemia Protocol Glucose 15 gm 07/04/24 16:08 Glucose Oral Gel 15 Gm Of Glucse In 37.5 Gm Tube PO PRN PRN Hypoglycemia Protocol Heparin Sodium (Porcine) 5,000 units 07/04/24 21:00 07/07/24 09:17 Heparin Sodium 5,000 Units/Ml Vial SUB-Q 5,000 units Q12HR PETE Administration Hydralazine HCl 10 mg 07/04/24 16:40 07/06/24 11:17 Hydralazine Hcl 20 Mg/Ml Vial IV PUSH 10 mg Q8H PRN Administration Blood Pressure - High Hydromorphone HCl 0.5 mg 07/04/24 16:44 Hydromorphone Hcl Inj (*Crx) 1 Mg/Ml Syr IV PUSH Q6HR PRN Pain Rated 7-10 Dextrose 1,000 mls @ 100 mls/hr 07/04/24 16:08 Dextrose 5% 1,000 Ml IVPB PRN PRN Hypoglycemia Protocol Insulin Aspart 1 - 2 units 07/05/24 21:00 07/06/24 21:39 Insulin Aspart (*Bkc) 100 Units/Ml SUB-Q Not Given HS [facility] Protocol Insulin Aspart 2 - 5 units 07/05/24 17:00 07/07/24 11:36 Insulin Aspart (*Bkc) 100 Units/Ml SUB-Q Not Given TIDWM [facility] Protocol Insulin Glargine 10 units 07/05/24 08:50 07/07/24 09:17 Insulin Glargine (*Bkc) 100 Units/Ml SUB-Q 10 units QAM PETE Administration Levetiracetam 250 mg/ 750 mg 07/06/24 21:00 07/07/24 09:16 Levetiracetam 500 mg PO 750 mg Q12HR PETE Administration Ondansetron HCl 4 mg 07/04/24 15:46 Ondansetron Inj 4 Mg/2 Ml Vial IV PUSH Q6H PRN Nausea And Vomiting Pantoprazole Sodium 40 mg 07/07/24 09:00 07/07/24 09:17 Pantoprazole 40 Mg Tablet PO 40 mg QAM PETE Administration Primidone 25 mg 07/05/24 21:00 07/06/24 20:29 Primidone 25 Mg Tablet PO 25 mg HS PETE Administration Tamsulosin HCl 0.4 mg 07/06/24 09:00 07/07/24 09:17 Tamsulosin Hcl 0.4 Mg Capsule PO 0.4 mg DAILY PETE Administration Radiology Results: ITS Impressions Abdomen/Pelvis CT 07/04/24 14:33 IMPRESSION: 1. Bilateral inguinal hernias containing fat. Chest X-Ray 07/06/24 09:40 IMPRESSION: 1. No acute cardiopulmonary disease. MRCP 07/06/24 11:23 IMPRESSION: 1. Worsened acute on chronic pancreatitis. 2. No choledocholithiasis. Labs Labs: Laboratory Results - last 24 hr 07/06/24 07/06/24 07/07/24 16:00 21:15 04:50 WBC 5.8 RBC 4.29 L Hgb 10.9 L Hct 33.6 L MCV 78.3 L MCH 25.4 L MCHC 32.4 RDW 16.0 H Plt Count 179 MPV 8.7 Immature Gran % (Auto) 0.2 Neut % (Auto) 76.5 H Lymph % (Auto) 12.8 L [place] % (Auto) 9.0 H Eos % (Auto) 1.2 Baso % (Auto) 0.3 Lymph # (Auto) 0.74 L [place] # (Auto) 0.5 Eos # (Auto) 0.1 Baso # (Auto) 0.0 Abs Immat Gran (auto) 0.01 Absolute Neuts (auto) 4.4 Absolute Nucleated RBC 0.000 Nucleated RBC % 0.0 Sodium 133 L Potassium 3.4 Chloride 105 Carbon Dioxide 24 Anion Gap 4 BUN 20 Creatinine 1.10 Estim Creat Clear Calc 40 Estimated GFR > 60 Glucose 113 H POC Capillary Glucose 157 H 181 H Calcium 8.8 Phosphorus 3.1 Magnesium 1.9 Total Bilirubin 0.5 AST 18 ALT < 6 L Alkaline Phosphatase 98 Total Protein 6.0 L Albumin 3.1 L Lipase 716 H 07/07/24 07/07/24 06:55 11:17 WBC RBC Hgb Hct MCV MCH MCHC RDW Plt Count MPV Immature Gran % (Auto) Neut % (Auto) Lymph % (Auto) [place] % (Auto) Eos % (Auto) Baso % (Auto) Lymph # (Auto) [place] # (Auto) Eos # (Auto) Baso # (Auto) Abs Immat Gran (auto) Absolute Neuts (auto) Absolute Nucleated RBC Nucleated RBC % Sodium Potassium Chloride Carbon Dioxide Anion Gap BUN Creatinine Estim Creat Clear Calc Estimated GFR Glucose POC Capillary Glucose 111 H 143 H Calcium Phosphorus Magnesium Total Bilirubin AST ALT Alkaline Phosphatase Total Protein Albumin Lipase
[2024-07-07] MEDS: ONDANSETRON INJ 4 MG/2 ML VIAL IV PUSH (16:25)
[2024-07-07 16:53] LABS: Glucose Point of Care 122 mg/dl (65-105)
[2024-07-07] MEDS: PRIMIDONE 25 MG TABLET PO (20:42)
[2024-07-07 20:53] LABS: Glucose Point of Care 153 mg/dl (65-105)
[2024-07-08] VITALS (16 sets, daily range): BP systolic 133–172; BP diastolic 66–91; PULSE 65–106; RESP 18–20; TEMP 36.6–37.3; O2SAT 98–100
[2024-07-08 04:46] LABS: Basophils Percent Auto 0.6 % (0.2-1.2); Eosinophils Percent Auto 0.8 % (0-4.4); Hematocrit 34.1 % (42.0-52.0); Hemoglobin 10.9 g/dL (14.0-18.0); Immature Granulocyte Absolute 0.03 K/mm3 (0.00-0.031); Immature Granulocyte Percent A 0.6 % (0-0.5); Lymphocytes Absolute Auto 0.58 K/mm3 (0.9-3.2); Lymphocytes Percent Auto 11.6 % (18.3-44.2); Mean Corpuscular Hemoglobin 25.4 pg (26-34); Mean Corpuscular Volume 79.5 fl (80-100); Mean Platelet Volume 9.4 fl (7.4-10.4); Monocytes Absolute Auto 0.5 K/mm3 (0.1-0.6); Neutrophils Absolute Auto 3.9 K/mm3 (1.3-6.7); Neutrophils Percent Auto 77.4 % (45.5-73.1); Platelet Count Result 161 k/mm3 (150-375); Red Blood Count 4.29 M/mm3 (4.6-6.20)
[2024-07-08 05:04] LABS: Albumin Level 3.1 g/dL (3.5-5.1); Alkaline Phosphatase 98 U/L (38-126); Anion Gap 5 mmol/L (4-12); Aspartate Amino Transferase 18 U/L (17-59); Bilirubin,Total 0.5 mg/dL (0.2-1.3); Blood Urea Nitrogen 16 mg/dL (9-20); Calcium 8.4 mg/dL (8.4-10.2); Carbon Dioxide 23 mmol/L (22-30); Chloride 103 mmol/L (98-107); Estimated CRCL calculation 40 ml/min; Estimated Glomerular Filt Rate > 60; Glucose 108 mg/dL (65-110); Potassium 3.5 mmol/L (3.4-5.0); Sodium 131 mmol/L (137-145)
[2024-07-08 05:05] LABS: Lipase 472 U/L (23-300)
[2024-07-08 05:30] LABS: Alanine Aminotransferase < 6 U/L (6-50)
[2024-07-08 08:12] LABS: Glucose Point of Care 99 mg/dl (65-105)
[2024-07-08] MEDS: FINASTERIDE 5 MG TABLET PO (09:59)
[2024-07-08] MEDS: PANTOPRAZOLE 40 MG TABLET PO (09:59)
[2024-07-08] MEDS: CARBIDOPA/LEVODOPA 25/100 MG TABLET 1 TABLET PO ×3 (09:59→20:01)
[2024-07-08] MEDS: TAMSULOSIN HCL 0.4 MG CAPSULE PO (09:59)
[2024-07-08] MEDS: CLOPIDOGREL BISULFATE 75 MG TABLET PO (09:59)
[2024-07-08] MEDS: amLODIPine BESYLATE 5 MG TABLET PO (09:59)
[2024-07-08] MEDS: levETIRAcetam Tablet 250 MG, levETIRAcetam Tablet 500 MG 750 MG PO ×2 (09:59→20:01)
[2024-07-08] MEDS: INSULIN GLARGINE (*BKC) 100 UNITS/ML 10 UNITS SUB-Q (10:00)
[2024-07-08] MEDS: HEPARIN SODIUM 5,000 UNITS/ML VIAL 5000 UNITS SUB-Q ×2 (10:00→20:06)
--- NOTE | 2024-07-08 11:25 | PCNFU ---
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 Meet estimated nutritional needs. - progressing toward goal. Intakes 10-30% last 48 h, with improvement to 75% breakfast Goal: Pt current nutrition is Diabetic consistent carb, Minced & moist L5. Glucerna TID for additional 220 kcal and 10 g protein each. Nutrition recommendation: No new nutrition recommendations. Continue with current nutrition care plan and orders. Agree with orders Last recorded weight is 70 kg. Bowel Motility: +3 BMs 07/05/24 Labs Reviewed: Hgb 10.9,, Hct 34.1, Alb 3.1, Na 131 Meds Noted: insulin, zofran, protonix Skin: No pressure injuries Additional Notes: Intakes are progressing. Continue current care plan. Will monitor weight, labs, skin, oral intake, meds every 3 days.
[2024-07-08 12:01] LABS: Glucose Point of Care 217 mg/dl (65-105)
[2024-07-08] MEDS: INSULIN ASPART (*BKC) 100 UNITS/ML SUB-Q ×2 (12:27→20:18)
--- NOTE | 2024-07-08 14:15 | P.PNGI_ITS ---
Progress Note: A&P Assessment and Plan (1) Acute on chronic pancreatitis: Code(s): K85.90 - Acute pancreatitis without necrosis or infection, unspecified; K86.1 - Other chronic pancreatitis Status: Acute Assessment and Plan: he is eating more, denies pain will follow as needed (2) DKA (diabetic ketoacidosis): Code(s): E11.10 - Type 2 diabetes mellitus with ketoacidosis without coma Status: Acute Assessment and Plan: resolved on medical management now (3) Chronic kidney disease, stage 3: Code(s): N18.30 - Chronic kidney disease, stage 3 unspecified Status: Acute (4) Abdominal pain: Code(s): R10.9 - Unspecified abdominal pain Status: Acute Assessment and Plan: resolved Subjective Date/time seen: 07/08/24 14:15 Interval history: he is in better spirits and up to chair Review of Systems Review of Systems: All systems reviewed & are unremarkable except as noted in HPI and below Exam Narrative: Gen - NARD neck supple Chest - lungs clear anteriorly, nml RR CV - RRR S1/S2. Tele showing PVCs Abd - Soft, NT/ND, Positive BS - Mcclain secured draining clear yellow urine Ext - No pedal edema Neuro - Alert and oriented. Psych - speech/cognition is slow but clear. Skin - Warm and dry Objective Data Vital Signs Vital Signs: Vital Signs - 24 hr 07/07/24 16:00 07/07/24 16:00 07/07/24 18:00 Temperature 99.1 F Pulse Rate 75 80 80 Respiratory Rate 16 Blood Pressure 147/68 H Pulse Oximetry 100 Oxygen Delivery 07/07/24 20:00 07/07/24 20:00 07/07/24 20:00 Temperature 97.6 F Pulse Rate 78 78 73 Respiratory Rate 18 18 Blood Pressure 148/76 H Pulse Oximetry 100 100 Oxygen Delivery Room Air 07/07/24 22:21 07/07/24 23:55 07/08/24 00:00 Temperature 97.7 F Pulse Rate 75 70 70 Respiratory Rate 18 18 Blood Pressure 131/72 Pulse Oximetry 100 100 Oxygen Delivery Room Air 07/08/24 00:00 07/08/24 02:14 07/08/24 04:00 Temperature Pulse Rate 70 67 67 Respiratory Rate 18 Blood Pressure Pulse Oximetry 100 Oxygen Delivery Room Air 07/08/24 04:00 07/08/24 05:35 07/08/24 06:00 Temperature 97.8 F Pulse Rate 68 65 68 Respiratory Rate 18 Blood Pressure 145/66 H Pulse Oximetry 98 Oxygen Delivery 07/08/24 08:00 07/08/24 12:00 07/08/24 08:00 Temperature 98.5 F 98.1 F Pulse Rate 65 69 71 Respiratory Rate 20 18 Blood Pressure 172/78 H 169/91 H Pulse Oximetry 100 100 Oxygen Delivery 07/08/24 10:00 07/08/24 12:00 07/08/24 13:57 Temperature Pulse Rate 74 85 Respiratory Rate Blood Pressure 133/78 Pulse Oximetry Oxygen Delivery Intake/Output Intake/Output: Intake & Output 07/05/24 07/06/24 07/07/24 07/08/24 23:59 23:59 23:59 23:59 Intake Total 3013.7 1680.0 1050 590 Output Total 2650 2100 1775 400 Balance 363.7 -420.0 -725 190 Meds/Results Medications: Active Medications Generic Name Dose Route Start Last Admin Trade Name Freq PRN Reason Stop Dose Admin Acetaminophen 650 mg 07/04/24 15:46 Acetaminophen 325 Mg Tablet PO Q4H PRN Mild Pain (1-3) or Fever Hydrocodone Bitart/Acetaminophen 1 tab 07/04/24 15:46 Hydrocodone/Acetaminophen (*Crx) 5-325 Mg Tablet PO Q4H PRN Moderate Pain (4-6) Albuterol/Ipratropium 3 ml 07/05/24 09:53 Ipratropium 0.5 Mg/Albuterol Sulfate 2.5 Mg Ampul.Neb 3 Ml INHALATION Q6HRT PRN Shortness of breath or wheezing Amlodipine Besylate 5 mg 07/05/24 21:00 07/08/24 09:59 Amlodipine Besylate 5 Mg Tablet PO 5 mg DAILY PETE Administration Carbidopa/Levodopa 1 tablet 07/05/24 09:00 07/08/24 09:59 Carbidopa/Levodopa 25/100 Mg Tablet PO 1 tablet TID@0900,1700,2100 PETE Administration Clopidogrel Bisulfate 75 mg 07/06/24 09:00 07/08/24 09:59 Clopidogrel Bisulfate 75 Mg Tablet PO 75 mg DAILY PETE Administration Dextrose 12.5 gm 07/04/24 16:08 07/04/24 18:16 Dextrose 50% 25 Gm/50 Ml Syringe IV PUSH 12.5 gm PRN PRN Administration Hypoglycemia Protocol Finasteride 5 mg 07/07/24 09:00 07/08/24 09:59 Finasteride 5 Mg Tablet PO 5 mg QAM PETE Administration Glucagon 1 mg 07/04/24 16:08 Glucagon For Inj 1 Mg Vial IM PRN PRN Hypoglycemia Protocol Glucose 15 gm 07/04/24 16:08 Glucose Oral Gel 15 Gm Of Glucse In 37.5 Gm Tube PO PRN PRN Hypoglycemia Protocol Heparin Sodium (Porcine) 5,000 units 07/04/24 21:00 07/08/24 10:00 Heparin Sodium 5,000 Units/Ml Vial SUB-Q 5,000 units Q12HR PETE Administration Hydralazine HCl 10 mg 07/04/24 16:40 07/06/24 11:17 Hydralazine Hcl 20 Mg/Ml Vial IV PUSH 10 mg Q8H PRN Administration Blood Pressure - High Hydromorphone HCl 0.5 mg 07/04/24 16:44 Hydromorphone Hcl Inj (*Crx) 1 Mg/Ml Syr IV PUSH Q6HR PRN Pain Rated 7-10 Dextrose 1,000 mls @ 100 mls/hr 07/04/24 16:08 Dextrose 5% 1,000 Ml IVPB PRN PRN Hypoglycemia Protocol Insulin Aspart 1 - 2 units 07/05/24 21:00 07/08/24 00:06 Insulin Aspart (*Bkc) 100 Units/Ml SUB-Q Not Given HS PETE Protocol Insulin Aspart 2 - 5 units 07/05/24 17:00 07/08/24 12:27 Insulin Aspart (*Bkc) 100 Units/Ml SUB-Q 2 units TIDWM PETE Administration Protocol Insulin Glargine 10 units 07/05/24 08:50 07/08/24 10:00 Insulin Glargine (*Bkc) 100 Units/Ml SUB-Q 10 units QAM PETE Administration Levetiracetam 250 mg/ 750 mg 07/06/24 21:00 07/08/24 09:59 Levetiracetam 500 mg PO 750 mg Q12HR PETE Administration Ondansetron HCl 4 mg 07/04/24 15:46 07/07/24 16:25 Ondansetron Inj 4 Mg/2 Ml Vial IV PUSH 4 mg Q6H PRN Administration Nausea And Vomiting Pantoprazole Sodium 40 mg 07/07/24 09:00 07/08/24 09:59 Pantoprazole 40 Mg Tablet PO 40 mg QAM PETE Administration Primidone 25 mg 07/05/24 21:00 07/07/24 20:42 Primidone 25 Mg Tablet PO 25 mg HS PETE Administration Tamsulosin HCl 0.4 mg 07/06/24 09:00 07/08/24 09:59 Tamsulosin Hcl 0.4 Mg Capsule PO 0.4 mg DAILY PETE Administration Radiology Results: ITS Impressions Abdomen/Pelvis CT 07/04/24 14:33 IMPRESSION: 1. Bilateral inguinal hernias containing fat. Chest X-Ray 07/06/24 09:40 IMPRESSION: 1. No acute cardiopulmonary disease. MRCP 07/06/24 11:23 IMPRESSION: 1. Worsened acute on chronic pancreatitis. 2. No choledocholithiasis. Labs Labs: Laboratory Results - last 24 hr 07/07/24 07/07/24 07/08/24 16:43 20:49 04:14 WBC 5.0 RBC 4.29 L Hgb 10.9 L Hct 34.1 L MCV 79.5 L MCH 25.4 L MCHC 32.0 RDW 16.0 H Plt Count 161 MPV 9.4 Immature Gran % (Auto) 0.6 H Neut % (Auto) 77.4 H Lymph % (Auto) 11.6 L [place] % (Auto) 9.0 H Eos % (Auto) 0.8 Baso % (Auto) 0.6 Lymph # (Auto) 0.58 L [place] # (Auto) 0.5 Eos # (Auto) 0.0 Baso # (Auto) 0.0 Abs Immat Gran (auto) 0.03 Absolute Neuts (auto) 3.9 Absolute Nucleated RBC 0.000 Nucleated RBC % 0.0 Sodium 131 L Potassium 3.5 Chloride 103 Carbon Dioxide 23 Anion Gap 5 BUN 16 Creatinine 1.10 Estim Creat Clear Calc 40 Estimated GFR > 60 Glucose 108 POC Capillary Glucose 122 H 153 H Calcium 8.4 Total Bilirubin 0.5 AST 18 ALT < 6 L Alkaline Phosphatase 98 Total Protein 6.0 L Albumin 3.1 L Lipase 472 H 07/08/24 07/08/24 07:25 11:28 WBC RBC Hgb Hct MCV MCH MCHC RDW Plt Count MPV Immature Gran % (Auto) Neut % (Auto) Lymph % (Auto) [place] % (Auto) Eos % (Auto) Baso % (Auto) Lymph # (Auto) [place] # (Auto) Eos # (Auto) Baso # (Auto) Abs Immat Gran (auto) Absolute Neuts (auto) Absolute Nucleated RBC Nucleated RBC % Sodium Potassium Chloride Carbon Dioxide Anion Gap BUN Creatinine Estim Creat Clear Calc Estimated GFR Glucose POC Capillary Glucose 99 217 H Calcium Total Bilirubin AST ALT Alkaline Phosphatase Total Protein Albumin Lipase
--- NOTE | 2024-07-08 15:04 | PM.IMPN ---
Progress Note: A&P Assessment and Plan (1) DKA (diabetic ketoacidosis): Qualifiers: Diabetes mellitus complication detail: without coma Diabetes mellitus type: type 2 Qualified Code(s): E11.10 - Type 2 diabetes mellitus with ketoacidosis without coma Code(s): E11.10 - Type 2 diabetes mellitus with ketoacidosis without coma Status: Acute Assessment and Plan: Patient presents with nausea and found to have DKA. Glucose was 177 but serum bicarb 7, AG 30 and BHOB 11. He had SCARLETT. Pt was given IVF bolus and started on insulin infusion through the DKA protocol. Serial labs performed and his anion gap closed. He was transitioned to subcutaneous insulin and weaned off insulin drip and IV fluids early childhood educator aide and dietitian were consulted ST with bedside evaluation recommended minced and moist Level 5 with thin liquids. Diet started. Continue Lantus. Continue to hold empagliflozin and sitagliptin. (2) Acute on chronic pancreatitis: Code(s): K85.90 - Acute pancreatitis without necrosis or infection, unspecified; K86.1 - Other chronic pancreatitis Status: Acute Assessment and Plan: Patient has acute on chronic pancreatitis. He has been evaluated in the past and his MRCP that has shown multiple cystic lesions in the pancreas. His lipase was elevated at 1874 but he denies any abdominal pain. CT scan of the abdomen shows cystic pancreatic lesions and calcifications suggestive of chronic pancreatitis MRCP showing worsened acute on chronic pancreatitis. No choledocholithiasis or cholelithiasis. GI consulted Lipase trending down. Tolerating oral intake. Check TG Follow (3) SCARLETT (acute kidney injury): Code(s): N17.9 - Acute kidney failure, unspecified Status: Resolved Assessment and Plan: Patient has CKD with baseline Cr 1.4-1.5. Cr on admission was 2.2 likely secondary to DKA, hypovolemia and dehydration Treated with IV fluids CT Abd showing renal cysts, severely enlarged prostate with diffuse bladder wall thickening. No evidence of renal stones. Mcclain placed for retention Cr trending down to baseline. Cr 1.1 today. Nephrology consulted and appreciate their input. Good urine output. Continue Flomax. Proscar added. Off IV fluids now. voiding trial (4) Seizure disorder: Code(s): G40.909 - Epilepsy, unspecified, not intractable, without status epilepticus Status: Acute Assessment and Plan: Stable. Continue Keppra (5) COPD (chronic obstructive pulmonary disease): Code(s): J44.9 - Chronic obstructive pulmonary disease, unspecified Status: Chronic Assessment and Plan: Lungs clear. No COPD exacerbation. Continue bronchodilators prn. (6) BPH (benign prostatic hyperplasia): Code(s): N40.0 - Benign prostatic hyperplasia without lower urinary tract symptoms Status: Acute Assessment and Plan: Patient had a Mcclain placed due to urinary retention. He has some hematuria felt to be traumatic Tamsulosin resumed and Proscar added Mcclain trial today but may need to be home with Mcclain. (7) Parkinson disease: Qualifiers: Dyskinesia presence: unspecified whether dyskinesia Fluctuating manifestations: unspecified whether manifestations fluctuate Qualified Code(s): G20.A1 - Parkinson's disease without dyskinesia, without mention of fluctuations Code(s): G20 - Parkinson's disease Status: Acute Assessment and Plan: Stable. Sinemet and primidone resumed. PT/OT ordered (8) CAD (coronary artery disease): Code(s): I25.10 - Atherosclerotic heart disease of [place] coronary artery without angina pectoris Status: Acute Assessment and Plan: Patient with hx of CAD. Not on statin, ASA or beta-servando. Plavix resumed. (9) Diabetes: Qualifiers: Diabetes mellitus type: type 2 Diabetes mellitus manager wound insulin use: without manager wound use Diabetes mellitus complication status: with neurologic complications Diabetes mellitus complication detail: with unspecified neuropathy Qualified Code(s): E11.40 - Type 2 diabetes mellitus with diabetic neuropathy, unspecified Code(s): E11.9 - Type 2 diabetes mellitus without complications Status: Acute Assessment and Plan: As above (10) UTI (urinary tract infection): Code(s): N39.0 - Urinary tract infection, site not specified Status: Acute Assessment and Plan: UA is consistent with UTI. UCx collected. Abx started. UCx mixed genital rajani. BCx NGTD. CXR clear and CT A/P showing no acute findings. No indiction for abx so will stop UTI ruled out Plan DVT prophylaxis - Heparin Code Status - patient is DNR Subjective Date/time seen: 07/08/24 15:04 Interval history: 88yo male with TIAs, asthma, blindness, DM and Parkinson's, brought in by EMS from home for nausea and vomiting for the past 2 days. Slept poorly. Was restless overnight. Eating okay. No CP or SOB. No abd pain. Exam Narrative: AF 98.1 133/78 90 18 100% ra Gen - NARD sitting up in chair Chest - bibasilar crackles q/w clear. CV - RRR S1/S2. Tele showing PACs Abd - Soft, NT/ND, Positive BS - Mcclain secured draining clear yellow urine Ext - No pedal edema Psych - normal mood and affect Skin - Warm and dry. multiple raised, dried eschars noted head and upper extremities. Objective Data Vital Signs Vital Signs: Vital Signs - 24 hr 07/07/24 16:00 07/07/24 16:00 07/07/24 18:00 Temperature 99.1 F Pulse Rate 75 80 80 Respiratory Rate 16 Blood Pressure 147/68 H Pulse Oximetry 100 Oxygen Delivery 07/07/24 20:00 07/07/24 20:00 07/07/24 20:00 Temperature 97.6 F Pulse Rate 78 78 73 Respiratory Rate 18 18 Blood Pressure 148/76 H Pulse Oximetry 100 100 Oxygen Delivery Room Air 07/07/24 22:21 07/07/24 23:55 07/08/24 00:00 Temperature 97.7 F Pulse Rate 75 70 70 Respiratory Rate 18 18 Blood Pressure 131/72 Pulse Oximetry 100 100 Oxygen Delivery Room Air 07/08/24 00:00 07/08/24 02:14 07/08/24 04:00 Temperature Pulse Rate 70 67 67 Respiratory Rate 18 Blood Pressure Pulse Oximetry 100 Oxygen Delivery Room Air 07/08/24 04:00 07/08/24 05:35 07/08/24 06:00 Temperature 97.8 F Pulse Rate 68 65 68 Respiratory Rate 18 Blood Pressure 145/66 H Pulse Oximetry 98 Oxygen Delivery 07/08/24 08:00 07/08/24 12:00 07/08/24 08:00 Temperature 98.5 F 98.1 F Pulse Rate 65 69 71 Respiratory Rate 20 18 Blood Pressure 172/78 H 169/91 H Pulse Oximetry 100 100 Oxygen Delivery 07/08/24 10:00 07/08/24 12:00 07/08/24 13:57 Temperature Pulse Rate 74 85 Respiratory Rate Blood Pressure 133/78 Pulse Oximetry Oxygen Delivery 07/08/24 14:00 Temperature Pulse Rate 90 Respiratory Rate Blood Pressure Pulse Oximetry Oxygen Delivery Intake/Output Intake/Output: Intake & Output 07/05/24 07/06/24 07/07/24 07/08/24 23:59 23:59 23:59 23:59 Intake Total 3013.7 1680.0 1050 590 Output Total 2650 2100 1775 400 Balance 363.7 -420.0 -725 190 Meds/Results Medications: Active Medications Generic Name Dose Route Start Last Admin Trade Name Freq PRN Reason Stop Dose Admin Acetaminophen 650 mg 07/04/24 15:46 Acetaminophen 325 Mg Tablet PO Q4H PRN Mild Pain (1-3) or Fever Hydrocodone Bitart/Acetaminophen 1 tab 07/04/24 15:46 Hydrocodone/Acetaminophen (*Crx) 5-325 Mg Tablet PO Q4H PRN Moderate Pain (4-6) Albuterol/Ipratropium 3 ml 07/05/24 09:53 Ipratropium 0.5 Mg/Albuterol Sulfate 2.5 Mg Ampul.Neb 3 Ml INHALATION Q6HRT PRN Shortness of breath or wheezing Amlodipine Besylate 5 mg 07/05/24 21:00 07/08/24 09:59 Amlodipine Besylate 5 Mg Tablet PO 5 mg DAILY PETE Administration Carbidopa/Levodopa 1 tablet 07/05/24 09:00 07/08/24 09:59 Carbidopa/Levodopa 25/100 Mg Tablet PO 1 tablet TID@0900,1700,2100 PETE Administration Clopidogrel Bisulfate 75 mg 07/06/24 09:00 07/08/24 09:59 Clopidogrel Bisulfate 75 Mg Tablet PO 75 mg DAILY PETE Administration Dextrose 12.5 gm 07/04/24 16:08 07/04/24 18:16 Dextrose 50% 25 Gm/50 Ml Syringe IV PUSH 12.5 gm PRN PRN Administration Hypoglycemia Protocol Finasteride 5 mg 07/07/24 09:00 07/08/24 09:59 Finasteride 5 Mg Tablet PO 5 mg QAM PETE Administration Glucagon 1 mg 07/04/24 16:08 Glucagon For Inj 1 Mg Vial IM PRN PRN Hypoglycemia Protocol Glucose 15 gm 07/04/24 16:08 Glucose Oral Gel 15 Gm Of Glucse In 37.5 Gm Tube PO PRN PRN Hypoglycemia Protocol Heparin Sodium (Porcine) 5,000 units 07/04/24 21:00 07/08/24 10:00 Heparin Sodium 5,000 Units/Ml Vial SUB-Q 5,000 units Q12HR PETE Administration Hydralazine HCl 10 mg 07/04/24 16:40 07/06/24 11:17 Hydralazine Hcl 20 Mg/Ml Vial IV PUSH 10 mg Q8H PRN Administration Blood Pressure - High Hydromorphone HCl 0.5 mg 07/04/24 16:44 Hydromorphone Hcl Inj (*Crx) 1 Mg/Ml Syr IV PUSH Q6HR PRN Pain Rated 7-10 Dextrose 1,000 mls @ 100 mls/hr 07/04/24 16:08 Dextrose 5% 1,000 Ml IVPB PRN PRN Hypoglycemia Protocol Insulin Aspart 1 - 2 units 07/05/24 21:00 07/08/24 00:06 Insulin Aspart (*Bkc) 100 Units/Ml SUB-Q Not Given HS PETE Protocol Insulin Aspart 2 - 5 units 07/05/24 17:00 07/08/24 12:27 Insulin Aspart (*Bkc) 100 Units/Ml SUB-Q 2 units TIDWM PETE Administration Protocol Insulin Glargine 10 units 07/05/24 08:50 07/08/24 10:00 Insulin Glargine (*Bkc) 100 Units/Ml SUB-Q 10 units QAM PETE Administration Levetiracetam 250 mg/ 750 mg 07/06/24 21:00 07/08/24 09:59 Levetiracetam 500 mg PO 750 mg Q12HR PETE Administration Ondansetron HCl 4 mg 07/04/24 15:46 07/07/24 16:25 Ondansetron Inj 4 Mg/2 Ml Vial IV PUSH 4 mg Q6H PRN Administration Nausea And Vomiting Pantoprazole Sodium 40 mg 07/07/24 09:00 07/08/24 09:59 Pantoprazole 40 Mg Tablet PO 40 mg QAM PETE Administration Primidone 25 mg 07/05/24 21:00 07/07/24 20:42 Primidone 25 Mg Tablet PO 25 mg HS PETE Administration Tamsulosin HCl 0.4 mg 07/06/24 09:00 07/08/24 09:59 Tamsulosin Hcl 0.4 Mg Capsule PO 0.4 mg DAILY PETE Administration Radiology Results: ITS Impressions Abdomen/Pelvis CT 07/04/24 14:33 IMPRESSION: 1. Bilateral inguinal hernias containing fat. Chest X-Ray 07/06/24 09:40 IMPRESSION: 1. No acute cardiopulmonary disease. MRCP 07/06/24 11:23 IMPRESSION: 1. Worsened acute on chronic pancreatitis. 2. No choledocholithiasis. Labs Labs: Laboratory Results - last 24 hr 07/07/24 07/07/24 07/08/24 16:43 20:49 04:14 WBC 5.0 RBC 4.29 L Hgb 10.9 L Hct 34.1 L MCV 79.5 L MCH 25.4 L MCHC 32.0 RDW 16.0 H Plt Count 161 MPV 9.4 Immature Gran % (Auto) 0.6 H Neut % (Auto) 77.4 H Lymph % (Auto) 11.6 L [place] % (Auto) 9.0 H Eos % (Auto) 0.8 Baso % (Auto) 0.6 Lymph # (Auto) 0.58 L [place] # (Auto) 0.5 Eos # (Auto) 0.0 Baso # (Auto) 0.0 Abs Immat Gran (auto) 0.03 Absolute Neuts (auto) 3.9 Absolute Nucleated RBC 0.000 Nucleated RBC % 0.0 Sodium 131 L Potassium 3.5 Chloride 103 Carbon Dioxide 23 Anion Gap 5 BUN 16 Creatinine 1.10 Estim Creat Clear Calc 40 Estimated GFR > 60 Glucose 108 POC Capillary Glucose 122 H 153 H Calcium 8.4 Total Bilirubin 0.5 AST 18 ALT < 6 L Alkaline Phosphatase 98 Total Protein 6.0 L Albumin 3.1 L Lipase 472 H 07/08/24 07/08/24 07:25 11:28 WBC RBC Hgb Hct MCV MCH MCHC RDW Plt Count MPV Immature Gran % (Auto) Neut % (Auto) Lymph % (Auto) [place] % (Auto) Eos % (Auto) Baso % (Auto) Lymph # (Auto) [place] # (Auto) Eos # (Auto) Baso # (Auto) Abs Immat Gran (auto) Absolute Neuts (auto) Absolute Nucleated RBC Nucleated RBC % Sodium Potassium Chloride Carbon Dioxide Anion Gap BUN Creatinine Estim Creat Clear Calc Estimated GFR Glucose POC Capillary Glucose 99 217 H Calcium Total Bilirubin AST ALT Alkaline Phosphatase Total Protein Albumin Lipase
[2024-07-08 16:18] LABS: Glucose Point of Care 181 mg/dl (65-105)
[2024-07-08] MEDS: PRIMIDONE 25 MG TABLET PO (20:01)
[2024-07-08 20:20] LABS: Glucose Point of Care 208 mg/dl (65-105)
[2024-07-09] VITALS (10 sets, daily range): BP systolic 131–168; BP diastolic 71–79; PULSE 70–100; RESP 16–20; TEMP 35.7–37.7; O2SAT 95–100
[2024-07-09 07:39] LABS: Glucose Point of Care 142 mg/dl (65-105)
[2024-07-09 08:09] LABS: Alanine Aminotransferase 6 U/L (6-50); Albumin Level 3.3 g/dL (3.5-5.1); Alkaline Phosphatase 104 U/L (38-126); Anion Gap 4 mmol/L (4-12); Aspartate Amino Transferase 22 U/L (17-59); Bilirubin,Total 0.5 mg/dL (0.2-1.3); Blood Urea Nitrogen 20 mg/dL (9-20); Carbon Dioxide 27 mmol/L (22-30); Chloride 100 mmol/L (98-107); Estimated CRCL calculation 37 ml/min; Estimated Glomerular Filt Rate 57; Glucose 138 mg/dL (65-110); Lipase 402 U/L (23-300); Potassium 3.9 mmol/L (3.4-5.0); Sodium 131 mmol/L (137-145); Triglycerides 118 mg/dL (<150)
[2024-07-09 09:21] LABS: Basophils Percent Auto 0.3 % (0.2-1.2); Eosinophils Absolute Auto 0.1 K/mm3 (0-0.3); Eosinophils Percent Auto 2.1 % (0-4.4); Hematocrit 34.8 % (42.0-52.0); Hemoglobin 11.3 g/dL (14.0-18.0); Immature Granulocyte Absolute 0.03 K/mm3 (0.00-0.031); Immature Granulocyte Percent A 0.5 % (0-0.5); Lymphocytes Absolute Auto 0.52 K/mm3 (0.9-3.2); Lymphocytes Percent Auto 8.3 % (18.3-44.2); Mean Corpuscular HGB Conc 32.5 g/dl (32-36); Mean Corpuscular Hemoglobin 25.7 pg (26-34); Mean Corpuscular Volume 79.3 fl (80-100); Mean Platelet Volume 9.5 fl (7.4-10.4); Monocytes Absolute Auto 0.5 K/mm3 (0.1-0.6); Monocytes Percent Auto 8.2 % (2.6-8.5); Neutrophils Percent Auto 80.6 % (45.5-73.1); Platelet Count Result 168 k/mm3 (150-375); Red Blood Count 4.39 M/mm3 (4.6-6.20); Red Cell Distribution Width 15.9 % (11.5-14.5); White Blood Count 6.2 K/mm3 (4.5-10.0)
[2024-07-09] MEDS: INSULIN GLARGINE (*BKC) 100 UNITS/ML 10 UNITS SUB-Q (09:22)
[2024-07-09] MEDS: CARBIDOPA/LEVODOPA 25/100 MG TABLET 1 TABLET PO ×3 (09:22→21:32)
[2024-07-09] MEDS: TAMSULOSIN HCL 0.4 MG CAPSULE PO (09:22)
[2024-07-09] MEDS: amLODIPine BESYLATE 5 MG TABLET PO (09:22)
[2024-07-09] MEDS: FINASTERIDE 5 MG TABLET PO (09:22)
[2024-07-09] MEDS: levETIRAcetam Tablet 250 MG, levETIRAcetam Tablet 500 MG 750 MG PO ×2 (09:22→21:32)
[2024-07-09] MEDS: PANTOPRAZOLE 40 MG TABLET PO (09:22)
[2024-07-09] MEDS: CLOPIDOGREL BISULFATE 75 MG TABLET PO (10:19)
--- NOTE | 2024-07-09 11:20 | PC.NURSE ---
This patient, Fabien Tanner, was received from IMU on 07/09/24 at 1120. Patient/family oriented to unit policies and routines.
--- NOTE | 2024-07-09 11:33 | PC.NURSE ---
This patient, Fabien Tanner, was transferred to [[id number] ] on 07/09/24 at 1115 Personal belongings sent with patient. Report given to [Joan ]. Appropriate documentation sent with patient.
[2024-07-09 11:58] LABS: Glucose Point of Care 258 mg/dl (65-105)
[2024-07-09] MEDS: INSULIN ASPART (*BKC) 100 UNITS/ML SUB-Q (13:09)
[2024-07-09] MEDS: hydrALAZINE HCL 20 MG/ML VIAL 10 MG IV PUSH (16:27)
[2024-07-09 16:37] LABS: Glucose Point of Care 193 mg/dl (65-105)
[2024-07-09] MEDS: ONDANSETRON INJ 4 MG/2 ML VIAL IV PUSH (18:10)
[2024-07-09] MEDS: ACETAMINOPHEN 325 MG TABLET 650 MG PO (18:20)
--- NOTE | 2024-07-09 18:59 | PM.IMPN ---
Progress Note: A&P Assessment and Plan (1) DKA (diabetic ketoacidosis): Qualifiers: Diabetes mellitus complication detail: without coma Diabetes mellitus type: type 2 Qualified Code(s): E11.10 - Type 2 diabetes mellitus with ketoacidosis without coma Code(s): E11.10 - Type 2 diabetes mellitus with ketoacidosis without coma Status: Acute Assessment and Plan: Patient presented with nausea and found to have DKA. Glucose was 177 but serum bicarb 7, AG 30 and BHOB 11. He had SCARLETT. Pt was given IVF bolus and started on insulin infusion through the DKA protocol. Serial labs performed and his anion gap closed. He was transitioned to subcutaneous insulin and weaned off insulin drip and IV fluids meat grading machine operator and dietitian were consulted ST with bedside evaluation recommended minced and moist Level 5 with thin liquids. Diet started. Continue Lantus. Continue to hold empagliflozin and sitagliptin. (2) Acute on chronic pancreatitis: Code(s): K85.90 - Acute pancreatitis without necrosis or infection, unspecified; K86.1 - Other chronic pancreatitis Status: Acute Assessment and Plan: Patient has acute on chronic pancreatitis. He has been evaluated in the past and his MRCP that has shown multiple cystic lesions in the pancreas. His lipase was elevated at 1874 but he denies any abdominal pain. CT scan of the abdomen shows cystic pancreatic lesions and calcifications suggestive of chronic pancreatitis MRCP showing worsened acute on chronic pancreatitis. No choledocholithiasis or cholelithiasis. TG level normal. Related to sitagliptin? GI consulted Lipase trending down. Tolerating oral intake. Follow (3) SCARLETT (acute kidney injury): Code(s): N17.9 - Acute kidney failure, unspecified Status: Resolved Assessment and Plan: Patient has CKD with baseline Cr 1.4-1.5. Cr on admission was 2.2 likely secondary to DKA, hypovolemia and dehydration Treated with IV fluids CT Abd showing renal cysts, severely enlarged prostate with diffuse bladder wall thickening. No evidence of renal stones. Mcclain placed for retention Cr trending down to baseline. Cr 1.2 today. Nephrology consulted and appreciate their input. Good urine output. Continue Flomax and Proscar (4) Seizure disorder: Code(s): G40.909 - Epilepsy, unspecified, not intractable, without status epilepticus Status: Acute Assessment and Plan: Stable. Continue Keppra (5) COPD (chronic obstructive pulmonary disease): Code(s): J44.9 - Chronic obstructive pulmonary disease, unspecified Status: Chronic Assessment and Plan: Lungs clear. No COPD exacerbation. Continue bronchodilators prn. (6) BPH (benign prostatic hyperplasia): Code(s): N40.0 - Benign prostatic hyperplasia without lower urinary tract symptoms Status: Acute Assessment and Plan: Patient had a Mcclain placed due to urinary retention. He has some hematuria felt to be traumatic Tamsulosin resumed and Proscar added Mcclain removed but began to have hematuria. May have had a traumatic Mcclain placement on admission (see UA) that the tubing had tamponaded off the trauma but resumed bleeding when Mcclain removed. Mcclain replaced. Plan for patient to be discharged with Mcclain and voiding trial in 1-2 weeks. (7) Parkinson disease: Qualifiers: Dyskinesia presence: unspecified whether dyskinesia Fluctuating manifestations: unspecified whether manifestations fluctuate Qualified Code(s): G20.A1 - Parkinson's disease without dyskinesia, without mention of fluctuations Code(s): G20 - Parkinson's disease Status: Acute Assessment and Plan: Stable. Sinemet and primidone resumed. PT/OT ordered (8) CAD (coronary artery disease): Code(s): I25.10 - Atherosclerotic heart disease of [place] coronary artery without angina pectoris Status: Acute Assessment and Plan: Patient with hx of CAD. Not on statin, ASA or beta-servando. Plavix resumed. (9) Diabetes: Qualifiers: Diabetes mellitus complication detail: with unspecified neuropathy Diabetes mellitus complication status: with neurologic complications Diabetes mellitus long haul truck driver insulin use: without long haul truck driver use Diabetes mellitus type: type 2 Qualified Code(s): E11.40 - Type 2 diabetes mellitus with diabetic neuropathy, unspecified Code(s): E11.9 - Type 2 diabetes mellitus without complications Status: Acute Assessment and Plan: As above (10) UTI (urinary tract infection): Code(s): N39.0 - Urinary tract infection, site not specified Status: Acute Assessment and Plan: UA is consistent with UTI. UCx collected. Abx started. UCx mixed genital rajani. BCx NGTD. CXR clear and CT A/P showing no acute findings. No indiction for abx so will stop UTI ruled out Plan DVT prophylaxis - Heparin Code Status - patient is DNR Subjective Date/time seen: 07/09/24 18:59 Interval history: 88yo male with TIAs, asthma, blindness, DM and Parkinson's, brought in by EMS from home for nausea and vomiting for the past 2 days. No CP or SOB. No n/v. No abd pain. Exam Narrative: AF 99.5 143/71 78 16 100% ra Gen - NARD sitting up in chair Chest - clear bilaterally CV - RRR S1/S2 Abd - Soft, NT/ND, Positive BS - Mcclain secured draining blood tinged urine Ext - No pedal edema Psych - normal mood and affect Skin - Warm and dry. multiple raised, dried eschars noted head and upper extremities. Objective Data Vital Signs Vital Signs: Vital Signs - 24 hr 07/08/24 20:00 07/08/24 20:00 07/08/24 20:42 Temperature 98.4 F Pulse Rate 79 81 79 Respiratory Rate 20 20 Blood Pressure 141/75 H Pulse Oximetry 100 100 Oxygen Delivery Room Air 07/08/24 22:17 07/08/24 23:27 07/09/24 00:00 Temperature 98.1 F Pulse Rate 70 74 74 Respiratory Rate 20 20 Blood Pressure 134/75 Pulse Oximetry 100 100 Oxygen Delivery Room Air 07/09/24 00:00 07/09/24 01:53 07/09/24 08:00 Temperature 98.2 F Pulse Rate 79 70 72 Respiratory Rate 20 Blood Pressure 168/71 H Pulse Oximetry 95 Oxygen Delivery 07/09/24 08:00 07/09/24 10:00 07/09/24 12:00 Temperature 96.3 F L Pulse Rate 74 82 78 Respiratory Rate 16 Blood Pressure 143/79 H Pulse Oximetry 100 Oxygen Delivery 07/09/24 18:18 07/09/24 18:20 Temperature 99.9 F H 99.9 F H Pulse Rate Respiratory Rate Blood Pressure 143/71 H Pulse Oximetry Oxygen Delivery Intake/Output Intake/Output: Intake & Output 07/06/24 07/07/24 07/08/24 07/09/24 23:59 23:59 23:59 23:59 Intake Total 1680.0 1050 1350 120 Output Total 2100 1775 1550 1050 Balance -420.0 -449 -351 -711 Meds/Results Medications: Active Medications Generic Name Dose Route Start Last Admin Trade Name Freq PRN Reason Stop Dose Admin Acetaminophen 650 mg 07/04/24 15:46 07/09/24 18:20 Acetaminophen 325 Mg Tablet PO 650 mg Q4H PRN Administration Mild Pain (1-3) or Fever Hydrocodone Bitart/Acetaminophen 1 tab 07/04/24 15:46 Hydrocodone/Acetaminophen (*Crx) 5-325 Mg Tablet PO Q4H PRN Moderate Pain (4-6) Albuterol/Ipratropium 3 ml 07/05/24 09:53 Ipratropium 0.5 Mg/Albuterol Sulfate 2.5 Mg Ampul.Neb 3 Ml INHALATION Q6HRT PRN Shortness of breath or wheezing Amlodipine Besylate 5 mg 07/05/24 21:00 07/09/24 09:22 Amlodipine Besylate 5 Mg Tablet PO 5 mg DAILY PETE Administration Carbidopa/Levodopa 1 tablet 07/05/24 09:00 07/09/24 16:27 Carbidopa/Levodopa 25/100 Mg Tablet PO 1 tablet TID@0900,1700,2100 PETE Administration Clopidogrel Bisulfate 75 mg 07/06/24 09:00 07/09/24 10:19 Clopidogrel Bisulfate 75 Mg Tablet PO 75 mg DAILY PETE Administration Dextrose 12.5 gm 07/04/24 16:08 07/04/24 18:16 Dextrose 50% 25 Gm/50 Ml Syringe IV PUSH 12.5 gm PRN PRN Administration Hypoglycemia Protocol Finasteride 5 mg 07/07/24 09:00 07/09/24 09:22 Finasteride 5 Mg Tablet PO 5 mg QAM PETE Administration Glucagon 1 mg 07/04/24 16:08 Glucagon For Inj 1 Mg Vial IM PRN PRN Hypoglycemia Protocol Glucose 15 gm 07/04/24 16:08 Glucose Oral Gel 15 Gm Of Glucse In 37.5 Gm Tube PO PRN PRN Hypoglycemia Protocol Hydralazine HCl 10 mg 07/04/24 16:40 07/09/24 16:27 Hydralazine Hcl 20 Mg/Ml Vial IV PUSH 10 mg Q8H PRN Administration Blood Pressure - High Hydromorphone HCl 0.5 mg 07/04/24 16:44 Hydromorphone Hcl Inj (*Crx) 1 Mg/Ml Syr IV PUSH Q6HR PRN Pain Rated 7-10 Dextrose 1,000 mls @ 100 mls/hr 07/04/24 16:08 Dextrose 5% 1,000 Ml IVPB PRN PRN Hypoglycemia Protocol Insulin Aspart 1 - 2 units 07/05/24 21:00 07/08/24 20:18 Insulin Aspart (*Bkc) 100 Units/Ml SUB-Q 1 units HS PETE Administration Protocol Insulin Aspart 2 - 5 units 07/05/24 17:00 07/09/24 18:06 Insulin Aspart (*Bkc) 100 Units/Ml SUB-Q Not Given TIDWM PETE Protocol Insulin Glargine 10 units 07/05/24 08:50 07/09/24 09:22 Insulin Glargine (*Bkc) 100 Units/Ml SUB-Q 10 units QAM PETE Administration Levetiracetam 250 mg/ 750 mg 07/06/24 21:00 07/09/24 09:22 Levetiracetam 500 mg PO 750 mg Q12HR PETE Administration Ondansetron HCl 4 mg 07/04/24 15:46 07/09/24 18:10 Ondansetron Inj 4 Mg/2 Ml Vial IV PUSH 4 mg Q6H PRN Administration Nausea And Vomiting Pantoprazole Sodium 40 mg 07/07/24 09:00 07/09/24 09:22 Pantoprazole 40 Mg Tablet PO 40 mg QAM PETE Administration Primidone 25 mg 07/05/24 21:00 07/08/24 20:01 Primidone 25 Mg Tablet PO 25 mg HS PETE Administration Tamsulosin HCl 0.4 mg 07/06/24 09:00 07/09/24 09:22 Tamsulosin Hcl 0.4 Mg Capsule PO 0.4 mg DAILY PETE Administration Radiology Results: ITS Impressions Abdomen/Pelvis CT 07/04/24 14:33 IMPRESSION: 1. Bilateral inguinal hernias containing fat. Chest X-Ray 07/06/24 09:40 IMPRESSION: 1. No acute cardiopulmonary disease. MRCP 07/06/24 11:23 IMPRESSION: 1. Worsened acute on chronic pancreatitis. 2. No choledocholithiasis. Labs Labs: Laboratory Results - last 24 hr 07/08/24 07/09/24 07/09/24 20:12 05:50 07:29 WBC 6.2 RBC 4.39 L Hgb 11.3 L Hct 34.8 L MCV 79.3 L MCH 25.7 L MCHC 32.5 RDW 15.9 H Plt Count 168 MPV 9.5 Immature Gran % (Auto) 0.5 Neut % (Auto) 80.6 H Lymph % (Auto) 8.3 L [place] % (Auto) 8.2 Eos % (Auto) 2.1 Baso % (Auto) 0.3 Lymph # (Auto) 0.52 L [place] # (Auto) 0.5 Eos # (Auto) 0.1 Baso # (Auto) 0.0 Abs Immat Gran (auto) 0.03 Absolute Neuts (auto) 5.0 Absolute Nucleated RBC 0.000 Nucleated RBC % 0.0 Sodium 131 L Potassium 3.9 Chloride 100 Carbon Dioxide 27 Anion Gap 4 BUN 20 Creatinine 1.20 Estim Creat Clear Calc 37 Estimated GFR 57 L Glucose 138 H POC Capillary Glucose 208 H 142 H Calcium 9.0 Total Bilirubin 0.5 AST 22 ALT 6 Alkaline Phosphatase 104 Total Protein 6.0 L Albumin 3.3 L Triglycerides 118 Lipase 402 H 07/09/24 07/09/24 11:53 16:31 WBC RBC Hgb Hct MCV MCH MCHC RDW Plt Count MPV Immature Gran % (Auto) Neut % (Auto) Lymph % (Auto) [place] % (Auto) Eos % (Auto) Baso % (Auto) Lymph # (Auto) [place] # (Auto) Eos # (Auto) Baso # (Auto) Abs Immat Gran (auto) Absolute Neuts (auto) Absolute Nucleated RBC Nucleated RBC % Sodium Potassium Chloride Carbon Dioxide Anion Gap BUN Creatinine Estim Creat Clear Calc Estimated GFR Glucose POC Capillary Glucose 258 H 193 H Calcium Total Bilirubin AST ALT Alkaline Phosphatase Total Protein Albumin Triglycerides Lipase
[2024-07-09 21:00] LABS: Glucose Point of Care 175 mg/dl (65-105)
[2024-07-09] MEDS: PRIMIDONE 25 MG TABLET PO (21:32)
[2024-07-10] VITALS (7 sets, daily range): BP systolic 106–161; BP diastolic 63–100; PULSE 77–96; RESP 16–20; TEMP 36.2–37.4; O2SAT 94–100
[2024-07-10] MEDS: TAMSULOSIN HCL 0.4 MG CAPSULE PO (08:22)
[2024-07-10] MEDS: levETIRAcetam Tablet 250 MG, levETIRAcetam Tablet 500 MG 750 MG PO ×2 (08:22→21:10)
[2024-07-10] MEDS: CARBIDOPA/LEVODOPA 25/100 MG TABLET 1 TABLET PO ×3 (08:22→21:11)
[2024-07-10] MEDS: CLOPIDOGREL BISULFATE 75 MG TABLET PO (08:23)
[2024-07-10] MEDS: PANTOPRAZOLE 40 MG TABLET PO (08:23)
[2024-07-10] MEDS: FINASTERIDE 5 MG TABLET PO (08:23)
[2024-07-10] MEDS: amLODIPine BESYLATE 5 MG TABLET PO (08:23)
[2024-07-10] MEDS: INSULIN GLARGINE (*BKC) 100 UNITS/ML 10 UNITS SUB-Q (08:28)
[2024-07-10 08:35] LABS: Glucose Point of Care 152 mg/dl (65-105)
[2024-07-10] MEDS: ACETAMINOPHEN 325 MG TABLET 650 MG PO (08:39)
[2024-07-10 11:26] LABS: Glucose Point of Care 338 mg/dl (65-105)
--- NOTE | 2024-07-10 14:10 | P.PNIM_ITS ---
Progress Note: A&P Assessment and Plan (1) Acute on chronic pancreatitis: Code(s): K85.90 - Acute pancreatitis without necrosis or infection, unspecified; K86.1 - Other chronic pancreatitis Status: Acute Assessment and Plan: * CT of the abdomen pelvis show bilateral inguinal hernia containing fat * MRCP showed worsened acute on chronic pancreatitis, no choledocholithiasis * Possibly related to sitagliptin * GI following * Initial lipase 1874 now trending downward (2) SCARLETT (acute kidney injury): Code(s): N17.9 - Acute kidney failure, unspecified Status: Resolved Assessment and Plan: * Initially 2.21 creatinine * Creatinine now 1.40 at baseline * Baseline creatinine 1.4-1.5 * Treated with IV fluids * Continue Mcclain catheter with possible voiding trial in 1-2 weeks * Continue Flomax and Proscar (3) Pancytopenia: Code(s): D61.818 - Other pancytopenia Status: Acute Assessment and Plan: * White blood cell count 3.9, RBC 4.21, platelet count 128 * Continue to monitor and trend (4) Seizure disorder: Code(s): G40.909 - Epilepsy, unspecified, not intractable, without status epilepticus Status: Acute Assessment and Plan: * Continue Keppra (5) COPD (chronic obstructive pulmonary disease): Code(s): J44.9 - Chronic obstructive pulmonary disease, unspecified Status: Chronic Assessment and Plan: * Continue albuterol as needed (6) BPH (benign prostatic hyperplasia): Code(s): N40.0 - Benign prostatic hyperplasia without lower urinary tract symptoms Status: Acute Assessment and Plan: * Continue tamsulosin and Proscar * Continue Mcclain catheter upon discharge * Voiding trial in 1-2 weeks (7) Parkinson disease: Qualifiers: Dyskinesia presence: unspecified whether dyskinesia Fluctuating manifestations: unspecified whether manifestations fluctuate Qualified Code(s): G20.A1 - Parkinson's disease without dyskinesia, without mention of fluctuations Code(s): G20 - Parkinson's disease Status: Acute Assessment and Plan: * Continue Sinemet and primidone * Continue PT/OT (8) CAD (coronary artery disease): Code(s): I25.10 - Atherosclerotic heart disease of [place] coronary artery without angina pectoris Status: Acute Assessment and Plan: * Continue Plavix (9) Diabetes: Qualifiers: Diabetes mellitus complication detail: with unspecified neuropathy Diabetes mellitus complication status: with neurologic complications Diabetes mellitus nursing home insulin use: without terminal operator use Diabetes mellitus type: type 2 Qualified Code(s): E11.40 - Type 2 diabetes mellitus with diabetic neuropathy, unspecified Code(s): E11.9 - Type 2 diabetes mellitus without complications Status: Acute Assessment and Plan: originally presented with DKA, now resolved * Blood sugars ranging 175-381 * Hgb A1C 7.7 * Accu checks AC/HS * Low-dose SSI ordered * Continue Lantus 10 units in the morning * Continue to hold metformin, Januvia, and Jardiance * Januvia is the likely cause of his pancreatitis, will hold on discharge * hypoglycemic protocol in place * Diabetic diet ordered (10) UTI (urinary tract infection): Code(s): N39.0 - Urinary tract infection, site not specified Status: Acute Assessment and Plan: * Urine culture was negative * UTI ruled out Time Spent With Patient Time with patient: Greater than 35 minutes Subjective Date/time seen: 07/10/24 14:10 Interval history: This is an 88-year-old male who presented to the hospital on 07/04/2024 with [place] and vomiting. MRCP shown pancreatitis. Was treated for DKA Patient reported abdominal pain and nausea this a.m otherwise no new complaints. He is awaiting rehab placement. Labs and imaging reviewed. Review of Systems Review of Systems: ROS unobtainable: Yes unobtainable due to medical condition and unobtainable due to mental status Constitutional: Constitutional: Reports as per HPI and Reports no additional constitutional complaints Eyes: Eyes: Reports as per HPI and Reports no additional eye complaints ENT: Reports system reviewed and no additional complaints, except as documented and Reports as per HPI Cardiovascular: Cardiovascular: Reports as per HPI and Reports no additional cardiovascular complaints Respiratory: Respiratory: Reports as per HPI and Reports no additional respiratory complaints Gastrointestinal: Gastrointestinal: Reports as per HPI and Reports no additional gastrointestinal complaints Genitourinary: Genitourinary: Reports no additional male genitourinary complaints and Reports as per HPI Musculoskeletal: Musculoskeletal: Reports no additional musculoskeletal complaints and Reports as per HPI Integumentary/Breasts: Skin/Breast: Reports system reviewed and no additional complaints, except as docu and Reports as per HPI Neurologic: Reports system reviewed and no additional complaints, except as documented and Reports as per HPI Psychiatric: Psychiatric: Reports no additional psychiatric complaints and Reports as per HPI Exam Narrative: General: In no acute distress, well nourished Head: atraumatic, no encephalopathy Eyes: PERRLA, sclera clear ENT: moist mucous membranes, nasal passages clear Neck: supple, no JVD, no adenopathy, trachea midline Cardiac: Normal S1 and S2. No murmur, gallops or friction rubs, peripheral pulses intact. Respiratory: Lungs clear to auscultation, no adventitious lung sounds, currently on room air Gastrointestinal: soft, non-distended, non-tender, normoactive bowel sounds. : voiding without difficulty. Extremities: moves all extremities well, no edema, good ROM, strength 5/5 Skin: lesion on left deltoid Neuro: Alert and oriented x4, cranial nerves intact, no neuro deficits. Psych: normal mood, normal affect, interactive Objective Data Vital Signs Vital Signs: Vital Signs - 24 hr 07/09/24 18:18 07/09/24 18:20 07/09/24 19:00 Temperature 99.9 F H 99.9 F H 99.5 F Pulse Rate Respiratory Rate Blood Pressure 143/71 H Pulse Oximetry Oxygen Delivery 07/09/24 20:00 07/09/24 20:15 07/10/24 00:40 Temperature 97.9 F 97.3 F L Pulse Rate 100 100 79 Respiratory Rate 20 20 20 Blood Pressure 131/74 126/65 Pulse Oximetry 98 98 100 Oxygen Delivery Room Air 07/10/24 04:35 07/10/24 08:00 07/10/24 08:20 Temperature 97.1 F L 97.9 F Pulse Rate 96 91 Respiratory Rate 20 16 Blood Pressure 161/82 H 148/91 H Pulse Oximetry 94 100 Oxygen Delivery Room Air 07/10/24 11:54 Temperature 97.3 F L Pulse Rate 86 Respiratory Rate 16 Blood Pressure 106/63 Pulse Oximetry 100 Oxygen Delivery Intake/Output Intake/Output: Intake & Output 07/07/24 07/08/24 07/09/24 07/10/24 23:59 23:59 23:59 23:59 Intake Total 1050 9926 998 6873 Output Total 1775 1550 1050 450 Balance -725 200 -930 620 Meds/Results Medications: Active Medications Generic Name Dose Route Start Last Admin Trade Name Freq PRN Reason Stop Dose Admin Acetaminophen 650 mg 07/04/24 15:46 07/10/24 08:39 Acetaminophen 325 Mg Tablet PO 650 mg Q4H PRN Administration Mild Pain (1-3) or Fever Hydrocodone Bitart/Acetaminophen 1 tab 07/04/24 15:46 Hydrocodone/Acetaminophen (*Crx) 5-325 Mg Tablet PO Q4H PRN Moderate Pain (4-6) Albuterol/Ipratropium 3 ml 07/05/24 09:53 Ipratropium 0.5 Mg/Albuterol Sulfate 2.5 Mg Ampul.Neb 3 Ml INHALATION Q6HRT PRN Shortness of breath or wheezing Amlodipine Besylate 5 mg 07/05/24 21:00 07/10/24 08:23 Amlodipine Besylate 5 Mg Tablet PO 5 mg DAILY PETE Administration Carbidopa/Levodopa 1 tablet 07/05/24 09:00 07/10/24 08:22 Carbidopa/Levodopa 25/100 Mg Tablet PO 1 tablet TID@0900,1700,2100 PETE Administration Clopidogrel Bisulfate 75 mg 07/06/24 09:00 07/10/24 08:23 Clopidogrel Bisulfate 75 Mg Tablet PO 75 mg DAILY PETE Administration Dextrose 12.5 gm 07/04/24 16:08 07/04/24 18:16 Dextrose 50% 25 Gm/50 Ml Syringe IV PUSH 12.5 gm PRN PRN Administration Hypoglycemia Protocol Finasteride 5 mg 07/07/24 09:00 07/10/24 08:23 Finasteride 5 Mg Tablet PO 5 mg QAM PETE Administration Glucagon 1 mg 07/04/24 16:08 Glucagon For Inj 1 Mg Vial IM PRN PRN Hypoglycemia Protocol Glucose 15 gm 07/04/24 16:08 Glucose Oral Gel 15 Gm Of Glucse In 37.5 Gm Tube PO PRN PRN Hypoglycemia Protocol Hydralazine HCl 10 mg 07/04/24 16:40 07/09/24 16:27 Hydralazine Hcl 20 Mg/Ml Vial IV PUSH 10 mg Q8H PRN Administration Blood Pressure - High Hydromorphone HCl 0.5 mg 07/04/24 16:44 Hydromorphone Hcl Inj (*Crx) 1 Mg/Ml Syr IV PUSH Q6HR PRN Pain Rated 7-10 Dextrose 1,000 mls @ 100 mls/hr 07/04/24 16:08 Dextrose 5% 1,000 Ml IVPB PRN PRN Hypoglycemia Protocol Insulin Aspart 1 - 2 units 07/05/24 21:00 07/09/24 21:20 Insulin Aspart (*Bkc) 100 Units/Ml SUB-Q Not Given HS PETE Protocol Insulin Aspart 2 - 5 units 07/05/24 17:00 07/10/24 08:23 Insulin Aspart (*Bkc) 100 Units/Ml SUB-Q Not Given TIDWM PETE Protocol Insulin Glargine 10 units 07/05/24 08:50 07/10/24 08:28 Insulin Glargine (*Bkc) 100 Units/Ml SUB-Q 10 units QAM PETE Administration Levetiracetam 250 mg/ 750 mg 07/06/24 21:00 07/10/24 08:22 Levetiracetam 500 mg PO 750 mg Q12HR PETE Administration Ondansetron HCl 4 mg 07/04/24 15:46 07/09/24 18:10 Ondansetron Inj 4 Mg/2 Ml Vial IV PUSH 4 mg Q6H PRN Administration Nausea And Vomiting Pantoprazole Sodium 40 mg 07/07/24 09:00 07/10/24 08:23 Pantoprazole 40 Mg Tablet PO 40 mg QAM EPTE Administration Primidone 25 mg 07/05/24 21:00 07/09/24 21:32 Primidone 25 Mg Tablet PO 25 mg HS PETE Administration Tamsulosin HCl 0.4 mg 07/06/24 09:00 07/10/24 08:22 Tamsulosin Hcl 0.4 Mg Capsule PO 0.4 mg DAILY PETE Administration Radiology Results: ITS Impressions Abdomen/Pelvis CT 07/04/24 14:33 IMPRESSION: 1. Bilateral inguinal hernias containing fat. Chest X-Ray 07/06/24 09:40 IMPRESSION: 1. No acute cardiopulmonary disease. MRCP 07/06/24 11:23 IMPRESSION: 1. Worsened acute on chronic pancreatitis. 2. No choledocholithiasis. Labs Labs: Laboratory Results - last 24 hr 07/09/24 07/09/24 07/10/24 16:31 20:19 08:22 POC Capillary Glucose 193 H 175 H 152 H 07/10/24 11:18 POC Capillary Glucose 338 H Quality VTE Prophylaxis VTE prophylaxis: mechanical ordered and pharmacologic ordered
[2024-07-10 14:41] LABS: Hematocrit 33.1 % (42.0-52.0); Hemoglobin 10.9 g/dL (14.0-18.0); Mean Corpuscular HGB Conc 32.9 g/dl (32-36); Mean Corpuscular Hemoglobin 25.9 pg (26-34); Mean Corpuscular Volume 78.6 fl (80-100); Mean Platelet Volume 9.3 fl (7.4-10.4); Platelet Count Result 128 k/mm3 (150-375); Red Blood Count 4.21 M/mm3 (4.6-6.20); Red Cell Distribution Width 16.2 % (11.5-14.5); White Blood Count 3.9 K/mm3 (4.5-10.0)
[2024-07-10 14:56] LABS: Alanine Aminotransferase 9 U/L (6-50); Albumin Level 2.9 g/dL (3.5-5.1); Alkaline Phosphatase 89 U/L (38-126); Anion Gap 3 mmol/L (4-12); Aspartate Amino Transferase 20 U/L (17-59); Bilirubin,Total 0.4 mg/dL (0.2-1.3); Blood Urea Nitrogen 24 mg/dL (9-20); Calcium 8.2 mg/dL (8.4-10.2); Carbon Dioxide 25 mmol/L (22-30); Chloride 94 mmol/L (98-107); Estimated CRCL calculation 32 ml/min; Estimated Glomerular Filt Rate 48; Glucose 381 mg/dL (65-110); Potassium 4.2 mmol/L (3.4-5.0); Sodium 122 mmol/L (137-145)
[2024-07-10] MEDS: INSULIN ASPART (*BKC) 100 UNITS/ML SUB-Q ×2 (15:27→17:14)
[2024-07-10 15:51] LABS: Band Neutrophils Percent 6 % (0-6); Lymphocytes Absolute Manual 0.23 K/mm3 (1.1-4.5); Monocytes Absolute Manual 0.15 K/mm3 (0.1-0.90); Monocytes Percent Manual 4 % (3-9); Neutrophils Absolute Manual 3.51 K/mm3 (1.3-6.7); Neutrophils Percent Manual 84 % (46-73); Platelet Estimate Slightly Decreased (Adequate); Total Cells Counted 100
[2024-07-10 15:52] LABS: Anisocytosis 2+; Schistocytes None Seen
[2024-07-10 16:52] LABS: Glucose Point of Care 273 mg/dl (65-105)
[2024-07-10 17:19] LABS: Lipase 409 U/L (23-300)
[2024-07-10] MEDS: hydrALAZINE 10 MG TABLET PO (21:10)
[2024-07-10] MEDS: PRIMIDONE 25 MG TABLET PO (21:10)
[2024-07-11 00:08] LABS: Glucose Point of Care 160 mg/dl (65-105)
[2024-07-11 02:00] VITALS: BP 132/74; PULSE 77; RESP 20; TEMP 37.4; O2SAT 99
[2024-07-11 06:00] VITALS: BP 140/68; PULSE 74; RESP 18; TEMP 36.3; O2SAT 97
[2024-07-11 07:37] LABS: Basophils Percent Auto 0.3 % (0.2-1.2); Eosinophils Absolute Auto 0.1 K/mm3 (0-0.3); Eosinophils Percent Auto 1.8 % (0-4.4); Hematocrit 33.5 % (42.0-52.0); Hemoglobin 11.2 g/dL (14.0-18.0); Immature Granulocyte Absolute 0.03 K/mm3 (0.00-0.031); Immature Granulocyte Percent A 0.8 % (0-0.5); Lymphocytes Absolute Auto 0.39 K/mm3 (0.9-3.2); Lymphocytes Percent Auto 9.8 % (18.3-44.2); Mean Corpuscular HGB Conc 33.4 g/dl (32-36); Mean Corpuscular Hemoglobin 25.9 pg (26-34); Mean Corpuscular Volume 77.4 fl (80-100); Mean Platelet Volume 9.5 fl (7.4-10.4); Monocytes Absolute Auto 0.4 K/mm3 (0.1-0.6); Monocytes Percent Auto 9.3 % (2.6-8.5); Neutrophils Absolute Auto 3.1 K/mm3 (1.3-6.7); Platelet Count Result 142 k/mm3 (150-375); Red Blood Count 4.33 M/mm3 (4.6-6.20); Red Cell Distribution Width 16.3 % (11.5-14.5)
[2024-07-11 07:56] LABS: Albumin Level 3.1 g/dL (3.5-5.1); Alkaline Phosphatase 87 U/L (38-126); Anion Gap 3 mmol/L (4-12); Aspartate Amino Transferase 23 U/L (17-59); Bilirubin,Total 0.4 mg/dL (0.2-1.3); Blood Urea Nitrogen 23 mg/dL (9-20); Calcium 8.6 mg/dL (8.4-10.2); Carbon Dioxide 27 mmol/L (22-30); Chloride 98 mmol/L (98-107); Estimated CRCL calculation 23 ml/min; Estimated Glomerular Filt Rate 48; Glucose 154 mg/dL (65-110); Potassium 3.5 mmol/L (3.4-5.0); Sodium 128 mmol/L (137-145)
[2024-07-11 08:00] VITALS: BP 160/81; PULSE 67; RESP 16; TEMP 36.2; O2SAT 100
[2024-07-11 08:08] LABS: Alanine Aminotransferase < 6 U/L (6-50)
[2024-07-11 08:21] LABS: Glucose Point of Care 162 mg/dl (65-105)
[2024-07-11] MEDS: TAMSULOSIN HCL 0.4 MG CAPSULE PO (10:15)
[2024-07-11] MEDS: amLODIPine BESYLATE 5 MG TABLET PO (10:15)
[2024-07-11] MEDS: PANTOPRAZOLE 40 MG TABLET PO (10:15)
[2024-07-11] MEDS: levETIRAcetam Tablet 250 MG, levETIRAcetam Tablet 500 MG 750 MG PO ×2 (10:15→20:03)
[2024-07-11] MEDS: CLOPIDOGREL BISULFATE 75 MG TABLET PO (10:15)
[2024-07-11] MEDS: CARBIDOPA/LEVODOPA 25/100 MG TABLET 1 TABLET PO ×3 (10:16→20:04)
[2024-07-11] MEDS: FINASTERIDE 5 MG TABLET PO (10:16)
[2024-07-11] MEDS: hydrALAZINE 10 MG TABLET PO ×4 (10:16→20:04)
[2024-07-11] MEDS: INSULIN GLARGINE (*BKC) 100 UNITS/ML 10 UNITS SUB-Q (10:23)
[2024-07-11 12:00] VITALS: BP 119/76; PULSE 90; RESP 16; TEMP 36.4; O2SAT 100
[2024-07-11 12:04] LABS: Glucose Point of Care 345 mg/dl (65-105)
[2024-07-11] MEDS: INSULIN ASPART (*BKC) 100 UNITS/ML SUB-Q ×3 (12:18→20:36)
--- NOTE | 2024-07-11 15:26 | PM.DS ---
DS: Admitting Diagnosis Discharge Date 07/11/24 Admitting Diagnosis DKA Metabolic acidosis Acute on chronic pancreatitis Acute renal failure superimposed on stage 3 chronic kidney disease Diabetes BPH UTI Seizure disorder Parkinson's disease Coronary artery COPD Hypertension hyperlipidemia DS: Discharge Diagnosis Discharge Diagnosis (1) Acute on chronic pancreatitis: Code(s): K85.90 - Acute pancreatitis without necrosis or infection, unspecified; K86.1 - Other chronic pancreatitis Status: Acute (2) SCARLETT (acute kidney injury): Code(s): N17.9 - Acute kidney failure, unspecified Status: Resolved (3) Pancytopenia: Code(s): D61.818 - Other pancytopenia Status: Acute (4) Seizure disorder: Code(s): G40.909 - Epilepsy, unspecified, not intractable, without status epilepticus Status: Acute (5) COPD (chronic obstructive pulmonary disease): Code(s): J44.9 - Chronic obstructive pulmonary disease, unspecified Status: Chronic (6) BPH (benign prostatic hyperplasia): Code(s): N40.0 - Benign prostatic hyperplasia without lower urinary tract symptoms Status: Acute (7) Parkinson disease: Qualifiers: Dyskinesia presence: unspecified whether dyskinesia Fluctuating manifestations: unspecified whether manifestations fluctuate Qualified Code(s): G20.A1 - Parkinson's disease without dyskinesia, without mention of fluctuations Code(s): G20 - Parkinson's disease Status: Acute (8) CAD (coronary artery disease): Code(s): I25.10 - Atherosclerotic heart disease of [place] coronary artery without angina pectoris Status: Acute (9) Diabetes: Qualifiers: Diabetes mellitus complication detail: with unspecified neuropathy Diabetes mellitus complication status: with neurologic complications Diabetes mellitus terminal block assembler insulin use: without intermediate use Diabetes mellitus type: type 2 Qualified Code(s): E11.40 - Type 2 diabetes mellitus with diabetic neuropathy, unspecified Code(s): E11.9 - Type 2 diabetes mellitus without complications Status: Acute (10) UTI (urinary tract infection): Code(s): N39.0 - Urinary tract infection, site not specified Status: Acute DS: Summary Hospital Course Reason for hospitalization: DKA Metabolic acidosis Acute on chronic pancreatitis Acute renal failure superimposed on stage 3 chronic kidney disease Diabetes BPH UTI Seizure disorder Parkinson's disease Coronary artery COPD Hypertension hyperlipidemia Hospital Course: This is an 88-year-old male who presented to the hospital on 07/04/2024 with complaint of nausea and vomiting. He was found to be in DKA and was placed on insulin drip initially. He was in the ICU and then transitioned to sliding scale insulin moved out to a regular floor. workup in the hospital included a CT of the abdomen and pelvis which shown bilateral inguinal hernias containing fat. Chest x-ray was negative. Initial labs showed elevated lipase and GI was consulted. Patient had MRCP on 07/06/2024 which shown acute on chronic pancreatitis, no choledocholithiasis. Blood cultures were obtained and were negative. Urine culture was obtained and was negative as well. EKG showed sinus rhythm with a rate of 66, QTC 441. While inpatient he was found to have urinary retention requiring Mcclain to be placed. He was started on Flomax and Proscar. he is stable for discharge at this time. He will need voiding trial in 1-2 weeks. He will also need to follow up with his primary care physician in 1-2 weeks. If he is still having issues with urinary retention he will likely need urologist referral. Final diagnosis: DKA, acute on chronic pancreatitis, acute kidney injury superimposed on chronic kidney disease, urinary retention Status at Discharge Cognitive/behavioral status at discharge: Alert and oriented x3 Functional status at discharge: uses cane/walker Overall status at discharge: patient is progressing back to baseline Time Spent with Patient Time attestation: Total time spent providing and/or coordinating discharge services: Time spent: Greater than 30 minutes Exam Narrative: General: In no acute distress, well nourished Head: atraumatic, no encephalopathy Eyes: PERRLA, sclera clear ENT: moist mucous membranes, nasal passages clear Neck: supple, no JVD, no adenopathy, trachea midline Cardiac: Normal S1 and S2. No murmur, gallops or friction rubs, peripheral pulses intact. Respiratory: Lungs clear to auscultation, no adventitious lung sounds, currently on room air Gastrointestinal: soft, non-distended, non-tender, normoactive bowel sounds. : voiding without difficulty. Extremities: moves all extremities well, no edema, good ROM, strength 5/5 Skin: lesion on left deltoid Neuro: Alert and oriented x4, cranial nerves intact, no neuro deficits. Psych: normal mood, normal affect, interactive DS: Data Data Completed and Pending Completed studies during hospitalization: MRCP Chest x-ray Abdomen/pelvis CT Pending studies at discharge: None Labs on day of discharge: Labs from last 24 hours 07/11/24 07/11/24 07/11/24 11:59 08:11 07:03 WBC 4.0 L RBC 4.33 L Hgb 11.2 L Hct 33.5 L MCV 77.4 L MCH 25.9 L MCHC 33.4 RDW 16.3 H Plt Count 142 L MPV 9.5 Immature Gran % (Auto) 0.8 H Neut % (Auto) 78.0 H Lymph % (Auto) 9.8 L [place] % (Auto) 9.3 H Eos % (Auto) 1.8 Baso % (Auto) 0.3 Lymph # (Auto) 0.39 L [place] # (Auto) 0.4 Eos # (Auto) 0.1 Baso # (Auto) 0.0 Abs Immat Gran (auto) 0.03 Absolute Neuts (auto) 3.1 Absolute Nucleated RBC 0.000 Total Counted Neutrophils % (Manual) Band Neutrophils % Lymphocytes % (Manual) Monocytes % (Manual) Nucleated RBC % 0.0 Abs Neuts (Manual) Abs Lymphs (Manual) Abs Monocytes (Manual) Platelet Estimate Anisocytosis Schistocytes Sodium 128 L Potassium 3.5 Chloride 98 Carbon Dioxide 27 Anion Gap 3 L BUN 23 H Creatinine 1.40 H Estim Creat Clear Calc 23 Estimated GFR 48 L Glucose 154 H POC Capillary Glucose 345 H 162 H Calcium 8.6 Total Bilirubin 0.4 AST 23 ALT < 6 L Alkaline Phosphatase 87 Total Protein 6.0 L Albumin 3.1 L Lipase 07/10/24 07/10/24 07/10/24 21:04 16:49 14:33 WBC 3.9 L RBC 4.21 L Hgb 10.9 L Hct 33.1 L MCV 78.6 L MCH 25.9 L MCHC 32.9 RDW 16.2 H Plt Count 128 L MPV 9.3 Immature Gran % (Auto) Not Reportable Neut % (Auto) Not Reportable Lymph % (Auto) Not Reportable [place] % (Auto) Not Reportable Eos % (Auto) Not Reportable Baso % (Auto) Not Reportable Lymph # (Auto) Not Reportable [place] # (Auto) Not Reportable Eos # (Auto) Not Reportable Baso # (Auto) Not Reportable Abs Immat Gran (auto) Not Reportable Absolute Neuts (auto) Not Reportable Absolute Nucleated RBC Not Reportable Total Counted 100 Neutrophils % (Manual) 84 H Band Neutrophils % 6 Lymphocytes % (Manual) 6.0 L Monocytes % (Manual) 4 Nucleated RBC % Not Reportable Abs Neuts (Manual) 3.51 Abs Lymphs (Manual) 0.23 L Abs Monocytes (Manual) 0.15 Platelet Estimate Slightly decreased Anisocytosis 2+ Schistocytes None seen Sodium Potassium Chloride Carbon Dioxide Anion Gap BUN Creatinine Estim Creat Clear Calc Estimated GFR Glucose POC Capillary Glucose 160 H 273 H Calcium Total Bilirubin AST ALT Alkaline Phosphatase Total Protein Albumin Lipase 07/10/24 14:29 WBC RBC Hgb Hct MCV MCH MCHC RDW Plt Count MPV Immature Gran % (Auto) Neut % (Auto) Lymph % (Auto) [place] % (Auto) Eos % (Auto) Baso % (Auto) Lymph # (Auto) [place] # (Auto) Eos # (Auto) Baso # (Auto) Abs Immat Gran (auto) Absolute Neuts (auto) Absolute Nucleated RBC Total Counted Neutrophils % (Manual) Band Neutrophils % Lymphocytes % (Manual) Monocytes % (Manual) Nucleated RBC % Abs Neuts (Manual) Abs Lymphs (Manual) Abs Monocytes (Manual) Platelet Estimate Anisocytosis Schistocytes Sodium Potassium Chloride Carbon Dioxide Anion Gap BUN Creatinine Estim Creat Clear Calc Estimated GFR Glucose POC Capillary Glucose Calcium Total Bilirubin AST ALT Alkaline Phosphatase Total Protein Albumin Lipase 409 H Procedures/Treatments: None Discharge Plan Discharge Attending physician on discharge: Pooja Malone Consulting providers: Bijan Rodriguez; Jose Ramon Jaeger; Chester Maravilla; Freya Blanton; Keysha Kim; Dustin Palacios; Elliott Hernandez V. Discharging Clinician: Miriam Otero Anticipated Discharge Date/Time: 07/11/24 13:46 Patient Disposition: Home Health Service Activity: as tolerated Diet: as tolerated Discharge Instructions: Per Care Coordination: [facility] will contact you prior to their first visit. [facility] will follow for RN and PT/OT eval and treat. [facility] can be contacted at [phone]. Nursing fax discharge paperwork to [phone]. You will need a voiding trial in 2 weeks. Continue catheter for now. Follow up with primary care physician in 1 week. You were also started on amlodipine due to your high blood pressure, keep taking this medication and follow up with your primary care doctor regarding this. Patient Instructions: Antibiotic Form Patient Language: Armenian Stand Alone Forms: General Discharge Information Follow-up/Referrals: Anne Diaz, [employer]OOM MACHINE OPERATOR-C [Primary Care Provider] - 1 Week Discharge Medications: New amlodipine [Norvasc] 5 mg Tablet 5 mg PO DAILY Qty: 30 0RF Continued carbidopa-levodopa 25-100 mg tablet 1 tablet PO TID Rx Instructions: 0900, 1700, 2100 primidone 50 mg tablet 25 mg PO HS clopidogrel 75 mg tablet 75 mg PO DAILY tamsulosin 0.4 mg capsule 0.4 mg PO DAILY pantoprazole 40 mg tablet,delayed release (DR/EC) 40 mg PO DAILY Januvia 100 mg tablet 100 mg PO DAILY Jardiance 25 mg tablet 25 mg PO DAILY metformin 500 mg tablet 1,000 mg PO BID MDD 500mg 2 tabs 2x day Qty: 360 0RF levetiracetam 750 mg tablet See Rx Instructions .ROUTE .COMPLEX Qty: 180 1RF Dose Instruction: TAKE 1 TABLET BY MOUTH EVERY 12 HOURS Rx Instructions: TAKE 1 TABLET BY MOUTH EVERY 12 HOURS sertraline [Zoloft] 50 mg tablet 150 mg PO DAILY Qty: 180 0RF Date of admission: 07/04/24 18:08 Primary Care Provider: Anne Diaz Admitting Provider: Jose Garrison Attending physician on admission: Miriam Otero Condition: Improved Quality VTE Prophylaxis VTE prophylaxis: mechanical ordered and pharmacologic ordered Hospitalist MIPS Heart Failure (Exclusion) Patient has history of Heart Transplant or Left Ventricular Assistive Device?: No IF YES, STOP HERE Heart Failure (Qualifier) Patient has current or prior documentation of LVEF less than or equal to 40%, or mod/servere depressed LVSF?: No IF NO, STOP HERE
[2024-07-11 16:00] VITALS: BP 146/71; PULSE 79; RESP 16; TEMP 36.9; O2SAT 99
[2024-07-11 17:28] LABS: Glucose Point of Care 300 mg/dl (65-105)
[2024-07-11] MEDS: PRIMIDONE 25 MG TABLET PO (20:04)
[2024-07-11 20:06] VITALS: BP 124/64; PULSE 85; RESP 20; TEMP 36.4; O2SAT 99
[2024-07-12 01:23] LABS: Glucose Point of Care 356 mg/dl (65-105)
== END 2024-07-11 23:05 | DRG 637 ==
LOC: ANHED 15:14 → ANHICU 17:54 → ANHIMU 07-05 17:28 → ANH3MEDSUR 07-09 11:13
PROVIDERS: Nurse Practitioner Family; Physician Assistant; Admitting Provider General Practice; Emergency Provider Preventive Medicine Aerospace Medicine; PCP Nurse Practitioner Family; Visit Provider Nurse Practitioner Acute Care
DX: E11.10 Type 2 diabetes mellitus with ketoacidosis without coma (principal); K85.90 Acute pancreatitis without necrosis or infection, unspecified; K86.1 Other chronic pancreatitis; N17.9 Acute kidney failure, unspecified; K86.2 Cyst of pancreas; D61.818 Other pancytopenia; D50.9 Iron deficiency anemia, unspecified; E11.43 Type 2 diabetes mellitus with diabetic autonomic (poly)neuropathy; E86.0 Dehydration; E78.5 Hyperlipidemia, unspecified; E11.40 Type 2 diabetes mellitus with diabetic neuropathy, unspecified; E11.22 Type 2 diabetes mellitus with diabetic chronic kidney disease; G20.A1 Parkinson's disease without dyskinesia, without mention of fluctuations; G40.909 Epilepsy, unspecified, not intractable, without status epilepticus; H54.7 Unspecified visual loss; H91.90 Unspecified hearing loss, unspecified ear; I12.9 Hypertensive chronic kidney disease with stage 1 through stage 4 chronic kidney disease, or unspecified chronic kidney disease; I25.10 Atherosclerotic heart disease of native coronary artery without angina pectoris; J44.9 Chronic obstructive pulmonary disease, unspecified; K86.9 Disease of pancreas, unspecified; K40.20 Bilateral inguinal hernia, without obstruction or gangrene, not specified as recurrent; K21.9 Gastro-esophageal reflux disease without esophagitis; K31.84 Gastroparesis; N40.1 Benign prostatic hyperplasia with lower urinary tract symptoms; N18.30 Chronic kidney disease, stage 3 unspecified; R33.8 Other retention of urine; R31.9 Hematuria, unspecified; Z66 Do not resuscitate; Z86.73 Personal history of transient ischemic attack (TIA), and cerebral infarction without residual deficits; Z79.02 Long term (current) use of antithrombotics/antiplatelets; Z79.84 Long term (current) use of oral hypoglycemic drugs; Z87.891 Personal history of nicotine dependence
CPT/HCPCS: 36415; 71045; 74176; 74181; 76376; 80048; 80053; 80143; 80179; 81001; 82010; 82803; 82948; 83036; 83605; 83690; 83735; 84100; 84478; 85025; 87040; 87086; 87641; 92610; 96361; 96365; 96367; 96375; 96376; 97110; 97116; 97161; 97165; 97530; 97535; 99285; A9270; G0378; J0360; J0692; J1644; J1815; J1953; J2405; J2470; J3480; J7040; J7120